=== PATIENT | male | born 1965 | race Caucasian/White ===

== ENCOUNTER 2018-06-09 12:41 | Emergency (ER) | payer MEDICAID ==
[2018-06-09] MEDS ORDERED: CLINDAMYCIN 150 MG CAPSULE PO STA (15:07)
--- NOTE | 2018-06-09 15:21 | ED Physician Documentation ---
History of Present Illness - Stated complaint Stated Complaint: FACE SWELLING - Chief complaint Chief Complaint: Heent - History obtained from History obtained from: Patient - History of Present Illness Timing: How many days ago (4) Pain level max: 7 Pain level now: 5 - Additonal information Additional information: 53-year-old male with right sided facial swelling and pain for the past 4-5 days. Has had rhinorrhea and congestion. No fevers. Nothing makes it better. Worse with palpation and movement Review of Systems Constitutional: denies: Fever Respiratory: denies: Cough GI: denies: Nausea, Vomiting, Diarrhea Skin: denies: Rash Musculoskeletal: denies: Neck pain, Back pain PD PAST MEDICAL HISTORY - Past Medical History Past Medical History: Yes Cardiovascular: Hypertension, High cholesterol Endocrine/Autoimmune: Type 2 diabetes - Past Surgical History Past Surgical History: Yes - Present Medications Home Medications: Ambulatory Orders Medication Instructions Recorded Confirmed Amlodipine Besylate [Norvasc] 5 mg PO DAILY #30 tablet 02/21/15 Buprenorphine HCl/Naloxone HCl 1 film SL ONCE 02/21/15 02/21/15 [Suboxone 8 mg-2 mg Sl Film] metFORMIN [Glucophage] 500 mg PO BIDWM #60 tablet 02/21/15 Clindamycin HCl [Clindamycin 300MG 300 mg PO Q6H #40 capsule 06/09/18 CAP] - Allergies Allergies/Adverse Reactions: Allergies Allergy/AdvReac Type Severity Reaction Status Date / Time Penicillins Allergy Unknown Verified 06/09/18 12:46 - Social History Does the pt smoke?: Yes Smoking Status: Current every day smoker Does the pt drink ETOH?: No Does the pt have substance abuse?: Yes - Immunizations Immunizations are current?: No Immunizations: TDAP >10years/unknown - POLST Patient has POLST: No PD ED PE NORMAL - Vitals Vital signs reviewed: Yes - General General: Alert and oriented X 3, No acute distress - HEENT HEENT: PERRL, EOMI, Ears normal, Moist mucous membranes, Pharynx benign, Other (Edentulous on the maxilla. There is swelling and tenderness to the upper lip extending up the cheek. No drainable abscess.) - Neck Neck: Supple, no meningeal sign - Cardiac Cardiac: RRR - Respiratory Respiratory: No respiratory distress, Clear bilaterally - Derm Derm: Warm and dry - Neuro Neuro: Alert and oriented X 3 Results - Vitals Vitals: Vital Signs - 24 hr 06/09/18 12:47 Temperature 36.6 C Heart Rate 113 H Respiratory 16 Rate Blood Pressure 178/94 H O2 Saturation 97 Oxygen O2 Source Room air PD MEDICAL DECISION MAKING - ED course Complexity details: considered differential, d/w patient ED course: 53-year-old male presents the emergency department with cellulitis of the face, likely dental in origin. He is allergic to penicillin, will place on clindamycin. We will have him follow-up closely with his doctor. He is well- appearing, nontoxic. Afebrile. Patient counseled regarding signs and symptoms for which I believe and urgent re-evaluation would be necessary. Patient with good understanding of and agreement to plan and is comfortable going home at this time This document was made in part using voice recognition software. While efforts are made to proofread this document, sound alike and grammatical errors may occur. No evidence of orbital cellulitis Departure - Departure Disposition: 01 Home, Self Care Clinical Impression: Facial cellulitis Condition: Good Instructions: ED Cellulitis Facial Follow-Up: your,doctor in 2-3 days for skin check [Other] Prescriptions: Clindamycin HCl [Clindamycin 300MG CAP] 300 mg PO Q6H #40 capsule Comments: Take all antibiotics until gone. Return if you worsen. Follow-up with your doctor for further care.
[2018-06-09 15:49] VITALS: BP 168/88
== END 2018-06-09 15:47 | disposition home or self-care (01) ==
LOC: ED 12:41
DX: L03.211 Cellulitis of face (principal); I10 Essential (primary) hypertension; E11.9 Type 2 diabetes mellitus without complications; F17.200 Nicotine dependence, unspecified, uncomplicated; Z79.84 Long term (current) use of oral hypoglycemic drugs
CPT/HCPCS: 99283; A9270

== ENCOUNTER 2019-11-25 13:05 | Outpatient (CLI) | payer MEDICAID | END 2019-11-25 13:06 | disposition critical access hospital (66) | LOC: EMS 13:05 | PROVIDERS: ATTEND Surgery | DX: R06.02 Shortness of breath (principal) | CPT/HCPCS: A0425; A0427; A0999 ==

== ENCOUNTER 2019-11-25 13:28 | Observation (INO) | payer MEDICAID ==
[2019-11-25] MEDS ORDERED: FUROSEMIDE 100 MG/10 ML VIAL IVP STA (13:40)
--- NOTE | 2019-11-25 13:43 | ED Physician Documentation ---
History of Present Illness - Stated complaint Stated Complaint: SOA - Chief complaint Chief Complaint: Resp - History obtained from History obtained from: Patient - Additonal information Additional information: Patient is brought to the emergency department by EMS for chief complaint of shortness of breath. Patient states he has a former diagnosis of congestive heart failure but that he has not had an exacerbation in past few years until now. Patient states his shortness of breath has been gradually increasing over the last couple of months. He states he was seen at [facility] about a mon ago and was started on Lasix. He was discharged and told to follow-up in primary care, the patient states he has not seen his doctor in a few years. Patient states that he does not feel that the furosemide has been terribly helpful. However, he does admit to not taking it for a couple of days here and there when the urination seems to be interrupting his sleep too much. Patient states that his last dose of Lasix was about 2 days ago. Patient denies any shortness chest pain. He denies fevers or cough. He states he has been noticing increasing edema in his lower extremities that is all the way up to his abdominal wall now. The main thing that is been bothering him is that he cannot get around his house very well, due to being extremely short of breath after just a couple of steps. He states that even sitting himself forward causes him to feel short of breath. No other complaints at this time. Patient states that he also has a history of hypertension and diabetes, but stopped taking all his medications about 3 years ago when his was going through cancer treatment. He states that his and he felt depressed and just never got back on his medications. He states that his heart rate generally runs in the low 100's. Review of Systems Ten Systems: 10 systems reviewed and negative Constitutional: reports: Reviewed and negative Eyes: reports: Reviewed and negative Ears: reports: Reviewed and negative Nose: reports: Reviewed and negative Throat: reports: Reviewed and negative Cardiac: reports: Pedal edema Respiratory: reports: Dyspnea GI: reports: Reviewed and negative : reports: Reviewed and negative Skin: reports: Reviewed and negative Musculoskeletal: reports: Reviewed and negative Neurologic: reports: Reviewed and negative Psychiatric: reports: Reviewed and negative Endocrine: reports: Reviewed and negative Immunocompromised: reports: Reviewed and negative PD PAST MEDICAL HISTORY - Past Medical History Cardiovascular: Hypertension, High cholesterol Endocrine/Autoimmune: Type 2 diabetes - Past Surgical History Past Surgical History: Yes - Present Medications Home Medications: Ambulatory Orders Medication Instructions Recorded Confirmed Amlodipine Besylate [Norvasc] 5 mg PO DAILY #30 tablet 02/21/15 Buprenorphine HCl/Naloxone HCl 1 film SL ONCE 02/21/15 02/21/15 [Suboxone 8 mg-2 mg Sl Film] metFORMIN [Glucophage] 500 mg PO BIDWM #60 tablet 02/21/15 Clindamycin HCl [Clindamycin 300MG 300 mg PO Q6H #40 capsule 06/09/18 CAP] - Allergies Allergies/Adverse Reactions: Allergies Allergy/AdvReac Type Severity Reaction Status Date / Time Penicillins Allergy Unknown Verified 11/25/19 13:33 - Social History Does the pt smoke?: Yes Smoking Status: Current every day smoker Does the pt drink ETOH?: No Does the pt have substance abuse?: Yes - Immunizations Immunizations are current?: No Immunizations: TDAP >10years/unknown - POLST Patient has POLST: No PD ED PE NORMAL - Vitals Vital signs reviewed: Yes - General General: Alert and oriented X 3, No acute distress - HEENT HEENT: Atraumatic, PERRL, EOMI, Moist mucous membranes - Neck Neck: Supple, no meningeal sign - Cardiac Cardiac: RRR, No murmur, Strong equal pulses - Respiratory Respiratory: No respiratory distress, Other (Mild rales bilateral lung bases.) - Abdomen Abdomen: Soft, Non tender, Other (Mild distention; patient has trace pitting edema of his abdominal wall.) - Derm Derm: Warm and dry - Extremities Extremities: No deformity, No calf tenderness / cord, Other (Marked edema bilaterally extending from the patient's feet all the way up through his thighs with gradually decreasing severity.) - Neuro Neuro: Alert and oriented X 3 - Psych Psych: Normal mood, Normal affect Results - Vitals Vitals: Vital Signs - 24 hr 11/25/19 11/25/19 11/25/19 13:33 13:55 14:00 Temperature 36.5 C Heart Rate 120 H 115 H 115 H Respiratory 20 16 14 Rate Blood Pressure 145/105 H 156/119 H 147/87 H O2 Saturation 98 83 L 95 11/25/19 11/25/19 11/25/19 14:40 15:30 16:30 Temperature Heart Rate 110 H 111 H 108 H Respiratory 22 20 14 Rate Blood Pressure 128/98 H 138/105 H 99/84 H O2 Saturation 94 94 95 Oxygen O2 Source Nasal cannula Oxygen Flow Rate 2 - EKG (time done) 1406 Rate: Rate (enter#) (109) Rhythm: Sinus tachycardia Phelan: Normal Intervals: Normal [place] QRS: Low voltage (borderline) Ischemia: Normal ST segments, Non specific changes (flattened T-waves, lateral and inferior leads.) Compare to prior EKG: Old EKG unavailable Computer interpretation: Agree with computer - Labs Labs: Laboratory Tests 11/25/19 11/25/19 11/25/19 14:02 14:02 14:02 WBC 8.0 RBC 5.79 Hgb 14.2 Hct 46.9 MCV 81.0 MCH 24.5 L MCHC 30.3 L RDW 14.8 Plt Count 215 MPV 11.7 H Neut # (Auto) 6.7 H Lymph # (Auto) 0.6 L Graham # (Auto) 0.4 Eos # (Auto) 0.1 Baso # (Auto) 0.0 Absolute Nucleated RBC 0.00 Nucleated RBC % 0.0 PT 17.4 H INR 1.6 H Sodium 139 Potassium 4.3 Chloride 100 L Carbon Dioxide 27 Anion Gap 12.0 BUN 16 Creatinine 0.9 Estimated GFR (MDRD) 87 L Glucose 271 H Calcium 8.8 Total Bilirubin 1.0 AST 19 ALT 14 Alkaline Phosphatase 96 Troponin I High Sens B-Natriuretic Peptide Total Protein 7.0 Albumin 3.5 Globulin 3.5 Albumin/Globulin Ratio 1.0 Lipase 24 11/25/19 11/25/19 11/25/19 14:02 14:02 15:49 WBC RBC Hgb Hct MCV MCH MCHC RDW Plt Count MPV Neut # (Auto) Lymph # (Auto) Graham # (Auto) Eos # (Auto) Baso # (Auto) Absolute Nucleated RBC Nucleated RBC % PT INR Sodium Potassium Chloride Carbon Dioxide Anion Gap BUN Creatinine Estimated GFR (MDRD) Glucose Calcium Total Bilirubin AST ALT Alkaline Phosphatase Troponin I High Sens 27.1 H* 32.5 H* B-Natriuretic Peptide 2118 H Total Protein Albumin Globulin Albumin/Globulin Ratio Lipase - Rads (name of study) CXR Radiology: Final report received, EMP read indepedently, See rad report (Final radiologist interpretation: Bilateral interstitial pulmonary opacity consistent with atypical pneumonia versus edema; bibasilar pneumonia with small bilateral parapneumonic effusions, follow-up PA lateral chest x-rays or chest CT is recommended to ensure resolution/exclude underlying neoplasm) PD MEDICAL DECISION MAKING - ED course Complexity details: reviewed old records, reviewed results, re-evaluated patient, considered differential, d/w patient ED course: The patient was worked up with labs, chest x-ray, and EKG. He was placed on the cardiac exercise specialist which showed sinus tachycardia in the 110's. The patient has been noncompliant with his medications for the last few years and had even recently been not completely compliant with his Lasix regimen. He was given 100 mg of Lasix IV here in the emergency department. Departure - Departure Disposition: [facility] DC/Xfer Clinical Impression: Acute exacerbation of CHF (congestive heart failure) Qualifiers: Heart failure type: unspecified Qualified Code(s): I50.9 - Heart failure, unspecified Pneumonia Qualifiers: Pneumonia type: due to unspecified organism Laterality: bilateral Lung location: lower lobe of lung Qualified Code(s): J18.9 - Pneumonia, unspecified organism Condition: Serious
--- NOTE | 2019-11-25 14:01 | XRAY Report ---
PROCEDURE: Chest 1 View X-Ray INDICATIONS: chest pain TECHNIQUE: One view of the chest was acquired. COMPARISON: FINDINGS: Surgical changes and devices: None. Lungs and pleura: No pneumothorax. Small bilateral pleural effusions. Moderate interstitial pulmonar y opacity.Moderate bibasilar atelectasis versus pneumonia. Mediastinum: Mediastinal contours appear normal. Cardiac silhouette is not well seen. Bones and chest wall: No suspicious bony lesions. Overlying soft tissues appear unremarkable. IMPRESSION: 1. Bilateral interstitial pulmonary opacity consistent with atypical pneumonia versus edema. 2. Bibasilar pneumonia with small bilateral parapneumonic effusions. Follow-up PA and lateral chest x -rays or chest CT is recommended to ensure resolution, and to exclude underlying neoplasm. Reviewed by: Bettye Serrano MD on 11/25/2019 1:59 PM PDT Approved by: Bettye Serrano MD on 11/25/2019 1:59 PM PDT Station ID: [id number]
[2019-11-25 14:09] LABS: BASOPHILS % (AUTO) 0.5 %; EOSINOPHILS # (AUTO) 0.1 10^3/uL (0.0-0.7); EOSINOPHILS % (AUTO) 1.8 %; HGB - HEMOGLOBIN 14.2 g/dL (14.0-18.0); LYMPHOCYTES # (AUTO) 0.6 10^3/uL (1.5-3.5); LYMPHOCYTES % (AUTO) 7.8 %; MEAN CORPUSCULAR HEMOGLOBIN 24.5 pg (27.0-31.0); MEAN CORPUSCULAR HGB CONC 30.3 g/dL (32.0-36.0); MEAN PLATELET VOLUME 11.7 fL (7.4-11.4); MONOCYTES # (AUTO) 0.4 10^3/uL (0.0-1.0); MONOCYTES % (AUTO) 5.4 %; NEUTROPHILS # (AUTO) 6.7 10^3/uL (1.5-6.6); NEUTROPHILS % (AUTO) 84.2 %; PLT - PLATELET COUNT 215 10^3/uL (130-450); RED BLOOD COUNT 5.79 10^6/uL (4.70-6.10); RED CELL DISTRIBUTION WIDTH 14.8 % (12.0-15.0)
[2019-11-25 14:16] LABS: INR 1.6 (0.8-1.2); PT - PROTHROMBIN TIME 17.4 secs (9.9-12.6)
[2019-11-25 14:24] LABS: ALBUMIN 3.5 g/dL (3.2-5.5); CALCIUM 8.8 mg/dL (8.5-10.3); CREATININE 0.9 mg/dL (0.6-1.2)
[2019-11-25] MEDS ORDERED: cefTRIAXone 2 GM in SODIUM CHLORIDE 0.9% MINIBAG 100 ML IV STA (14:30)
[2019-11-25] MEDS ORDERED: AZITHROMYCIN INJ 500 MG in SODIUM CHLORIDE 0.9% 250 ML IV STA (14:31)
[2019-11-25] MEDS ORDERED: ASPIRIN CHEW 81 MG TABLET PO STA (16:56)
[2019-11-25] MEDS ORDERED: ONDANSETRON ODT 4 MG TABLET TL PRN (17:04)
[2019-11-25] MEDS ORDERED: oxyCODONE 5 MG TABLET PO PRN (17:04)
[2019-11-25] MEDS ORDERED: MAGNESIUM SULFATE 2 GRAM 2 GM/50 ML BAG IV ONE (17:07)
--- NOTE | 2019-11-25 17:37 | HISTORY & PHYSICAL EXAMINATION ---
Chief Complaint - Chief Complaint Chief Complaint: SOB History of Present Illness - Admitted From Admitted From:: Home via EMS and ED - History Obtained From Records Reviewed: [facility] History obtained from: Patient Exam Limitations: none - History of Present Illness HPI Comment/Other: The patient is a 54 yo male admitted from home via EMS for severe SOB. He has a PMH significant for CHF, DM and HTN. He was recently seen in [place] for similar symptoms of SOB and was treated with diuretics and discharged with Lasix rx. The patient reports feeling worse when taking the medication, stating swelling in his legs and feet worsened. He has recently missed his doses of Lasix yesterday and the day prior. SOB has been worsening over the past week and reports a new non-productive cough over the past two weeks. His SOB has disabled him from sleeping flat at night and has to sleep sitting upright. This morning his difficulty in breathing was so severe he was unable to walk more than a few steps, he also noted he was nauseated, diaphoretic, and felt chest discomfort and palpitations. He reports feeling numbness and tremulousness in his hands this morning prompting him to call EMS. The patient notes having a poor appetite lately and an increase amount of daily water intake, estimating 2-3 liters daily. PE significant for basilar crackles in bilateral lungs, R>L, irregular heart sounds, +3 pitting edema in BLE, +1-2 edema in BUE, hands and feet extremely cold to the touch, ruddiness in hands, and numbness with dryness in feet. History - Past Medical History Cardiovascular: reports: Congestive heart failure, Hypertension Respiratory: reports: None Neuro: reports: None Endocrine/Autoimmune: reports: Type 2 diabetes GI: reports: GERD (Occasional) : reports: None HEENT: reports: None Psych: reports: None Musculoskeletal: reports: Chronic back pain Derm: reports: None MRSA Hx?: No - Past Surgical History Ortho: reports: Other (Unspecified R hand surgery) Cardiovascular: reports: Cardiac catheterization (2013) - Family & Social History Family History: Mother: , Father: Family History Comment/Other: Mother passed in her 60s from unspecified cancer. Father passed in his 50s from unknown cause, hx of ETOH abuse and homelessness. 2 Sisters passed in their 60's from unspecified cancers. Living arrangement: At home Living Situation: Alone Social History Notes: 3 years ago from cancer. Was his childhood sweetheart. Since her passing he has felt depressed. Son was tragically killed by a motor vehicle at the age of 4. Daughter and grandaughter live in town and are active in his life. 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 Has been a pack a day smoker for over 40 years. Denies alcohol use. Previous abuse of opiods in 2008 prompting him to begin a suboxone program. He occasional smokes a few hits of marijuana. - Substance History Use: Uses substance without health or social issues: NONE Dependence: Experiences withdrawal or developed tolerances: Tobacco, Opioid Tobacco Details: Cigarettes - POLST Patient has POLST: No Meds/Allgy - Home Medications Home Medications: Ambulatory Orders Medication Instructions Recorded Confirmed Amlodipine Besylate [Norvasc] 5 mg PO DAILY #30 tablet 02/21/15 Buprenorphine HCl/Naloxone HCl 1 film SL ONCE 02/21/15 02/21/15 [Suboxone 8 mg-2 mg Sl Film] metFORMIN [Glucophage] 500 mg PO BIDWM #60 tablet 02/21/15 Clindamycin HCl [Clindamycin 300MG 300 mg PO Q6H #40 capsule 06/09/18 CAP] - Allergies Allergies/Adverse Reactions: Allergies Allergy/AdvReac Type Severity Reaction Status Date / Time Penicillins Allergy Unknown Verified 11/25/19 13:33 Review of Systems - Constitutional Constitutional: reports: Fatigue, Poor appetite, Diaphoresis, Weight gain (Pt estimates about 5-10 pounds.), Other (reports having a cold sweat this morning.) - Ears, Nose & Throat Ears, Nose & Throat: reports: Nasal discharge (reports recent nosebleeds occurring this past week and frequent nasal discharge.), Nosebleeds - Cardiovascular Cariovascular: reports: Palpitations (Palpitations felt this morning, edema has beenprogressive over the past month, pt reports not being able to walk a few steps without feeling very dyspnic.), Edema, Exertional dyspnea, Orthopnea - Respiratory Respiratory: reports: Cough (New onset cough [id number], non productive, occasional.), Orthopnea, SOB with exertion - Gastrointestinal Gastrointestinal: reports: Diarrhea (reports occasional bouts of diarrhea recently.), Nausea (nauseated this morning.), Poor appetite (Pt has noted a decrease in his appetite but not his water intake.) - Musculoskeletal Musculoskeletal: reports: Back pain (Chronic back pain.), Other (Pain in lower extremities from swelling) - Psychiatric Psychiatric: reports: Depression, Anxiety (worsening symptoms have been making him feel anxious.) - Endocrine Endocrine: reports: Polydypsia - All Other Systems All Other Systems: reports: Reviewed and negative Prior Level of Functionality: Prior to this admission patient is performing all of his own ADLs at home, however admits to letting the maintenance of the house and cleaning go a bit more lately. He uses a cane to ambulate and more recently in the past couple of weeks has been using an office chair with wheels to get around. Daughter visits him occasionally and brings food. Exam - Vital Signs Reviewed Vital Signs: Yes Vital Signs: Vital Signs x48h Temp Pulse Resp BP Pulse Ox 11/25/19 16:30 108 H 14 99/84 H 95 11/25/19 15:30 111 H 20 138/105 H 94 11/25/19 14:40 110 H 22 128/98 H 94 11/25/19 14:00 115 H 14 147/87 H 95 11/25/19 13:55 115 H 16 156/119 H 83 L 11/25/19 13:33 36.5 C 120 H 20 145/105 H 98 - Physical Exam General Appearance: positive: No acute distress, Alert Eyes Bilateral: positive: Normal inspection, PERRL ENT: positive: ENT inspection nml Neck: positive: Other (Noted palpated JVD at full upright sitting position) Respiratory: positive: No respiratory distress, Other (bilateral basal inspiratory crackles, R>L) Peripheral Pulses: positive: Other (radial pulses +1, pedal pulses barely palpable.) Abdomen: positive: Non-tender, Other (Abdomen mildly distended, hyperactive bowel sounds.) Back: positive: Nml inspection Skin: positive: Dry, Pallor, Other (bilateral hands lona, bilateral feet extremely dry, cracked, freezing cold to the touch.) Neurologic/Psychiatric: positive: Oriented x3 Conclusion/Plan - Problem List (1) Acute exacerbation of CHF (congestive heart failure) Conclusion/Plan: Patient was diagnosed with CHF 6 years ago but has not taken his medications in 3 years. Today BNP is 2118 and is having difficulty breathing with BLE edema and basilar crackles in lungs. He has received 100mg of lasix while in the ED and has since voided 1750mL. He will need to continue diuresis in order to relieve excessive fluid status. BNP should be repeated to monitor fluid status. His reported symtpoms from this morning of nausea, diaphoresis, chest palpitations and discomfort could indicate an WI. EKG in ED is non-changed from previous record EKG. High sensitivity Troponin slightly elevated in 30's, repeat of troponin is warranted. Unable to determine type of CHF due to echo services not available, one should be performed as soon as it is. Salty foods should be avoided to prevent fluid retention. Kidney and electrolyte levels should be monitored while receiving diuretics, electrolytes should be replaced on an as needed basis. Plan: -Monitor vitals q4 -Monitor I/Os -Repeat BNP in morning -Repeat BMP in morning -Repeat Troponin -Furosemide 40mg IVP BID -Perform echo when services return on Tuesday -Low Na diet Qualifiers: Heart failure type: unspecified Qualified Code(s): I50.9 - Heart failure, unspecified (2) Diabetes mellitus Conclusion/Plan: Patient was diagnosed with DM 6 years ago and has not been taking his medication for 3 years ago. Today bedside glucose is 271. Will need to check his A1C to determine what his sugar levels have been over the last couple of months; this will help to plan an adequate discharge medication. To manage his BG while in observation he will receive lantus insulin and have sliding scale insulin for meal times. BG should be checked AC/HS. Plan: -Obtain hgA1C -Lantus 10u sq -Sliding scale novolog per protocol AC/HS Qualifiers: Diabetes mellitus type: type 2 Diabetes mellitus terminal system operator insulin use: without shelter use Diabetes mellitus complication status: with hyperglycemia Qualified Code(s): E11.65 - Type 2 diabetes mellitus with hyperglycemia (3) Hypertension Conclusion/Plan: Previously diagnosed with HTN. Poorly controlled upon admission. Received 100mg of lasix in ED which effectively decreased his BP. BP should be monitored q 4hr to ensure not severely elevated. PRN hydralazine will be available for SBP >160. Pt will most likely be discharged on ACEi for chronic maintenance. Plan: -Monitor BP q4hr -PRN Hydralazine 10mg IVP for SBP>160 Qualifiers: Hypertension type: essential hypertension Qualified Code(s): I10 - Essential (primary) hypertension (4) Non compliance w medication regimen Conclusion/Plan: Pt reports to not have been taking his medications since his 's passing 3 years ago. Before her passing he wanted to get better, even tried changing his diet. Once his got sick his focus was on her and hasn't recovered from his depression yet. He fully understands his medications will help with his symptoms. Social work may need to be involved to assess his home status and ability to care for himself being that he has been using an office chair to get around and letting the house maintenance go. (5) Abnormal chest xray Conclusion/Plan: Chest x-ray found opacities possibly indicative of PNA. However, pt's WBC is 8, he is afebrile, and has a BNP of 2118. Most likely opacities are pulmonary edema from his CHF exacerbation. Diuresis will help to clear fluid from lungs. Already received 100mg of lasix in the ED and has voided 1750ml. Will continue to monitor vitals, administer diuretics, monitor electrolytes and provide supplemental O2 as necessary to maintain sats >92% Plan: -Furosemide 40mg IVP BID -Monitor vitals q4hr -Provide supplemental O2 to maintain sats >92% -Repeat chest X-ray in AM -Repeat CBC in AM (6) Chronic pain disorder Conclusion/Plan: Patient reports a previous opioid abuse in 2008 which lasted approximately 1 year. While using he was buying opioids from friends and on the streets. encouraged him to stop which he did with the use and prescription of suboxone. He has been on suboxone since 2009. Arrived to with his own script of suboxone, meds were placed in custody of pharmacy here and will be distributed to the patient following his prescription plan. Plan: -Resume home med of suboxone - Lab Results Lab results reviewed: Yes Fish Bones: 11/25/19 14:02 11/25/19 14:02 - Diagnostic Imaging Results Diagnostic Imaging Results: positive: See rad report - EKG Results EKG Interpreted Independently: No EKG Comparison: Unchanged from prior EKG Core Measures - Anticipated LOS I expect patient to be DC'd or transferred within 96 hours.: Yes - DVT/VTE - Prophylaxis VTE/DVT Device ordered at admit?: No VTE/DVT Prophylaxis med ordered at admit?: Yes - Stroke - Rehab Assessment Rehab services assessment to be ordered?: No - AMI - Statin at Admit Aspirin Prescribed on Admit: No
[2019-11-25] MEDS: SODIUM CHLORIDE FLUSH 0.9% 10 ML SYRINGE IVP PRN ×2 (18:28→20:56)
[2019-11-25] MEDS: INSULIN ASPART 300 UNIT/3 ML PEN SUBQ SCH (20:56)
[2019-11-25] MEDS: FUROSEMIDE 40 MG/4 ML VIAL IVP SCH (20:56)
[2019-11-25] MEDS: INSULIN GLARGINE 300 UNIT/3 ML PEN SUBQ SCH (20:58)
[2019-11-26] MEDS: SODIUM CHLORIDE FLUSH 0.9% 10 ML SYRINGE IVP SCH ×4 (01:32→23:56)
[2019-11-26] MEDS: ACETAMINOPHEN 325 MG TABLET PO PRN ×5 (01:32→20:40)
[2019-11-26 05:37] LABS: BASOPHILS # (AUTO) 0.1 10^3/uL (0.0-0.1); BASOPHILS % (AUTO) 0.7 %; EOSINOPHILS # (AUTO) 0.2 10^3/uL (0.0-0.7); EOSINOPHILS % (AUTO) 2.2 %; HGB - HEMOGLOBIN 12.7 g/dL (14.0-18.0); LYMPHOCYTES # (AUTO) 1.7 10^3/uL (1.5-3.5); LYMPHOCYTES % (AUTO) 19.7 %; MEAN CORPUSCULAR HEMOGLOBIN 24.7 pg (27.0-31.0); MEAN CORPUSCULAR HGB CONC 31.2 g/dL (32.0-36.0); MEAN CORPUSCULAR VOLUME 79.2 fL (80.0-94.0); MEAN PLATELET VOLUME 11.3 fL (7.4-11.4); MONOCYTES # (AUTO) 0.9 10^3/uL (0.0-1.0); MONOCYTES % (AUTO) 10.7 %; NEUTROPHILS # (AUTO) 5.8 10^3/uL (1.5-6.6); NEUTROPHILS % (AUTO) 66.2 %; PLT - PLATELET COUNT 208 10^3/uL (130-450); RED BLOOD COUNT 5.14 10^6/uL (4.70-6.10); RED CELL DISTRIBUTION WIDTH 14.8 % (12.0-15.0); WHITE BLOOD COUNT 8.7 x10^3/uL (4.8-10.8)
[2019-11-26 05:47] LABS: CALCIUM 8.4 mg/dL (8.5-10.3); CREATININE 1.1 mg/dL (0.6-1.2); MAGNESIUM 1.9 mg/dL (1.7-2.8)
[2019-11-26] MEDS: INSULIN ASPART 300 UNIT/3 ML PEN SUBQ SCH ×4 (08:47→21:18)
[2019-11-26] MEDS: POTASSIUM CHLORIDE 20 MEQ TABLET PO SCH (08:48)
[2019-11-26] MEDS: FUROSEMIDE 40 MG/4 ML VIAL IVP SCH ×2 (08:48→20:41)
[2019-11-26] MEDS: ENOXAPARIN 40 MG/0.4 ML SYRINGE SUBQ SCH (08:48)
[2019-11-26] MEDS: SUBOXONE 8 MG/2 MG FILM SL SCH (08:49)
--- NOTE | 2019-11-26 10:34 | PHARMACY PROGRESS NOTE ---
- Best Possible Medication History Admit Date and Time: 11/25/19 2294 Processed by: Pharmacy Medication History completed: Yes Patient Interview: Completed Secondary Source(s): Pharmacy records, Insurance records As the person ultimately responsible for medication therapy, providers are able to order a medication from an existing home medication list in [facility] via the "Reconcile Routine" prior to Confirmation of that medication by pc support specialist. Such practice is discouraged except when the physician, in their clinical judgment, deems that a medical need exists for a medication without regard to previous use.
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
--- NOTE | 2019-11-26 11:33 | XRAY Report ---
PROCEDURE: Thoracic Spine 2 View INDICATIONS: severe pain w deform TECHNIQUE: 3 views of the thoracic spine were acquired. COMPARISON: None. FINDINGS: Bones: Bones are osteopenic. Several upper and mid thoracic spine vertebral bodies are poorly visual ized due to severe osteopenia. Multilevel degenerative disc disease. No definite fractures or disloca tions. No suspicious bony lesions. 12 pairs of ribs are noted, and appear intact where visualized. Soft tissues: No paravertebral stripe thickening. IMPRESSION: No definite vertebral body compression fracture. Please note several thoracic spine vertebral bodies are poorly visualized due to osteopenia and compression fracture cannot be completely excluded. Recom mend CT scan of the thoracic spine for further evaluation if clinically indicated. Reviewed by: Lillian Hernandez MD, PhD on 11/26/2019 11:32 AM PDT Approved by: Lillian Hernandez MD, PhD on 11/26/2019 11:32 AM PDT Station ID: [id number]
--- NOTE | 2019-11-26 11:35 | XRAY Report ---
PROCEDURE: Lumbar Spine w/Flex/Ext INDICATIONS: severe pain, deformed TECHNIQUE: views of the lumbar spine acquired. COMPARISON: None. FINDINGS: Bones: 5 cmd-ejo-jevlssm vertebrae are present. There is normal bony alignment. Convex right thora columbar spine scoliosis with Vega angle of approximately 21 degrees. No vertebral body compression f ractures. No suspicious bony lesions. Multilevel moderate degenerative disc disease and facet arthr opathy. Soft tissues: Overlying bowel gas pattern is normal. No suspicious soft tissue calcifications. Flexion/extension: There is normal range of motion, with preserved normal alignment. IMPRESSION: 1. Multilevel degenerative disc disease. 2. Multilevel facet arthropathy. 3. No fracture. No acute osseous lesion. If there is continued clinical concern for pathology, then M RI should be considered for further evaluation. Reviewed by: Lillian Hernandez MD, PhD on 11/26/2019 11:34 AM PDT Approved by: Lillian Hernandez MD, PhD on 11/26/2019 11:34 AM PDT Station ID: [id number]
--- NOTE | 2019-11-26 12:02 | PROVIDER PROGRESS NOTE ---
Subjective - Prog Note Date Prog Note Date: 11/26/19 Prog Note Time: 10:00 - Subjective Pt reports feeling: Improved (Pt reports to be feeling much better today, denies feeling SOB or having any episodes of SOB over night.) Current Medications - Current Medications Current Medications: Active Medications Generic Name Dose Route Start Last Admin Trade Name Freq PRN Reason Stop Dose Admin Acetaminophen 650 mg 11/25/19 17:04 11/26/19 11:53 Tylenol PO 650 mg Q4HR PRN Administration Pain 1 to 4 Enoxaparin Sodium 40 mg 11/26/19 09:00 11/26/19 08:48 Lovenox SUBQ 40 mg DAILY HOWARD Administration Furosemide 40 mg 11/25/19 21:00 11/26/19 08:48 Lasix Inj 40 Mg Vial IVP 40 mg BID HOWARD Administration Insulin Aspart 1 - 9 unit 11/25/19 21:00 11/26/19 11:54 Novolog SUBQ 1 unit 0800,1200,1700,2100 HOWARD Administration Protocol Insulin Glargine 10 unit 11/25/19 21:00 11/25/19 20:58 Lantus Solostar SUBQ 10 unit QPM HOWARD Administration Ondansetron HCl 4 mg 11/25/19 17:04 Zofran Odt TL Q6HR PRN Nausea / Vomiting Oxycodone HCl 5 mg 11/25/19 17:04 Roxicodone PO Q4HR PRN Pain 5 to 7 Suboxone 8 Mg/2 Mg 1 each 11/26/19 09:00 11/26/19 08:49 Film SL 1 each DAILY HOWARD Administration Potassium Chloride 20 meq 11/26/19 08:00 11/26/19 08:48 K-Dur PO 20 meq DAILYWM HOWARD Administration Sodium Chloride 10 ml 11/25/19 17:04 11/25/19 20:56 Normal Saline Flush 0.9% IVP 10 ml PRN PRN Administration NEEDED PER PROVIDER ORDERS Sodium Chloride 10 ml 11/26/19 01:00 11/26/19 08:48 Normal Saline Flush 0.9% IVP 10 ml 0100,0900,1700 HOWARD Administration Buprenorphine HCl/Naloxone HCl [Suboxone 8 mg-2 mg Sl Film] 1 film SL DAILY 02/21/15 Furosemide [Lasix] 40 mg PO DAILY 11/26/19 Objective - Vital Signs/Intake & Output Reviewed Vital Signs: Yes Vital Signs: Vital Signs x48h Temp Pulse Pulse Resp BP BP Pulse Ox 11/26/19 09:59 83 96 11/26/19 08:20 36.6 C 86 127/69 90 L 11/26/19 05:05 36.6 C 81 16 101/53 L 92 Intake & Output: Intake & Output 11/23/19 11/24/19 11/25/19 11/26/19 23:59 23:59 23:59 23:59 Intake Total 900 610 Output Total 2750 980 Balance -7290 -370 - Objective General Appearance: positive: No acute distress, Alert Eyes Bilateral: positive: Normal inspection ENT: positive: ENT inspection nml, Pharynx nml Neck: positive: Nml inspection, No JVD Respiratory: positive: No respiratory distress, Breath sounds nml Cardiovascular: positive: Regular rate & rhythm, No murmur, No gallop Abdomen: positive: Non-tender, Nml bowel sounds Back: positive: Other (Noted deformity, appears as though R mid and upper back slightly protrude more than left, creating small progressive hump) Skin: positive: Other (Hands remain lona, but less edematous than yesterday. Skin on BLE from knees down is very dry, tight and pink.) Extremities: positive: Pedal edema, Other (Edema to BLE from knees down is increased from yesterday, possibly due to patient sitting at the side of bed. Temp of extremities is improved and is now very warm, cap refill <3sec, pedal pulses barely palpable.) Neurologic/Psychiatric: positive: Oriented x3, Motor nml - Lab Results Fish Bones: 11/26/19 05:25 11/26/19 05:25 Other Labs: Lab Results x24hrs 11/26/19 11/26/19 11/26/19 Range/Units 05:25 05:25 05:25 WBC (4.8-10.8) x10^3/uL RBC (4.70-6.10) 10^6/uL Hgb (14.0-18.0) g/dL Hct (42.0-52.0) % MCV (80.0-94.0) fL MCH (27.0-31.0) pg MCHC (32.0-36.0) g/dL RDW (12.0-15.0) % Plt Count (130-450) 10^3/uL MPV (7.4-11.4) fL Neut # (Auto) (1.5-6.6) 10^3/uL Lymph # (Auto) (1.5-3.5) 10^3/uL Garfield # (Auto) (0.0-1.0) 10^3/uL Eos # (Auto) (0.0-0.7) 10^3/uL Baso # (Auto) (0.0-0.1) 10^3/uL Absolute Nucleated RBC x10^3/uL Nucleated RBC % /100WBC PT (9.9-12.6) secs INR (0.8-1.2) Sodium 136 (135-145) mmol/L Potassium 3.8 (3.5-5.0) mmol/L Chloride 100 L (101-111) mmol/L Carbon Dioxide 29 (21-32) mmol/L Anion Gap 7.0 (6-13) BUN 20 (6-20) mg/dL Creatinine 1.1 (0.6-1.2) mg/dL Estimated GFR (MDRD) 69 L (>89) Glucose 104 H (70-100) mg/dL Calcium 8.4 L (8.5-10.3) mg/dL Magnesium 1.9 (1.7-2.8) mg/dL Total Bilirubin (0.2-1.0) mg/dL AST (10-42) IU/L ALT (10-60) IU/L Alkaline Phosphatase (42-121) IU/L Troponin I High Sens 35.4 H* (2.3-19.7) ng/L B-Natriuretic Peptide 1578 H (5-100) pg/mL Total Protein (6.7-8.2) g/dL Albumin (3.2-5.5) g/dL Globulin (2.1-4.2) g/dL Albumin/Globulin Ratio (1.0-2.2) Lipase (22-51) U/L 11/26/19 11/25/19 11/25/19 Range/Units 05:25 22:00 15:49 WBC 8.7 (4.8-10.8) x10^3/uL RBC 5.14 (4.70-6.10) 10^6/uL Hgb 12.7 L (14.0-18.0) g/dL Hct 40.7 L (42.0-52.0) % MCV 79.2 L (80.0-94.0) fL MCH 24.7 L (27.0-31.0) pg MCHC 31.2 L (32.0-36.0) g/dL RDW 14.8 (12.0-15.0) % Plt Count 208 (130-450) 10^3/uL MPV 11.3 (7.4-11.4) fL Neut # (Auto) 5.8 (1.5-6.6) 10^3/uL Lymph # (Auto) 1.7 (1.5-3.5) 10^3/uL Garfield # (Auto) 0.9 (0.0-1.0) 10^3/uL Eos # (Auto) 0.2 (0.0-0.7) 10^3/uL Baso # (Auto) 0.1 (0.0-0.1) 10^3/uL Absolute Nucleated RBC 0.00 x10^3/uL Nucleated RBC % 0.0 /100WBC PT (9.9-12.6) secs INR (0.8-1.2) Sodium (135-145) mmol/L Potassium (3.5-5.0) mmol/L Chloride (101-111) mmol/L Carbon Dioxide (21-32) mmol/L Anion Gap (6-13) BUN (6-20) mg/dL Creatinine (0.6-1.2) mg/dL Estimated GFR (MDRD) (>89) Glucose (70-100) mg/dL Calcium (8.5-10.3) mg/dL Magnesium (1.7-2.8) mg/dL Total Bilirubin (0.2-1.0) mg/dL AST (10-42) IU/L ALT (10-60) IU/L Alkaline Phosphatase (42-121) IU/L Troponin I High Sens 36.3 H* 32.5 H* (2.3-19.7) ng/L B-Natriuretic Peptide (5-100) pg/mL Total Protein (6.7-8.2) g/dL Albumin (3.2-5.5) g/dL Globulin (2.1-4.2) g/dL Albumin/Globulin Ratio (1.0-2.2) Lipase (22-51) U/L 11/25/19 11/25/19 11/25/19 Range/Units 14:02 14:02 14:02 WBC (4.8-10.8) x10^3/uL RBC (4.70-6.10) 10^6/uL Hgb (14.0-18.0) g/dL Hct (42.0-52.0) % MCV (80.0-94.0) fL MCH (27.0-31.0) pg MCHC (32.0-36.0) g/dL RDW (12.0-15.0) % Plt Count (130-450) 10^3/uL MPV (7.4-11.4) fL Neut # (Auto) (1.5-6.6) 10^3/uL Lymph # (Auto) (1.5-3.5) 10^3/uL Garfield # (Auto) (0.0-1.0) 10^3/uL Eos # (Auto) (0.0-0.7) 10^3/uL Baso # (Auto) (0.0-0.1) 10^3/uL Absolute Nucleated RBC x10^3/uL Nucleated RBC % /100WBC PT (9.9-12.6) secs INR (0.8-1.2) Sodium 139 (135-145) mmol/L Potassium 4.3 (3.5-5.0) mmol/L Chloride 100 L (101-111) mmol/L Carbon Dioxide 27 (21-32) mmol/L Anion Gap 12.0 (6-13) BUN 16 (6-20) mg/dL Creatinine 0.9 (0.6-1.2) mg/dL Estimated GFR (MDRD) 87 L (>89) Glucose 271 H (70-100) mg/dL Calcium 8.8 (8.5-10.3) mg/dL Magnesium (1.7-2.8) mg/dL Total Bilirubin 1.0 (0.2-1.0) mg/dL AST 19 (10-42) IU/L ALT 14 (10-60) IU/L Alkaline Phosphatase 96 (42-121) IU/L Troponin I High Sens 27.1 H* (2.3-19.7) ng/L B-Natriuretic Peptide 2118 H (5-100) pg/mL Total Protein 7.0 (6.7-8.2) g/dL Albumin 3.5 (3.2-5.5) g/dL Globulin 3.5 (2.1-4.2) g/dL Albumin/Globulin Ratio 1.0 (1.0-2.2) Lipase 24 (22-51) U/L 11/25/19 11/25/19 Range/Units 14:02 14:02 WBC 8.0 (4.8-10.8) x10^3/uL RBC 5.79 (4.70-6.10) 10^6/uL Hgb 14.2 (14.0-18.0) g/dL Hct 46.9 (42.0-52.0) % MCV 81.0 (80.0-94.0) fL MCH 24.5 L (27.0-31.0) pg MCHC 30.3 L (32.0-36.0) g/dL RDW 14.8 (12.0-15.0) % Plt Count 215 (130-450) 10^3/uL MPV 11.7 H (7.4-11.4) fL Neut # (Auto) 6.7 H (1.5-6.6) 10^3/uL Lymph # (Auto) 0.6 L (1.5-3.5) 10^3/uL Garfield # (Auto) 0.4 (0.0-1.0) 10^3/uL Eos # (Auto) 0.1 (0.0-0.7) 10^3/uL Baso # (Auto) 0.0 (0.0-0.1) 10^3/uL Absolute Nucleated RBC 0.00 x10^3/uL Nucleated RBC % 0.0 /100WBC PT 17.4 H (9.9-12.6) secs INR 1.6 H (0.8-1.2) Sodium (135-145) mmol/L Potassium (3.5-5.0) mmol/L Chloride (101-111) mmol/L Carbon Dioxide (21-32) mmol/L Anion Gap (6-13) BUN (6-20) mg/dL Creatinine (0.6-1.2) mg/dL Estimated GFR (MDRD) (>89) Glucose (70-100) mg/dL Calcium (8.5-10.3) mg/dL Magnesium (1.7-2.8) mg/dL Total Bilirubin (0.2-1.0) mg/dL AST (10-42) IU/L ALT (10-60) IU/L Alkaline Phosphatase (42-121) IU/L Troponin I High Sens (2.3-19.7) ng/L B-Natriuretic Peptide (5-100) pg/mL Total Protein (6.7-8.2) g/dL Albumin (3.2-5.5) g/dL Globulin (2.1-4.2) g/dL Albumin/Globulin Ratio (1.0-2.2) Lipase (22-51) U/L - Diagnostic Imaging Diagnostic Imaging Results: positive: See rad report ABX Reporting Has patient been on IV antibiotics over the past 48 hours?: Yes Assessment/Plan - Problem List (1) Acute exacerbation of CHF (congestive heart failure) Impression: Patient was diagnosed with CHF 6 years ago but has not taken his medications in 3 years. Today BNP is 2118 and is having difficulty breathing with BLE edema and basilar crackles in lungs. He has received 100mg of lasix while in the ED and has since voided 1750mL. He will need to continue diuresis in order to relieve excessive fluid status. BNP should be repeated to monitor fluid status. His reported symtpoms from this morning of nausea, diaphoresis, chest palpitations and discomfort could indicate an [place]. EKG in ED is non-changed from previous record EKG. High sensitivity Troponin slightly elevated in 30's, repeat of troponin is warranted. Unable to determine type of CHF due to echo services not available, one should be performed as soon as it is. Salty foods should be avoided to prevent fluid retention. Kidney and electrolyte levels should be monitored while receiving diuretics, electrolytes should be replaced on an as needed basis. Plan: -Monitor vitals q4 -Monitor I/Os -Repeat BNP in morning -Repeat BMP in morning -Repeat Troponin -Furosemide 40mg IVP BID -Perform echo when services return on Tuesday -Low Na diet Qualifiers: Heart failure type: unspecified Qualified Code(s): I50.9 - Heart failure, unspecified Update 11/25 The denies feeling any chest palpitations, chest discomfort, diaphoresis, SOB, or nausea. Troponins leveled out around 35 over night and repeated this morning, found to be 35.4. BNP has decreased to 1578, will continue to need diuresis to improve BNP further. Vitals have remained WNL overnight. Pt is on a low sodium diet. Would benefit from echo once service is available. Electrolytes have remained WNL, no replacements necessary, BUN increased to 20, Cr increased to 1.1, not concerning. Plan: -Monitor vitals q4hr -Perform echo once available -Furosemide 40mg IVP BID -Repeat BMP in morning -Repeat BNP in morning -Monitor I/Os -Continue low sodium diet Qualifiers: Heart failure type: unspecified Qualified Code(s): I50.9 - Heart failure, unspecified (2) Diabetes mellitus Impression: Patient was diagnosed with DM 6 years ago and has not been taking his medication for 3 years ago. Today bedside glucose is 271. Will need to check his A1C to determine what his sugar levels have been over the last couple of months; this will help to plan an adequate discharge medication. To manage his BG while in observation he will receive lantus insulin and have sliding scale insulin for meal times. BG should be checked AC/HS. Plan: -Obtain hgA1C -Lantus 10u sq -Sliding scale novolog per protocol AC/HS Qualifiers: Diabetes mellitus type: type 2 Diabetes mellitus exterminator termite insulin use: without exterminator termite use Diabetes mellitus complication status: with hyp erglycemia Qualified Code(s): E11.65 - Type 2 diabetes mellitus with hype rglycemia Update 11/25: Patient received lantus and was placed on sliding scale insulin. Most recent bedside BG was 142 requiring 1 unit of coverage, prior to that, morning BG was 90. Plan above effective, continue. Qualifiers: Diabetes mellitus type: type 2 Diabetes mellitus exterminator termite insulin use: without exterminator termite use Diabetes mellitus complication status: with hyperglycemia Qualified Code(s): E11.65 - Type 2 diabetes mellitus with hyperglycemia (3) Hypertension Impression: Previously diagnosed with HTN. Poorly controlled upon admission. Received 100mg of lasix in ED which effectively decreased his BP. BP should be monitored q 4hr to ensure not severely elevated. PRN hydralazine will be available for SBP >160. Pt will most likely be discharged on ACEi for chronic maintenance. Plan: -Monitor BP q4hr -PRN Hydralazine 10mg IVP for SBP>160 Qualifiers: Hypertension type: essential hypertension Qualified Code(s): I10 - Essential (primary) hypertension Update 11/25: BP has remained WNL. Continue plan above. Qualifiers: Hypertension type: essential hypertension Qualified Code(s): I10 - Essential (primary) hypertension (4) Non compliance w medication regimen Impression: Pt reports to not have been taking his medications since his 's passing 3 years ago. Before her passing he wanted to get better, even tried changing his diet. Once his got sick his focus was on her and hasn't recovered from his depression yet. He fully understands his medications will help with his symptoms. Social work may need to be involved to assess his home status and ability to care for himself being that he has been using an office chair to get around and letting the house maintenance go. Update 11/25: Spoke with patient about his housing situation, determined there is a very real posibility that he will be homeless within 3 months; daughter is in subsidized housing, he has no income and has stopped paying the rent on his current residence. Will continue to explore options for the patient. (5) Abnormal chest xray Impression: Chest x-ray found opacities possibly indicative of PNA. However, pt's WBC is 8, he is afebrile, and has a BNP of 2118. Most likely opacities are pulmonary edema from his CHF exacerbation. Diuresis will help to clear fluid from lungs. Already received 100mg of lasix in the ED and has voided 1750ml. Will continue to monitor vitals, administer diuretics, monitor electrolytes and provide supplemental O2 as necessary to maintain sats >92% Plan: -Furosemide 40mg IVP BID -Monitor vitals q4hr -Provide supplemental O2 to maintain sats >92% -Repeat chest X-ray in AM -Repeat CBC in AM Update 11/25: Pt has remained afebrile thoughout the night, WBC wnl. He continues to receive diuresis, this morning's BNP [id number]. SOB has improved per patient report. Electrolytes remained WNL. Above plan appropriate, continue. (6) Chronic pain disorder Impression: Patient reports a previous opioid abuse in 2008 which lasted approximately 1 year. While using he was buying opioids from friends and on the streets. encouraged him to stop which he did with the use and prescription of suboxone. He has been on suboxone since 2009. Arrived to with his own script of s uboxone, meds were placed in custody of pharmacy here and will be distributed to the patient following his prescription plan. Plan: -Resume home med of suboxone Update 11/25: No change to plan above
--- NOTE | 2019-11-26 13:52 | XRAY Report ---
PROCEDURE: Eye Foreign Body INDICATIONS: NEEDS MRI AND MAY HAVE METAL IN EYES TECHNIQUE: A single view of the orbits was acquired. COMPARISON: None FINDINGS: Soft tissues: No metallic foreign bodies are visualized around the orbits. Bones: Bony structures appear unremarkable. Visualized sinuses appear clear. IMPRESSION: No metallic density foreign bodies identified in the orbits. Reviewed by: Lillian Hernandez MD, PhD on 11/26/2019 1:51 PM PDT Approved by: Lillian Hernandez MD, PhD on 11/26/2019 1:51 PM PDT Station ID: [id number]
[2019-11-26] MEDS ORDERED: GADOBUTROL 10 MMOL/10 ML VIAL ONE (15:08)
[2019-11-26] MEDS ORDERED: GADOBUTROL 10 MMOL/10 ML VIAL IVP ONE (15:32)
--- NOTE | 2019-11-26 17:25 | MRI Report ---
PROCEDURE: Toe(s) RT W/WO INDICATIONS: right great toe ulcer for 7 months CONTRAST: IV CONTRAST: Gadavist ml: 10 TECHNIQUE: Noncontrast sagittal T1 spin echo and T2 fast spin echo with fat saturation, long-axis T1 spin echo a nd T2 fast spin echo with fat saturation; short-axis T1 spin echo, proton density fast spin echo, and T2 fast spin echo with fat saturation through the forefoot. Post-contrast short axis, long axis, an d sagittal T1 spin echo with fat saturation through the forefoot. COMPARISON: None. FINDINGS: Image quality: Excellent. Bones and joints: Osseous edema is seen surrounding the first interphalangeal joint with a small join t effusion, located adjacent to the known soft tissue ulcer. Findings are suspicious for osteomyeliti s/septic arthritis. Moderate hallux valgus is seen with associated degenerative changes at the first metatarsophalangeal joint and the medial metatarsal head. There is extension of the second metatarsophalangeal joint and flexion of the PIP joint, which may be related to positioning or hammertoe deformity. Soft tissues: There is irregularity at the anteromedial aspect of the great toe compatible with the no soft tissue ulcer. No well-defined subcutaneous fluid collection is seen to suggest abscess format ion. Nonspecific subcutaneous edema is seen in the dorsum of the foot. There is fatty infiltration and jazmin ma within the intrinsic foot musculature, most likely related to chronic denervation changes. No foca l ligament or tendon tear is seen. The plantar plates are intact on sagittal images. No intermetatars al mass is seen. IMPRESSION: 1. Soft tissue ulcer at the medial aspect of the great toe with mild edema and enhancement of the os seous structures surrounding the interphalangeal joint with a small joint effusion, suspicious for os teomyelitis. No discrete soft tissue abscess is seen. Nonspecific soft tissue edema is seen in the do rsum of the forefoot. 2. Moderate hallux valgus with associated degenerative changes. Probable hammertoe deformity in the second toe. 3. Edema and fatty infiltration of the intrinsic foot musculature is most likely related to chronic denervation. Reviewed by: Joby Aragon MD on 11/26/2019 5:23 PM PDT Approved by: Joby Aragon MD on 11/26/2019 5:23 PM PDT Station ID: [id number]
[2019-11-26] MEDS: INSULIN GLARGINE 300 UNIT/3 ML PEN SUBQ SCH (21:18)
[2019-11-27] MEDS: ACETAMINOPHEN 325 MG TABLET PO PRN ×3 (03:13→17:00)
[2019-11-27 05:32] LABS: CALCIUM 8.5 mg/dL (8.5-10.3); CREATININE 1.2 mg/dL (0.6-1.2)
[2019-11-27] MEDS: INSULIN ASPART 300 UNIT/3 ML PEN SUBQ SCH ×3 (08:14→16:56)
[2019-11-27] MEDS: FUROSEMIDE 40 MG/4 ML VIAL IVP SCH (08:15)
[2019-11-27] MEDS: POTASSIUM CHLORIDE 20 MEQ TABLET PO SCH (08:16)
[2019-11-27] MEDS: ENOXAPARIN 40 MG/0.4 ML SYRINGE SUBQ SCH (08:16)
[2019-11-27] MEDS: SODIUM CHLORIDE FLUSH 0.9% 10 ML SYRINGE IVP SCH ×2 (08:16→16:58)
[2019-11-27 09:44] LABS: HEMOGLOBIN A1c% 9.9 % (4.27-6.07)
[2019-11-27] MEDS ORDERED: SPIRONOLACTONE 25 MG TABLET PO SCH (11:00)
[2019-11-27] MEDS ORDERED: lisinopriL 5 MG TABLET PO SCH (11:00)
[2019-11-27] MEDS ORDERED: METOPROLOL SUCCINATE 25 MG TABLET PO SCH (11:00)
--- NOTE | 2019-11-27 11:04 | Discharge Plan ---
Discharge Plan Problem Reviewed?: Yes Disposition: Home, Self Care Condition: Stable Prescriptions: Spironolactone [Aldactone] 25 mg PO DAILY #30 tablet metFORMIN [Glucophage] 500 mg PO BIDWM #60 tablet Metoprolol Succinate [Toprol Xl] 25 mg PO BID #60 tablet lisinopriL [Zestril] 2.5 mg PO DAILY #30 tablet Diet: Cardiac (2 gram sodium diet, diabetic diet) Activity Restrictions: Activity as Tolerated Shower Restrictions: No Driving Restrictions: No Weight Bearing: Full Weight Health Concerns: Heart failure with reduced Ejection Fraction (under 20% on preliminary read) due to heart valve (mitral valve) problems * need to take diuretic (lasix) daily *weigh self daily and document your weight; discharge weight is 102.kg (not yet your dry weight) If you are light headed in the morning before taking your lasix, contact your provider before taking medications, if possible weigh yourself (if you diurese (urinate fluid) so well that you become dehydrated, the right heart may not move enough fluid forward to the left side of your heart, ) *Establish a "dry weight" * contact your provider if your weight is increasing (fluid retention) especially by more than 3 lbs in 2-3 days, *Need to resume heart failure medications (lisinopril, long acting metoprolol (metoprolol succinate), spironolactone, and continue Lasix (you got a dose of IV lasix in the afternoon here so ok to start the pill form again 11/27 am) * Follow up is very important as the lisinopril dose and metoprolol doses will need titrating to get to optimal dose for your heart Laboratory follow up on 11/28 to recheck kidney function and potassium on the resumed medications; come to hospital lab Results will be called to Constantino Martínez NP Follow up in heart failure clinic (a referral was made with discharge) Cardiology follow up (will need PCP referral); Possible valve replacement Your oxygen level when walking is in the mid 90's on room air, (meaning you do not need oxygen therapy) the shortness of breath you feel is because your heart muscle is weak. EACH of the medications you are prescribed for heart failure is VERY important and as noted still needed dose adjusting on follow up Diabetes; you havent been taking your diabetic medication A1C is 9.9 Resume your metformin, PCP follow up to discuss additional medication, there are many new medications Diabetic Foot wounds likley osteomyelitis of the mid portion of the great toe joint. You note that you have had this ulcer a long time, and that your doctor in the past recommended surgery/ possible amputation This is likely a bone infection. You do not have a fever, At this time we are not starting antibiotic, however, it is very important that you get follow up for this. The definitive treatment is surgery. Ideally your heart issues before surgery are stabilized before surgery (although surgical intervention should likely be able to be done with local anesthesia rather than general If you have a fever or chills contact your provider Care Goals: Heart failure is currently "decompensated" Goal; compensated heart failure (on optimal medication doses, improved heart rate, symptoms, stable weight/heart management of fluid) Establish dry weight (discharge weight is 102 kg, that is NOT your dry weight) Diabetes not controlled A1C 9.9 Goal a1C under 7 if tolerated with no low sugars Goal ; have foot wounds addressed Additional Instructions or Follow Up instructions: Follow up with Constantino Martínez NP [facility] [phone] You are scheduled for a hospitalization follow up on December 03 at 1230 with Constantino Martínez, Also you are scheduled for a new patient appointment on January 28 at 1100 with Constantino Martínez. Bring photo identification and copy of insurance card to appointment. Follow-Up Care: [facility] - Cardiac (Valvular Heart Failure, EF < 20 on preliminary read, hasnt been taking medicaions) No Smoking: If you smoke, Please STOP! Call for help. Follow-up with: CONSTANTINO MARTÍNEZ, MSN, EXPLOSIVE [employer]CE HAND[employer]ER [Credentialed Staff Provider] - 1 Week (Admitted with decompensated CHF, EF < 20%, on initial EF, mitral valve andtricuspid regurg. self dc'd all meds, resuming toprol, acei, spironolactone, continuing lasix, needs dry weight established, cardiology f/u (? valve replacement) DM foot wound, osteo,(patient reports was told long ago he needed amputation needs ortho follow up vs chronic antibiotic DM; A1C 9.9; resumed metformin, miguely needs added agent discussion)
[2019-11-27] MEDS ORDERED: DOCUSATE SODIUM 250 MG CAPSULE PO SCH (12:00)
[2019-11-27] MEDS: SUBOXONE 8 MG/2 MG FILM SL SCH (12:07)
--- NOTE | 2019-11-27 13:08 | DISCHARGE SUMMARY ---
Discharge Summary Admit Date: 11/26/19 Discharge Date: 11/27/19 Discharging Provider: VIK López Primary Care Provider: Nayla Alexander NP (new provider) Code Status: Attempt Resuscitation Condition at Discharge: Stable Discharge Disposition: Home, Self Care Discharge Facility [facility]: [facility] - DIAGNOSES Admission Diagnoses: 1)Acute exacerbation of CHF 2) uncontrolled DM2 3) Hypertension 4) Noncompliance with medication regimen 5) abnormal chest X ray 6 Chronic pain Discharge Diagnoses with Status of Each Condition: 1)Acute on chronic Heart failure with reduced EF (HFrEF) stable improved symptomatically needs follow up to optimize CHF regimen 2) uncontrolled DM2 A1C 9.9; was not taking his prescribed metformin will resume metformin and meet with new PCP to discuss possible addition to regimen 3) Hypertension controlled outpatient follow up to optimize 4) likley chronic osteomyelities R great toe afebrile, no leukocytosis, CRP 8.9 outpatient follow up with ortho / consider surgical management vs chronic suppression after culture 5)Noncompliance with medication regimen patient plans to follow up with new PCP and regain health 6) abnormal chest X ray consistent with CHF exacerbation (#1) - HPI History of Present Illness: 54 yo male admitted from home via EMS for severe SOB. He has a PMH significant for CHF and [facility] but self discontinued all medications ~ 3 years ago and says he was given a "clean bill of health" by cardiology, also reports stopping medications due to stress after wifes . He was recently seen in [place] for similar symptoms of SOB and was treated with diuretics and discharged with Lasix rx. The patient reports feeling worse with the diuretic, with progressively worsening edema, progressiing from feet to abdominal wall. He has recently missed his doses of Lasix yesterday and the day prior. SOB has been worsening over the past week along with a new a new non- productive cough over the past two weeks and orthopnea. he has been sleeping in a lounge chair upright. On the day of presentation, dyspnea was so severe he was unable to walk more than a few steps, he also noted he was nauseated, diaphoretic, and felt chest discomfort and palpitations. He reports feeling numbness and tremulousness in his hands this morning prompting him to call EMS. The patient notes having a poor appetite lately and an increase amount of daily water intake, estimating 2-3 liters daily. In the ED presentation VS notable for hypertension 145/105, HR 120, Sa02 98% on oxygen BNP was > 2100, Initial troponin 27 with repeat not significantly eleat ed at 32. EKG without acute ischemic sym;ptoms, Chest x ray with Bilateral intrstial pulmonary opacity suggestive of atypical pneumonia vs edema. and bilatral effusions. All consistent with acute decompensated CHF. Patient responded to initial dose of IV lasix 40 wtih 1 liter . and was admitted for diuresis and medical management PE significant for basilar crackles in bilateral lungs, R>L, irregular heart sounds, +3 pitting edema in BLE, +1-2 edema in BUE, hands and feet extremely cold to the touch, ruddiness in hands, and numbness with dryness in feet. In - CONSULTS | PROCEDURES Consultations: none Procedures: none - HOSPITAL COURSE Hospital Course: 1) Acute decompensated CHF with reduced EF troponins flat Echo 11/26 ; severely reduced EF 20-25% with global hypokinesis, mild to moderate mitral regurg, and severely reduced RV function mild-mod pHTN w/ RVSP 46 Exacerbation likely r/t noncompliance with regimen, uncontrolled BP and mitral regurg Patient clinically improved with diuresis, not yet at dry weight (Dry weight to be determined) He was diuresed of ~ 10 x liters over ~ 1.5 days with subjective and objective symptomatic and clincial improvement/ Ambulatory oxygen sat check 11/26; remained in mid 90's, no oxygen requirement with ambulation (although still subjectively winded with EF of 20-25) started 25 mg BID metoprolol succinate started low dose ACEI started spironolactone beta teresa and ACEI need outpatient titration for medical optimization/goal directed medical therapy as per CHF guidelines He will resume his home dose of lasix (he had been considering increasing dose at home as he notes he does not have impressive diuresis) and received an additional 40 mg IV dose several hours before discharge. Plan; -titrate ACEI, metoprolol for optimal dose/GDMT, - consider repeat BNP when euvolemic to determine euvolemic BNP (BNP 1578 at admit, 1365 on discharge) and establish "dry weight" - consider cardiology consultation - BMP check scheduled for 11/28 to check K, renal function on ACei, avila and lasix ; Results will be called to Nayla Alexander -CHF clinic (ordered here) -instructed on daily weights and low sodium diet/ Discharge weight 102.kg 2) osteomyelitis R great toe, possibly chronic Patient has an ulcer medial aspect of R great toe (also has hallux deformity) for over 7 months with no clear abscess , On MRI toe (see below), there is mild edema nad enhancement of osseous structtures surrounding the Interphalangeal joint with a small joint effusion suspicious for osteomyelitis. No fever or chills, CRP 8.9 He reports he was advised months ago that amputation advised Not started acutely on antibiotics as would ideally have surgical culture if he does pursue surgery Plan; outpatient orthopedic consult. He as aware this should be addressed soon, and fever warrants medical attention 3) uncontrolled DM A1C 9.9 Patient self d/c'd metformin along with his other drugs 3 yrs ago resuming metformin Establishing new PCP (Nayla Alexander) ; likely needs addition of other agent 4) Medication noncompliance; patient verbalizes understanding of need to continue medications and wants to achieve better health Discharge More than 60 minutes spent with patient exam, education, evaluating for oxygen requirement, ensuring understanding of instructions, discussing w/ social work and d/c planning follow up for his medical problems - ALLERGIES Allergies/Adverse Reactions: Allergies Allergy/AdvReac Type Severity Reaction Status Date / Time Penicillins Allergy Unknown Verified 11/25/19 13:33 - MEDICATIONS Home Medications: Ambulatory Orders Medication Instructions Recorded Confirmed Buprenorphine HCl/Naloxone HCl 1 film SL DAILY 02/21/15 11/26/19 [Suboxone 8 mg-2 mg Sl Film] Furosemide [Lasix] 40 mg PO DAILY 11/26/19 11/26/19 Acetaminophen [Tylenol] 650 mg PO Q4HR PRN tablet 11/27/19 Metoprolol Succinate [Toprol Xl] 25 mg PO BID #60 tablet 11/27/19 Spironolactone [Aldactone] 25 mg PO DAILY #30 tablet 11/27/19 lisinopriL [Zestril] 2.5 mg PO DAILY #30 tablet 11/27/19 metFORMIN [Glucophage] 500 mg PO BIDWM #60 tablet 11/27/19 - PHYSICAL EXAM AT DISCHARGE General Appearance: positive: No acute distress, Alert, Other (sitting up at bedside, balding, looks older than actual age) Eyes Bilateral: positive: PERRL, EOMI Neck: negative: No JVD (JVD to ~ 3 cm below jaw), Stiff neck Respiratory: positive: Breath sounds nml (dyspneic with ambulation but Sa02 sat mid 90's). negative: Wheezes, Rales, Rhonchi Cardiovascular: positive: Regular rate & rhythm Peripheral Pulses: positive: 2+ Abdomen: positive: Nml bowel sounds, No distention, Other (+ mild HJR). negative: Tenderness Skin: positive: Warm, Dry, Other (R great toe with dressing, photo in record 1cm.0.5 cm ulcer, w/ scant purulent drailnage, small bilister R inner ankle, 2 mm scab L middle toe, no drainage. photos in EMR) Extremities: positive: Pedal edema (2-3 + pitting edema bilateral legs thighs to feet. no weeping) Neurologic/Psychiatric: positive: Oriented x3, Motor nml, Sensation nml, Mood/affect nml - LABS Result Diagrams: 11/26/19 05:25 11/27/19 05:04 - DIAGNOSTIC IMAGING Diagnostic Imaging Results: Other Diagnostic Imaging Results Comments: Echocardiogram (preliminary 11/26) Mild to mod LVE, overall LV systolic function severely globally impaired; EF 20- 25% Mild RVE, RV systoilc function severely impaired , Aortic Valve, No , No regurg Mitral Valve, mild to moderate mitral regurgitation 46 mmHg RVSP CXR Bilat interstitial pulmonary opacity c/w atypical pneumoina vs edema Bibasilar pneumonia w/ small bilat parapneumonic effusions Thoraic Spine 2 view; NOsteopenic, poorly visualized upper and mid T spine verebral bodise due to osteopenia, no definate fractues nobony lesons L spine; Multilevel DGD, Multilevel facet arthorpaty, No fraute norossious lesion MRI R great toe Soft tissue ulcer medial aspect Great toe R w mild edema and enhancement of ossiouis structures surrounding interphalangeal joint w/ small j oing effusion, suspicious for osteo. No discrete soft tissue abscess - FOLLOW UP Follow Up: Patient has hospital follow up appt with Nayla Alexander Rehabilitation Services Counselor on december 03, and new patient appointment january 28 at 1100 with Nayla Alexander As above,, patient has BMP ordered and has paperwork for BMP on 11/28 - TIME SPENT Time Spent in Discharge (Minutes): 60
[2019-11-27] MEDS ORDERED: FUROSEMIDE 40 MG/4 ML VIAL IVP ONE (14:00)
[2019-11-27] MEDS ORDERED: MULTIVITAMIN W/MINERALS TABLET PO SCH (16:00)
[2019-11-27] MEDS ORDERED: DOXORUBICIN IVP ONE (20:25)
[2019-11-27 20:51] VITALS: BP 127/84
== END 2019-11-27 20:25 | disposition home or self-care (01) ==
LOC: EDUNIT# → ED 13:28 → MS2 17:04
PROVIDERS: ADMIT Specialist; ATTEND Nurse Practitioner
DX: I50.23 Acute on chronic systolic (congestive) heart failure (principal); I11.0 Hypertensive heart disease with heart failure; E11.65 Type 2 diabetes mellitus with hyperglycemia; I34.0 Nonrheumatic mitral (valve) insufficiency; I27.20 Pulmonary hypertension, unspecified; G89.29 Other chronic pain; M47.816 Spondylosis without myelopathy or radiculopathy, lumbar region; F17.210 Nicotine dependence, cigarettes, uncomplicated; L97.519 Non-pressure chronic ulcer of other part of right foot with unspecified severity; M20.5X1 Other deformities of toe(s) (acquired), right foot; M25.474 Effusion, right foot; F17.200 Nicotine dependence, unspecified, uncomplicated; E78.00 Pure hypercholesterolemia, unspecified; T46.1X6A Underdosing of calcium-channel blockers, initial encounter; T38.3X6A Underdosing of insulin and oral hypoglycemic [antidiabetic] drugs, initial encounter; Z91.128 Patient's intentional underdosing of medication regimen for other reason; Z79.84 Long term (current) use of oral hypoglycemic drugs; Z74.09 Other reduced mobility; Z79.891 Long term (current) use of opiate analgesic; M51.36 Other intervertebral disc degeneration, lumbar region
CPT/HCPCS: 36415; 70030; 71045; 72070; 72114; 73720; 80048; 80053; 83036; 83690; 83735; 83880; 84484; 85025; 85610; 86141; 93005; 93306; 94761; 96365; 96367; 96372; 96375; 96376; 99285; A9270; A9585; G0378; J1650; J1815; J1940

== ENCOUNTER 2019-11-29 10:44 | Outpatient (CLI) | payer MEDICAID ==
[2019-11-29 11:03] LABS: CALCIUM 9.1 mg/dL (8.5-10.3); CREATININE 1.1 mg/dL (0.6-1.2)
== END 2019-11-29 10:45 | disposition home or self-care (01) ==
LOC: LAB 10:44
PROVIDERS: ATTEND Nurse Practitioner
DX: I50.41 Acute combined systolic (congestive) and diastolic (congestive) heart failure (principal)
CPT/HCPCS: 36415; 80048

== ENCOUNTER 2019-11-30 09:04 | Outpatient (CLI) | payer MEDICAID | END 2019-11-30 09:05 | disposition critical access hospital (66) | LOC: EMS 09:04 | PROVIDERS: ATTEND Surgery | DX: R06.02 Shortness of breath (principal); R11.2 Nausea with vomiting, unspecified; R05 Cough | CPT/HCPCS: A0425; A0429; A0999 ==

== ENCOUNTER 2019-11-30 09:24 | Emergency (ER) | payer MEDICAID ==
[2019-11-30 10:09] LABS: BASOPHILS # (AUTO) 0.1 10^3/uL (0.0-0.1); BASOPHILS % (AUTO) 0.7 %; EOSINOPHILS % (AUTO) 0.5 %; HGB - HEMOGLOBIN 15.6 g/dL (14.0-18.0); LYMPHOCYTES # (AUTO) 1.1 10^3/uL (1.5-3.5); LYMPHOCYTES % (AUTO) 13.8 %; MEAN CORPUSCULAR HEMOGLOBIN 24.5 pg (27.0-31.0); MEAN CORPUSCULAR HGB CONC 31.1 g/dL (32.0-36.0); MEAN CORPUSCULAR VOLUME 78.9 fL (80.0-94.0); MEAN PLATELET VOLUME 11.7 fL (7.4-11.4); MONOCYTES # (AUTO) 0.8 10^3/uL (0.0-1.0); MONOCYTES % (AUTO) 9.4 %; NEUTROPHILS # (AUTO) 6.2 10^3/uL (1.5-6.6); NEUTROPHILS % (AUTO) 75.2 %; PLT - PLATELET COUNT 255 10^3/uL (130-450); RED BLOOD COUNT 6.36 10^6/uL (4.70-6.10); RED CELL DISTRIBUTION WIDTH 15.9 % (12.0-15.0); WHITE BLOOD COUNT 8.2 x10^3/uL (4.8-10.8)
[2019-11-30 10:22] LABS: ALBUMIN 3.6 g/dL (3.2-5.5); BILIRUBIN,TOTAL 0.8 mg/dL (0.2-1.0); CALCIUM 9.2 mg/dL (8.5-10.3); CREATININE 1.1 mg/dL (0.6-1.2); TOTAL PROTEIN 7.1 g/dL (6.7-8.2)
[2019-11-30 10:31] LABS: INR 1.7 (0.8-1.2); PT - PROTHROMBIN TIME 18.3 secs (9.9-12.6)
--- NOTE | 2019-11-30 10:45 | XRAY Report ---
PROCEDURE: Chest 1 View X-Ray INDICATIONS: chest pain TECHNIQUE: One view of the chest was acquired. COMPARISON: 11/25/2019 FINDINGS: Surgical changes and devices: EKG leads project over the chest. Lungs and pleura: Left-sided pleural effusion seen previously has slightly improved. Right-sided pleu ral effusion with overlying airspace consolidation and atelectasis has not significantly changed. Inc reased interstitial markings on both lungs, similar to prior study. Mediastinum: Mediastinal contours appear normal. Heart size remains enlarged. Bones and chest wall: No suspicious bony lesions. Overlying soft tissues appear unremarkable. IMPRESSION: Slight improvement in left-sided pleural effusion. Otherwise no significant interval change in right pleural effusion and bilateral interstitial opacities. Findings remain consistent with cardiogenic pu lmonary edema in the appropriate clinical setting. Reviewed by: Preston Denise MD on 11/30/2019 10:44 AM PDT Approved by: Preston Denise MD on 11/30/2019 10:44 AM PDT Station ID: [id number]
[2019-11-30] MEDS ORDERED: FUROSEMIDE 40 MG/4 ML VIAL IVP STA (11:24)
--- NOTE | 2019-11-30 12:34 | ED Physician Documentation ---
History of Present Illness - Stated complaint Stated Complaint: SOA - Chief complaint Chief Complaint: General - History obtained from History obtained from: Patient - Additonal information Additional information: Patient returns to the emergency department complaining of "my Lasix is not working". Patient was just admitted to the hospital about 5 days ago for congestive heart failure exacerbation after medication noncompliance. Patient was placed on Lasix, which she states he has been taking until this morning and states that while in the hospital, he diuresed well and felt that his condition was improving. Patient states that he has been feeling short of breath again this morning, although he is feeling better right now. He states that he has noticed over the last several days that does not seem like his furosemide is resulting in much urination. He is not sure if he is just dehydrated or if the medication is no longer effective for him. No chest pain. No fevers or chills. No cough. No other complaints at this time. Patient states his lower extremities do not seem any more swollen than they normally do. Review of Systems Ten Systems: 10 systems reviewed and negative Constitutional: reports: Reviewed and negative Eyes: reports: Reviewed and negative Ears: reports: Reviewed and negative Nose: reports: Reviewed and negative Throat: reports: Reviewed and negative Cardiac: reports: Reviewed and negative Respiratory: reports: Dyspnea GI: reports: Reviewed and negative : reports: Reviewed and negative Skin: reports: Reviewed and negative Musculoskeletal: reports: Extremity swelling Neurologic: reports: Reviewed and negative Psychiatric: reports: Reviewed and negative Endocrine: reports: Reviewed and negative Immunocompromised: reports: Reviewed and negative PD PAST MEDICAL HISTORY - Past Medical History Cardiovascular: Congestive heart failure, Hypertension Respiratory: None Neuro: None Endocrine/Autoimmune: Type 2 diabetes GI: GERD : None HEENT: None Psych: None Musculoskeletal: Chronic back pain Derm: None - Past Surgical History Past Surgical History: Yes Ortho: Other Cardiovascular: Cardiac catheterization - Present Medications Home Medications: Ambulatory Orders Medication Instructions Recorded Confirmed Buprenorphine HCl/Naloxone HCl 1 film SL DAILY 02/21/15 11/26/19 [Suboxone 8 mg-2 mg Sl Film] Furosemide [Lasix] 40 mg PO DAILY 11/26/19 11/26/19 Acetaminophen [Tylenol] 650 mg PO Q4HR PRN tablet 11/27/19 Metoprolol Succinate [Toprol Xl] 25 mg PO BID #60 tablet 11/27/19 Spironolactone [Aldactone] 25 mg PO DAILY #30 tablet 11/27/19 lisinopriL [Zestril] 2.5 mg PO DAILY #30 tablet 11/27/19 metFORMIN [Glucophage] 500 mg PO BIDWM #60 tablet 11/27/19 Furosemide 40 mg PO BID 30 Days #60 tablet 11/30/19 - Allergies Allergies/Adverse Reactions: Allergies Allergy/AdvReac Type Severity Reaction Status Date / Time Penicillins Allergy Unknown Verified 11/25/19 13:33 - Social History Does the pt smoke?: Yes Smoking Status: Current every day smoker Does the pt drink ETOH?: No Does the pt have substance abuse?: Yes - Immunizations Immunizations are current?: No Immunizations: TDAP >10years/unknown - POLST Patient has POLST: No PD ED PE NORMAL - Vitals Vital signs reviewed: Yes - General General: Alert and oriented X 3, No acute distress, Well developed/nourished - HEENT HEENT: Atraumatic, PERRL, EOMI, Moist mucous membranes - Neck Neck: Supple, no meningeal sign - Cardiac Cardiac: RRR, No murmur, Strong equal pulses - Respiratory Respiratory: No respiratory distress, Clear bilaterally - Abdomen Abdomen: Soft, Non tender, Non distended - Derm Derm: Normal color, Warm and dry, No rash - Extremities Extremities: No deformity, Other (2+ pitting edema bilaterally) - Neuro Neuro: Alert and oriented X 3, stock order lister 2-12 intact, No motor deficit, No sensory deficit, Normal speech - Psych Psych: Normal mood, Normal affect Results - Vitals Vitals: Oxygen O2 Source Room air - Labs Labs: Laboratory Tests 11/30/19 11/30/19 11/30/19 09:55 09:55 09:55 WBC 8.2 RBC 6.36 H Hgb 15.6 Hct 50.2 MCV 78.9 L MCH 24.5 L MCHC 31.1 L RDW 15.9 H Plt Count 255 MPV 11.7 H Neut # (Auto) 6.2 Lymph # (Auto) 1.1 L Meagher # (Auto) 0.8 Eos # (Auto) 0.0 Baso # (Auto) 0.1 Absolute Nucleated RBC 0.00 Nucleated RBC % 0.0 PT INR Sodium 136 Potassium 5.5 H Chloride 97 L Carbon Dioxide 28 Anion Gap 11.0 BUN 31 H Creatinine 1.1 Estimated GFR (MDRD) 69 L Glucose 220 H Calcium 9.2 Total Bilirubin 0.8 AST 36 ALT 33 Alkaline Phosphatase 112 B-Natriuretic Peptide 2086 H Total Protein 7.1 Albumin 3.6 Globulin 3.5 Albumin/Globulin Ratio 1.0 Lipase 28 11/30/19 10:21 WBC RBC Hgb Hct MCV MCH MCHC RDW Plt Count MPV Neut # (Auto) Lymph # (Auto) Meagher # (Auto) Eos # (Auto) Baso # (Auto) Absolute Nucleated RBC Nucleated RBC % PT 18.3 H INR 1.7 H Sodium Potassium Chloride Carbon Dioxide Anion Gap BUN Creatinine Estimated GFR (MDRD) Glucose Calcium Total Bilirubin AST ALT Alkaline Phosphatase B-Natriuretic Peptide Total Protein Albumin Globulin Albumin/Globulin Ratio Lipase - Rads (name of study) CXR Radiology: Final report received, EMP read indepedently, See rad report (Mild interval improvement) PD MEDICAL DECISION MAKING - ED course Complexity details: reviewed old records, reviewed results, re-evaluated patient, considered differential, d/w patient ED course: Patient was worked up with labs, EKG, and chest x-ray. Chest x-ray and BNP both showed mild improvement since patient's last visit to the emergency department.The patient did not appear dyspneic here in the emergency department, and when awake, demonstrated an O2 saturation in the high 90's. I d/w pt that perhaps 20mg/day is not enough Lasix, and that we should double the dose. The pt has a follow-up appt with his doctor in 4 days, and this will be a good opportunity to revisit how he is feeling. Pt was agreeable to the plan. He was given a dose of Lasix here in the ED, as well. We have discussed the usual indications for return. Departure - Departure Disposition: 01 Home, Self Care Clinical Impression: Congestive heart failure Condition: Stable Instructions: ED CHF General Prescriptions: Furosemide 40 mg PO BID 30 Days #60 tablet Comments: Your congestive heart failure lab and your x-ray are slightly improved compared with when you were seen in the emergency department on Tuesday. Most likely, he will need to be on a little bit higher dose of your furosemide, and as such, we will double it from 20 mg to 40 mg daily. You may take this over the weekend and discuss your progress with your doctor when you are seen on the first. Discharge Date/Time: 11/30/19 13:30
[2019-11-30] MEDS ORDERED: ONDANSETRON 4 MG/2 ML VIAL IVP STA (12:45)
[2019-11-30 13:13] VITALS: BP 134/94
== END 2019-11-30 13:30 | disposition home or self-care (01) ==
LOC: EDUNIT# → ED 09:24
DX: I11.0 Hypertensive heart disease with heart failure (principal); I50.9 Heart failure, unspecified; E11.9 Type 2 diabetes mellitus without complications; F17.200 Nicotine dependence, unspecified, uncomplicated; Z79.84 Long term (current) use of oral hypoglycemic drugs
CPT/HCPCS: 36415; 71045; 80053; 83690; 83880; 85025; 85610; 96374; 96375; 99285

== ENCOUNTER 2019-12-06 08:00 | Outpatient (CLI) | payer MEDICAID ==
[2019-12-06 18:21] LABS: BASOPHILS # (AUTO) 0.1 10^3/uL (0.0-0.1); EOSINOPHILS # (AUTO) 0.2 10^3/uL (0.0-0.7); EOSINOPHILS % (AUTO) 3.3 %; HGB - HEMOGLOBIN 13.6 g/dL (14.0-18.0); LYMPHOCYTES % (AUTO) 26.9 %; MEAN CORPUSCULAR HGB CONC 29.6 g/dL (32.0-36.0); MEAN CORPUSCULAR VOLUME 81.1 fL (80.0-94.0); MEAN PLATELET VOLUME 11.5 fL (7.4-11.4); MONOCYTES % (AUTO) 13.8 %; NEUTROPHILS % (AUTO) 54.7 %; PLT - PLATELET COUNT 231 10^3/uL (130-450); RED BLOOD COUNT 5.67 10^6/uL (4.70-6.10); RED CELL DISTRIBUTION WIDTH 15.4 % (12.0-15.0); WHITE BLOOD COUNT 7.2 x10^3/uL (4.8-10.8)
[2019-12-06 18:39] LABS: ALBUMIN 3.7 g/dL (3.2-5.5); ALBUMIN/GLOBULIN RATIO 1.1 (1.0-2.2); ALKALINE PHOSPHATASE 97 IU/L (42-121); ALT ALANINE AMINOTRANSFERASE 21 IU/L (10-60); AST ASPARTATE AMINOTRANSFERASE 29 IU/L (10-42); BILIRUBIN,TOTAL 0.7 mg/dL (0.2-1.0); BUN - BLOOD UREA NITROGEN 20 mg/dL (6-20); CALCIUM 8.9 mg/dL (8.5-10.3); CARBON DIOXIDE - CO2 29 mmol/L (21-32); CHLORIDE 96 mmol/L (101-111); CHOL/HDL RATIO 3.3 (<5.0); CHOLESTEROL 119 mg/dL; CREATININE 1.1 mg/dL (0.6-1.2); GLUCOSE 123 mg/dL (70-100); HDL CHOLESTEROL 36 mg/dL; LDL CHOLESTEROL,CALCULATED 68 mg/dL; LDL/HDL RATIO 1.9 (<3.6); SODIUM 137 mmol/L (135-145); TOTAL PROTEIN 7.1 g/dL (6.7-8.2); VLDL CHOLESTEROL 15 mg/dL
[2019-12-06 20:34] LABS: HEMOGLOBIN A1c% 9.9 % (4.27-6.07)
== END 2019-12-06 23:59 | disposition home or self-care (01) ==
LOC: LAB.WCP 08:00
PROVIDERS: ATTEND Nurse Practitioner Family
DX: E11.9 Type 2 diabetes mellitus without complications (principal); I11.0 Hypertensive heart disease with heart failure; I50.9 Heart failure, unspecified
CPT/HCPCS: 36415; 80053; 80061; 83036; 83721; 83880; 84443; 85025

== ENCOUNTER 2020-03-10 08:47 | Outpatient (CLI) | payer MEDICAID ==
[2020-03-10 12:20] LABS: CALCIUM 9.7 mg/dL (8.5-10.3); CREATININE 0.8 mg/dL (0.6-1.2)
[2020-03-10 13:04] LABS: HEMOGLOBIN A1c% 8.6 % (4.27-6.07)
== END 2020-03-10 23:59 | disposition home or self-care (01) ==
LOC: LAB.WCP 08:47
PROVIDERS: ATTEND Nurse Practitioner Family
DX: E11.9 Type 2 diabetes mellitus without complications (principal)
CPT/HCPCS: 36415; 80048; 83036

== ENCOUNTER 2020-10-09 08:00 | Outpatient (CLI) | payer MEDICAID ==
[2020-10-09 13:10] LABS: BASOPHILS # (AUTO) 0.1 10^3/uL (0.0-0.1); BASOPHILS % (AUTO) 1.1 %; EOSINOPHILS # (AUTO) 0.2 10^3/uL (0.0-0.7); EOSINOPHILS % (AUTO) 2.5 %; HCT - HEMATOCRIT 48.5 % (42.0-52.0); LYMPHOCYTES # (AUTO) 2.2 10^3/uL (1.5-3.5); LYMPHOCYTES % (AUTO) 26.4 %; MEAN CORPUSCULAR VOLUME 84.8 fL (80.0-94.0); MEAN PLATELET VOLUME 10.6 fL (7.4-11.4); MONOCYTES % (AUTO) 11.2 %; NEUTROPHILS % (AUTO) 58.6 %; PLT - PLATELET COUNT 268 10^3/uL (130-450); RED BLOOD COUNT 5.72 10^6/uL (4.70-6.10); WHITE BLOOD COUNT 8.5 x10^3/uL (4.8-10.8)
[2020-10-09 13:39] LABS: ESTIMATED AVERAGE GLUCOSE 272 mg/dL (70-100); HEMOGLOBIN A1c% 11.1 % (4.27-6.07)
[2020-10-09 14:08] LABS: ALBUMIN 4.5 g/dL (3.2-5.5); ALBUMIN/GLOBULIN RATIO 1.3 (1.0-2.2); ALKALINE PHOSPHATASE 94 IU/L (42-121); ALT ALANINE AMINOTRANSFERASE 22 IU/L (10-60); AST ASPARTATE AMINOTRANSFERASE 17 IU/L (10-42); BILIRUBIN,TOTAL 0.6 mg/dL (0.2-1.0); BUN - BLOOD UREA NITROGEN 16 mg/dL (6-20); CALCIUM 9.7 mg/dL (8.5-10.3); CARBON DIOXIDE - CO2 31 mmol/L (21-32); CHLORIDE 93 mmol/L (101-111); CHOL/HDL RATIO 7.2 (<5.0); CHOLESTEROL 187 mg/dL; GFR - MDRD 77 (>89); GLUCOSE 357 mg/dL (70-100); HDL CHOLESTEROL 26 mg/dL; POTASSIUM 4.7 mmol/L (3.5-5.0); SODIUM 135 mmol/L (135-145); TOTAL PROTEIN 8.1 g/dL (6.7-8.2); TRIGLYCERIDES 682 mg/dL
[2020-10-09 14:20] LABS: CREATININE,URINE 120.2 mg/dL; MICROALBUMIN,URINE 8.9 mg/dL (0-300.0)
[2020-10-09 15:57] LABS: LDL CHOLESTEROL,DIRECT 58 mg/dL; LDLD/HDL RATIO 2.2 (<3.6)
== END 2020-10-09 23:59 | disposition home or self-care (01) ==
LOC: LAB.WCP 08:00
PROVIDERS: ATTEND Family Medicine
DX: E11.9 Type 2 diabetes mellitus without complications (principal)
CPT/HCPCS: 36415; 80053; 80061; 82043; 82570; 83036; 83721; 85025

== ENCOUNTER 2022-05-22 17:09 | Emergency (ER) | payer MEDICAID ==
[2022-05-22 17:41] VITALS: BP 156/90
[2022-05-22] MEDS ORDERED: cephALEXin 250 MG CAPSULE PO STA (17:42)
[2022-05-22] MEDS ORDERED: SULFAMETH/TRIMETH DS 800/160 MG TABLET PO STA (17:42)
--- NOTE | 2022-05-22 17:44 | ED Physician Documentation ---
History of Present Illness - Stated complaint Stated Complaint: TOOTH PX - Chief complaint Chief Complaint: Heent - History obtained from History obtained from: Patient - Additonal information Additional information: 57-year-old gentleman with about 3 days worth of right-sided facial pain and swelling. No fevers. He wonders if it is a dental abscess. No history of MRSA or staph. PD PAST MEDICAL HISTORY - Past Medical History Cardiovascular: Congestive heart failure, Hypertension Respiratory: None Neuro: None Endocrine/Autoimmune: Type 2 diabetes GI: GERD : None HEENT: None Psych: None Musculoskeletal: Chronic back pain Derm: None - Past Surgical History Past Surgical History: Yes Ortho: Other Cardiovascular: Cardiac catheterization - Present Medications Home Medications: Ambulatory Orders Medication Instructions Recorded Confirmed Buprenorphine HCl/Naloxone HCl 1 film SL DAILY 02/21/15 11/26/19 [Suboxone 8 mg-2 mg Sl Film] Furosemide [Lasix] 40 mg PO DAILY 11/26/19 11/26/19 Acetaminophen [Tylenol] 650 mg PO Q4HR PRN tablet 11/27/19 Metoprolol Succinate [Toprol Xl] 25 mg PO BID #60 tablet 11/27/19 Spironolactone [Aldactone] 25 mg PO DAILY #30 tablet 11/27/19 lisinopriL [Zestril] 2.5 mg PO DAILY #30 tablet 11/27/19 metFORMIN [Glucophage] 500 mg PO BIDWM #60 tablet 11/27/19 Furosemide 40 mg PO BID 30 Days #60 tablet 11/30/19 Sulfamethox/Trimeth 800/160 1 each PO BID #14 tablet 05/22/22 [Bactrim Ds 800/160] cephALEXin [Keflex] 500 mg PO Q6H #28 cap 05/22/22 - Allergies Allergies/Adverse Reactions: Allergies Allergy/AdvReac Type Severity Reaction Status Date / Time Penicillins Allergy Unknown Verified 05/22/22 17:29 - Social History Does the pt smoke?: Yes Smoking Status: Current every day smoker Does the pt drink ETOH?: No Does the pt have substance abuse?: Yes - Immunizations Immunizations are current?: No Immunizations: TDAP >10years/unknown - POLST Patient has POLST: No PD ED PE NORMAL - Vitals Vital signs reviewed: Yes - General General: Alert and oriented X 3, No acute distress - HEENT HEENT: Other (There is a staphylococcal appearing skin infection consistent with impetigo with facial swelling emanating over the TMJ. Bedside ultrasound does not show a fluid collection. He is all but a dentulous and there is no upper tooth infection or any upper teeth at all.) - Neck Neck: Supple, no meningeal sign, No bony TTP - Neuro Neuro: Alert and oriented X 3, Normal speech Results - Vitals Vitals: Vital Signs - 24 hr 05/22/22 17:25 Temperature 36.5 C Heart Rate 120 H Respiratory 20 Rate Blood Pressure 156/90 H O2 Saturation 96 Oxygen O2 Source Room air PD Medical Decision Making - ED course ED course: He wondered if he had a dental infection but is actually a skin source. There is no evidence of abscess at this time but discussed with him that these often will develop an abscess even if 1 is not there on the index visit. He will return for a scheduled recheck on Tuesday. Departure - Departure Disposition: Home, Self Care Clinical Impression: Facial cellulitis Condition: Good Record reviewed to determine appropriate education?: Yes Instructions: Cellulitis Dc Prescriptions: Sulfamethox/Trimeth 800/160 [Bactrim Ds 800/160] 1 each PO BID #14 tablet cephALEXin [Keflex] 500 mg PO Q6H #28 cap Comments: Return on Tuesday for recheck, sooner if worse. As discussed, sometimes you will develop an abscess after the initial visit albeit 1 is not there at this time. Until then soap and water and do not pick at it.
== END 2022-05-22 17:52 | disposition home or self-care (01) ==
LOC: ED 17:09
DX: L03.211 Cellulitis of face (principal); F17.200 Nicotine dependence, unspecified, uncomplicated
CPT/HCPCS: 99282; 99283; A9270

== ENCOUNTER 2022-12-12 23:06 | Inpatient (IN) | payer MEDICAID ==
[2022-12-12] MEDS ORDERED: ONDANSETRON 4 MG/2 ML VIAL IVP STA (23:24)
[2022-12-12] MEDS ORDERED: SODIUM CHLORIDE 0.9% 500 ML IV ONE (23:24)
[2022-12-12 23:38] LABS: BASOPHILS % (AUTO) 0.3 %; HCT - HEMATOCRIT 51.5 % (42.0-52.0); HGB - HEMOGLOBIN 17.2 g/dL (14.0-18.0); LYMPHOCYTES % (AUTO) 4.4 %; MEAN CORPUSCULAR HEMOGLOBIN 27.8 pg (27.0-31.0); MEAN CORPUSCULAR HGB CONC 33.4 g/dL (32.0-36.0); MEAN CORPUSCULAR VOLUME 83.3 fL (80.0-94.0); MEAN PLATELET VOLUME 10.4 fL (7.4-11.4); MONOCYTES % (AUTO) 6.7 %; NEUTROPHILS % (AUTO) 87.7 %; PLT - PLATELET COUNT 239 10^3/uL (130-450); RED BLOOD COUNT 6.18 10^6/uL (4.70-6.10); WHITE BLOOD COUNT 24.9 x10^3/uL (4.8-10.8)
[2022-12-12 23:43] LABS: ABNORMAL LYMPHS % (MANUAL) 0 %
[2022-12-12 23:46] LABS: INR 1.1 (0.8-1.2); PT - PROTHROMBIN TIME 11.9 secs (9.9-12.6)
[2022-12-12 23:51] LABS: ALBUMIN 3.5 g/dL (3.2-5.5); ALBUMIN/GLOBULIN RATIO 0.7 (1.0-2.2); ALKALINE PHOSPHATASE 89 IU/L (42-121); ALT ALANINE AMINOTRANSFERASE 19 IU/L (10-60); AST ASPARTATE AMINOTRANSFERASE 19 IU/L (10-42); BILIRUBIN,TOTAL 1.2 mg/dL (0.2-1.0); BUN - BLOOD UREA NITROGEN 49 mg/dL (6-20); CALCIUM 9.2 mg/dL (8.5-10.3); CARBON DIOXIDE - CO2 21 mmol/L (21-32); CHLORIDE 90 mmol/L (101-111); CREATININE 1.4 mg/dL (0.6-1.2); ETOH - ETHANOL < 10.0 mg/dL; GFR - MDRD 52 (>89); GLUCOSE 351 mg/dL (70-100); LIPASE 21 U/L (22-51); POTASSIUM 4.7 mmol/L (3.5-5.0); SODIUM 131 mmol/L (135-145); TOTAL PROTEIN 8.3 g/dL (6.7-8.2)
--- NOTE | 2022-12-12 23:55 | ED Physician Documentation ---
History of Present Illness - Stated complaint Stated Complaint: LT LEG RED,WEAKNESS,DIZZINESS - Chief complaint Chief Complaint: General - History obtained from History obtained from: Patient - Additonal information Additional information: 57-year-old male with history of diabetes, hypertension, tobacco abuse, heart failure presents by private vehicle from home for approximately 4 days of progressively worsening generalized weakness and malaise. Patient states that he had an episode of nausea with vomiting 4 days ago and since that time he has felt listless and unwell. His p.o. intake has decreased significantly. Patient states that he also noticed today that his left lower extremity is red, however he states that he does not care for his feet and he has no idea how long his foot has been red. He has neuropathy in his lower extremities and cannot feel his feet at baseline. States he is supposed to be taking medications for his chronic medical problems however he hasn't taken them in almost 1 year. Review of Systems Constitutional: reports: Fatigue. denies: Fever, Chills Skin: reports: Rash (red area LLE). denies: Lesions, Abrasion (s), Laceration (s) Musculoskeletal: denies: Neck pain, Back pain, Extremity pain, Joint pain, Extremity swelling Neurologic: reports: Generalized weakness. denies: Focal weakness, Numbness, Difficulty speaking, Near syncope, Syncope PD PAST MEDICAL HISTORY - Past Medical History Cardiovascular: Congestive heart failure, Hypertension Respiratory: None Neuro: None Endocrine/Autoimmune: Type 2 diabetes GI: GERD : None HEENT: None Psych: None Musculoskeletal: Chronic back pain Derm: None - Past Surgical History Past Surgical History: Yes Ortho: Other Cardiovascular: Cardiac catheterization - Present Medications Home Medications: Ambulatory Orders Medication Instructions Recorded Confirmed Buprenorphine HCl/Naloxone HCl 1 film PO DAILY 12/12/22 12/12/22 [Suboxone 8 mg-2 mg Sl Film] - Allergies Allergies/Adverse Reactions: Allergies Allergy/AdvReac Type Severity Reaction Status Date / Time Penicillins Allergy Unknown Verified 12/12/22 23:43 - Social History Does the pt smoke?: Yes Smoking Status: Current every day smoker Does the pt drink ETOH?: No Does the pt have substance abuse?: Yes Substance Use and Type: Marijuana - Immunizations Immunizations are current?: No Immunizations: TDAP >10years/unknown - POLST Patient has POLST: No PD ED PE NORMAL - Vitals Vital signs reviewed: Yes - General General: Alert and oriented X 3, No acute distress, Other (disheveled, hygiene poor, appears much older than stated age) - HEENT HEENT: Atraumatic, PERRL, Other (poor dentition) - Neck Neck: Supple, no meningeal sign, No bony TTP - Cardiac Cardiac: Other (tachycardia, regular rhythm) - Respiratory Respiratory: No respiratory distress, Clear bilaterally - Abdomen Abdomen: Soft, Non tender, Non distended - Derm Derm: Other (erythema without warmth LLE. Distal pulses obtained with doppler. ) - Extremities Extremities: No deformity, Normal ROM s pain, No edema - Neuro Neuro: Alert and oriented X 3, tobacco dipper 2-12 intact, No motor deficit, Normal speech, Other (neuropathy bilateral lower extremities to ankles) - Psych Psych: Normal mood Results - Vitals Vitals: Vital Signs - 24 hr 12/12/22 12/12/22 12/13/22 23:11 23:30 00:00 Temperature 36.5 C Heart Rate 115 H 101 H 99 Respiratory 18 16 11 L Rate Blood Pressure 155/86 H 165/110 H 169/103 H O2 Saturation 98 100 100 12/13/22 12/13/22 12/13/22 00:30 01:00 01:30 Temperature Heart Rate 101 H 102 H 97 Respiratory 15 10 L 13 Rate Blood Pressure 185/102 H 181/105 H 152/95 H O2 Saturation 98 98 96 12/13/22 12/13/22 12/13/22 02:00 03:30 04:00 Temperature Heart Rate 101 H 93 88 Respiratory 10 L 12 11 L Rate Blood Pressure 180/102 H 177/98 H 166/92 H O2 Saturation 98 99 98 12/13/22 12/13/22 04:30 05:00 Temperature Heart Rate 85 89 Respiratory 18 16 Rate Blood Pressure 158/93 H 191/100 H O2 Saturation 97 98 Oxygen O2 Source Room air - Labs Labs: Laboratory Tests 12/12/22 12/12/22 12/12/22 20:30 20:31 23:30 WBC RBC Hgb Hct MCV MCH MCHC RDW Plt Count MPV Neut # (Auto) Lymph # (Auto) Jackson # (Auto) Eos # (Auto) Baso # (Auto) Absolute Nucleated RBC Total Counted Band Neuts % (Manual) Abnorm Lymph % (Manual) Nucleated RBC % Neutrophils # (Manual) Lymphocytes # (Manual) Monocytes # (Manual) Eosinophils # (Manual) Basophils # (Manual) Differential Comment Platelet Estimate Platelet Morphology RBC Morph Micro Appear PT INR VBG pH VBG pCO2 VBG pO2 VBG HCO3 VBG Total CO2 VBG O2 Saturation VBG Base Excess Sodium Potassium Chloride Carbon Dioxide Anion Gap BUN Creatinine Estimated GFR (MDRD) Glucose Lactic Acid Calcium Total Bilirubin AST ALT Alkaline Phosphatase Total Creatine Kinase 67 Troponin I High Sens 22.6 H* Total Protein Albumin Globulin Albumin/Globulin Ratio Lipase Urine Color Urine Clarity Urine pH Ur Specific [place] Urine Protein Urine Glucose (UA) Urine Ketones Urine Occult Blood Urine Nitrite Urine Bilirubin Urine Urobilinogen Ur Leukocyte Esterase Urine RBC Urine WBC Ur Squamous Epith Cells Urine Bacteria Ur Microscopic Review Urine Culture Comments Nasal Adenovirus (PCR) NOT DETECTED Nasal B. parapertussis DNA (PCR) NOT DETECTED Nasal Coronavir 229E PCR NOT DETECTED Nasal Coronavir HKU1 PCR NOT DETECTED Nasal Coronavir NL63 PCR NOT DETECTED Nasal Coronavir OC43 PCR NOT DETECTED Nasal Enterovir/Rhinovir PCR NOT DETECTED Nasal Influenza B PCR NOT DETECTED Nasal Influenza A PCR NOT DETECTED Nasal Parainfluen 1 PCR NOT DETECTED Nasal Parainfluen 2 PCR NOT DETECTED Nasal Parainfluen 3 PCR NOT DETECTED Nasal Parainfluen 4 PCR NOT DETECTED Nasal RSV (PCR) NOT DETECTED Nasal B.pertussis DNA PCR NOT DETECTED Nasal C.pneumoniae (PCR) NOT DETECTED Donn Human Metapneumo PCR NOT DETECTED Nasal M.pneumoniae (PCR) NOT DETECTED Nasal SARS-CoV-2 (PCR) NOT DETECTED Urine Opiates Screen Ur Oxycodone Screen Urine Methadone Screen Ur Propoxyphene Screen Ur Barbiturates Screen Ur Tricyclics Screen Ur Phencyclidine Scrn Ur Amphetamine Screen U Methamphetamines Scrn U Benzodiazepines Scrn Urine Cocaine Screen U Cannabinoids Screen Ethyl Alcohol 12/12/22 12/12/22 12/12/22 23:31 23:31 23:31 WBC 24.9 H RBC 6.18 H Hgb 17.2 Hct 51.5 MCV 83.3 MCH 27.8 MCHC 33.4 RDW 13.0 Plt Count 239 MPV 10.4 Neut # (Auto) Not Reportable Lymph # (Auto) Not Reportable Jackson # (Auto) Not Reportable Eos # (Auto) Not Reportable Baso # (Auto) Not Reportable Absolute Nucleated RBC Not Reportable Total Counted 100 Band Neuts % (Manual) 7 Abnorm Lymph % (Manual) 0 Nucleated RBC % Not Reportable Neutrophils # (Manual) 22.9 H Lymphocytes # (Manual) 1.2 L Monocytes # (Manual) 0.7 Eosinophils # (Manual) 0.0 Basophils # (Manual) 0.0 Differential Comment MANUAL DIFFERENTIAL Platelet Estimate NORMAL (130-450,000) Platelet Morphology NORMAL APPEARANCE RBC Morph Micro Appear NORMAL APPEARANCE PT 11.9 INR 1.1 VBG pH VBG pCO2 VBG pO2 VBG HCO3 VBG Total CO2 VBG O2 Saturation VBG Base Excess Sodium 131 L Potassium 4.7 Chloride 90 L Carbon Dioxide 21 Anion Gap 20.0 H BUN 49 H Creatinine 1.4 H Estimated GFR (MDRD) 52 L Glucose 351 H Lactic Acid Calcium 9.2 Total Bilirubin 1.2 H AST 19 ALT 19 Alkaline Phosphatase 89 Total Creatine Kinase Troponin I High Sens Total Protein 8.3 H Albumin 3.5 Globulin 4.8 H Albumin/Globulin Ratio 0.7 L Lipase 21 L Urine Color Urine Clarity Urine pH Ur Specific [place] Urine Protein Urine Glucose (UA) Urine Ketones Urine Occult Blood Urine Nitrite Urine Bilirubin Urine Urobilinogen Ur Leukocyte Esterase Urine RBC Urine WBC Ur Squamous Epith Cells Urine Bacteria Ur Microscopic Review Urine Culture Comments Nasal Adenovirus (PCR) Nasal B. parapertussis DNA (PCR) Nasal Coronavir 229E PCR Nasal Coronavir HKU1 PCR Nasal Coronavir NL63 PCR Nasal Coronavir OC43 PCR Nasal Enterovir/Rhinovir PCR Nasal Influenza B PCR Nasal Influenza A PCR Nasal Parainfluen 1 PCR Nasal Parainfluen 2 PCR Nasal Parainfluen 3 PCR Nasal Parainfluen 4 PCR Nasal RSV (PCR) Nasal B.pertussis DNA PCR Nasal C.pneumoniae (PCR) Donn Human Metapneumo PCR Nasal M.pneumoniae (PCR) Nasal SARS-CoV-2 (PCR) Urine Opiates Screen Ur Oxycodone Screen Urine Methadone Screen Ur Propoxyphene Screen Ur Barbiturates Screen Ur Tricyclics Screen Ur Phencyclidine Scrn Ur Amphetamine Screen U Methamphetamines Scrn U Benzodiazepines Scrn Urine Cocaine Screen U Cannabinoids Screen Ethyl Alcohol < 10.0 12/13/22 12/13/22 12/13/22 00:06 00:06 04:59 WBC 20.9 H RBC 5.71 Hgb 15.8 Hct 49.1 MCV 86.0 MCH 27.7 MCHC 32.2 RDW 13.0 Plt Count 187 MPV 10.7 Neut # (Auto) 18.1 H Lymph # (Auto) 1.2 L Jackson # (Auto) 1.5 H Eos # (Auto) 0.0 Baso # (Auto) 0.1 Absolute Nucleated RBC 0.00 Total Counted Band Neuts % (Manual) Abnorm Lymph % (Manual) Nucleated RBC % 0.0 Neutrophils # (Manual) Lymphocytes # (Manual) Monocytes # (Manual) Eosinophils # (Manual) Basophils # (Manual) Differential Comment Platelet Estimate Platelet Morphology RBC Morph Micro Appear PT INR VBG pH 7.339 VBG pCO2 42.4 VBG pO2 27.0 VBG HCO3 22.3 L VBG Total CO2 23.6 L VBG O2 Saturation 53.0 L VBG Base Excess -3.4 L Sodium Potassium Chloride Carbon Dioxide Anion Gap BUN Creatinine Estimated GFR (MDRD) Glucose Lactic Acid 2.3 H Calcium Total Bilirubin AST ALT Alkaline Phosphatase Total Creatine Kinase Troponin I High Sens Total Protein Albumin Globulin Albumin/Globulin Ratio Lipase Urine Color Urine Clarity Urine pH Ur Specific [place] Urine Protein Urine Glucose (UA) Urine Ketones Urine Occult Blood Urine Nitrite Urine Bilirubin Urine Urobilinogen Ur Leukocyte Esterase Urine RBC Urine WBC Ur Squamous Epith Cells Urine Bacteria Ur Microscopic Review Urine Culture Comments Nasal Adenovirus (PCR) Nasal B. parapertussis DNA (PCR) Nasal Coronavir 229E PCR Nasal Coronavir HKU1 PCR Nasal Coronavir NL63 PCR Nasal Coronavir OC43 PCR Nasal Enterovir/Rhinovir PCR Nasal Influenza B PCR Nasal Influenza A PCR Nasal Parainfluen 1 PCR Nasal Parainfluen 2 PCR Nasal Parainfluen 3 PCR Nasal Parainfluen 4 PCR Nasal RSV (PCR) Nasal B.pertussis DNA PCR Nasal C.pneumoniae (PCR) Donn Human Metapneumo PCR Nasal M.pneumoniae (PCR) Nasal SARS-CoV-2 (PCR) Urine Opiates Screen Ur Oxycodone Screen Urine Methadone Screen Ur Propoxyphene Screen Ur Barbiturates Screen Ur Tricyclics Screen Ur Phencyclidine Scrn Ur Amphetamine Screen U Methamphetamines Scrn U Benzodiazepines Scrn Urine Cocaine Screen U Cannabinoids Screen Ethyl Alcohol 12/13/22 12/13/22 12/13/22 04:59 05:05 05:05 WBC RBC Hgb Hct MCV MCH MCHC RDW Plt Count MPV Neut # (Auto) Lymph # (Auto) Jackson # (Auto) Eos # (Auto) Baso # (Auto) Absolute Nucleated RBC Total Counted Band Neuts % (Manual) Abnorm Lymph % (Manual) Nucleated RBC % Neutrophils # (Manual) Lymphocytes # (Manual) Monocytes # (Manual) Eosinophils # (Manual) Basophils # (Manual) Differential Comment Platelet Estimate Platelet Morphology RBC Morph Micro Appear PT INR VBG pH VBG pCO2 VBG pO2 VBG HCO3 VBG Total CO2 VBG O2 Saturation VBG Base Excess Sodium 133 L Potassium 4.2 Chloride 100 L Carbon Dioxide 20 L Anion Gap 13.0 BUN 40 H Creatinine 0.9 Estimated GFR (MDRD) 86 L Glucose 266 H Lactic Acid Calcium 8.9 Total Bilirubin 0.6 AST 12 ALT 8 L Alkaline Phosphatase 80 Total Creatine Kinase Troponin I High Sens Total Protein 6.9 Albumin 3.6 Globulin 3.3 Albumin/Globulin Ratio 1.1 Lipase Urine Color YELLOW Urine Clarity CLEAR Urine pH 5.5 Ur Specific [place] 1.025 Urine Protein 100 H Urine Glucose (UA) >=1000 H Urine Ketones 40 H Urine Occult Blood SMALL H Urine Nitrite NEGATIVE Urine Bilirubin NEGATIVE Urine Urobilinogen 0.2 (NORMAL) Ur Leukocyte Esterase NEGATIVE Urine RBC 0-5 Urine WBC 0-3 Ur Squamous Epith Cells RARE Squamous Urine Bacteria None Seen Ur Microscopic Review INDICATED Urine Culture Comments NOT INDICATED Nasal Adenovirus (PCR) Nasal B. parapertussis DNA (PCR) Nasal Coronavir 229E PCR Nasal Coronavir HKU1 PCR Nasal Coronavir NL63 PCR Nasal Coronavir OC43 PCR Nasal Enterovir/Rhinovir PCR Nasal Influenza B PCR Nasal Influenza A PCR Nasal Parainfluen 1 PCR Nasal Parainfluen 2 PCR Nasal Parainfluen 3 PCR Nasal Parainfluen 4 PCR Nasal RSV (PCR) Nasal B.pertussis DNA PCR Nasal C.pneumoniae (PCR) Donn Human Metapneumo PCR Nasal M.pneumoniae (PCR) Nasal SARS-CoV-2 (PCR) Urine Opiates Screen NEGATIVE Ur Oxycodone Screen NEGATIVE Urine Methadone Screen NEGATIVE Ur Propoxyphene Screen NEGATIVE Ur Barbiturates Screen NEGATIVE Ur Tricyclics Screen NEGATIVE Ur Phencyclidine Scrn NEGATIVE Ur Amphetamine Screen NEGATIVE U Methamphetamines Scrn NEGATIVE U Benzodiazepines Scrn NEGATIVE Urine Cocaine Screen NEGATIVE U Cannabinoids Screen POSITIVE H Ethyl Alcohol PD Medical Decision Making - ED course Complexity details: reviewed old records, reviewed results, re-evaluated patient, considered differential, d/w patient ED course: This is a chronically unwell appearing patient with 4 days of generalized weakness and decreased p.o. intake. He also endorses redness to his left lower extremity, however states that he has no idea how long the lower extremity has actually been red he only notes that earlier today. Laboratory work significant for leukocytosis, elevated anion gap, elevated creatinine, elevated glucose. CO2 is normal, patient does not appear to be in DKA. Suspect this is sequela of dehydration from multiple days of decreased p.o. intake and overall poor care of self. X-rays reviewed, no acute findings identified. We will continue to hydrate patient and will recheck labs, taking care to not volume overload patient. Recheck laboratory work shows improved creatinine, anion gap, however leukocytosis is still marked >20. Patient's vital signs stable, however based on patient's numerous comorbidities and potential for bloodstream infection with marked leukocytosis and extensive cellulitis plan to admit patient for IV a ntibiotics. Vancomycin and Rocephin given in ED. Departure - Departure Disposition: 66 [facility] DC/Xfer Clinical Impression: Dehydration, Noncompliance with medication regimen, Peripheral arterial disease Cellulitis Qualifiers: Site of cellulitis: extremity Site of cellulitis of extremity: lower extremity Laterality: left Qualified Code(s): L03.116 - Cellulitis of left lower limb Condition: Stable Forms: PCP List
[2022-12-13 00:13] LABS: VBG BASE EXCESS -3.4 mmol/L (-2 - +2); VBG HCO3 22.3 mmol/L (23-28); VBG PCO2 42.4 mmHg (41-51); VBG PH 7.339 (7.31-7.41); VBG TOTAL CO2 23.6 mmol/L (24-29)
[2022-12-13 00:21] LABS: BAND NEUTROPHILS % (MANUAL) 7 %; LYMPHOCYTES # (MANUAL) 1.2 10^3/uL (1.5-3.5); LYMPHOCYTES % (MANUAL) 5 %; MONOCYTES # (MANUAL) 0.7 10^3/uL (0.0-1.0); NEUTROPHILS # (MANUAL) 22.9 10^3/uL (1.5-6.6); PLATELET MORPHOLOGY NORMAL APPEARANCE (NORMAL); RBC MORPHOLOGY (MULTIPLE) NORMAL APPEARANCE (NORMAL)
[2022-12-13 00:22] LABS: DIFFERENTIAL COMMENT MANUAL DIFFERENTIAL; PLATELET ESTIMATE, MANUAL NORMAL (130-450,000) (NORMAL)
--- NOTE | 2022-12-13 00:22 | XRAY Report ---
PROCEDURE: Chest 1 View X-Ray INDICATIONS: GEN WEAKNESS TECHNIQUE: One view of the chest was acquired. COMPARISON: 11/30/2019. FINDINGS: Surgical changes and devices: None. Lungs and pleura: No pleural effusions or pneumothorax. Lungs are clear. Mediastinum: Mediastinal contours appear normal. Heart size is normal. Bones and chest wall: No suspicious bony lesions. Overlying soft tissues appear unremarkable. IMPRESSION: No acute cardiopulmonary disease. Reviewed by: Adrian Díaz MD on 12/13/2022 12:21 AM PDT Approved by: Adrian Díaz MD on 12/13/2022 12:21 AM PDT Station ID: [id number]
[2022-12-13 00:37] LABS: B. PARAPERTUSSIS- RESP PCR PAN NOT DETECTED; B. PERTUSSIS- RESP PCR PANEL NOT DETECTED; C. PNEUMONIAE- RESP PCR PANEL NOT DETECTED; CORONAVIRUS 229E-RESP PCR NOT DETECTED; CORONAVIRUS HKU1-RESP PCR NOT DETECTED; CORONAVIRUS NL63-RESP PCR NOT DETECTED; CORONAVIRUS OC43-RESP PCR NOT DETECTED; HUMAN METAPNEUMOVIRUS NOT DETECTED; INFLUENZA A- RESP PCR PANEL NOT DETECTED; INFLUENZA B - RESP PCR PANEL NOT DETECTED; M. PNEUMONIAE- RESP PCR PANEL NOT DETECTED; PARAINFLUENZA VIRUS 1 NOT DETECTED; PARAINFLUENZA VIRUS 2 NOT DETECTED; PARAINFLUENZA VIRUS 3 NOT DETECTED; PARAINFLUENZA VIRUS 4 NOT DETECTED; RHINOVIRUS/ENTEROVIRUS NOT DETECTED; RSV- RESP PCR PANEL NOT DETECTED; SARS-CoV-2 -RESP PCR PANEL NOT DETECTED
[2022-12-13] MEDS ORDERED: SODIUM CHLORIDE 0.9% 1,000 ML IV STA ×2 (01:09→02:25)
--- NOTE | 2022-12-13 02:06 | XRAY Report ---
PROCEDURE: Foot 3 View LT INDICATIONS: toe wounds/cellulitis TECHNIQUE: 3 views of the foot were acquired. COMPARISON: None. FINDINGS: Bones: No fractures or dislocations. No discrete bony erosions or periosteal reaction. There is mil d degeneration of the first metatarsophalangeal joint. No suspicious bony lesions. Soft tissues: No suspicious soft tissue calcifications or masses. IMPRESSION: 1. No definite radiographic evidence of osteomyelitis. If clinical concern persists, further evaluation may obtained with MRI. Reviewed by: Adrian Díaz MD on 12/13/2022 2:05 AM PDT Approved by: Adrian Díaz MD on 12/13/2022 2:05 AM PDT Station ID: [id number]
[2022-12-13 05:10] LABS: BASOPHILS # (AUTO) 0.1 10^3/uL (0.0-0.1); BASOPHILS % (AUTO) 0.3 %; HCT - HEMATOCRIT 49.1 % (42.0-52.0); HGB - HEMOGLOBIN 15.8 g/dL (14.0-18.0); LYMPHOCYTES # (AUTO) 1.2 10^3/uL (1.5-3.5); LYMPHOCYTES % (AUTO) 5.7 %; MEAN CORPUSCULAR HEMOGLOBIN 27.7 pg (27.0-31.0); MEAN CORPUSCULAR HGB CONC 32.2 g/dL (32.0-36.0); MEAN PLATELET VOLUME 10.7 fL (7.4-11.4); MONOCYTES # (AUTO) 1.5 10^3/uL (0.0-1.0); MONOCYTES % (AUTO) 6.9 %; NEUTROPHILS # (AUTO) 18.1 10^3/uL (1.5-6.6); NEUTROPHILS % (AUTO) 86.4 %; PLT - PLATELET COUNT 187 10^3/uL (130-450); RED BLOOD COUNT 5.71 10^6/uL (4.70-6.10); WHITE BLOOD COUNT 20.9 x10^3/uL (4.8-10.8)
[2022-12-13 05:15] LABS: MUDS CUTOFF CONCENTRATIONS CUTOFF CONC BELOW:
[2022-12-13 05:16] LABS: GLUCOSE, URINE (UA) >=1000 mg/dL (NEGATIVE); KETONES,URINE (UA) 40 mg/dL (NEGATIVE); LEUKOCYTE ESTERASE, URINE NEGATIVE (NEGATIVE); NITRITE,URINE NEGATIVE (NEGATIVE); OCCULT BLOOD,URINE SMALL (NEGATIVE); PH,URINE 5.5 PH (5.0-7.5); PROTEIN,URINE 100 mg/dL (NEGATIVE); UROBILINOGEN,URINE 0.2 (NORMAL) E.U./dL (NORMAL)
[2022-12-13 05:18] LABS: BILIRUBIN,URINE NEGATIVE (NEGATIVE); CLARITY,URINE CLEAR (CLEAR); ICTOTEST,URINE NEGATIVE
[2022-12-13 05:24] LABS: BACTERIA,URINE None Seen /HPF (None Seen); RBC,URINE 0-5 /HPF (0-5); SQUAMOUS EPITHELIAL CELL,UR RARE Squamous (<= Few); WBC,URINE 0-3 /HPF (0-3)
[2022-12-13 05:26] LABS: AMPHETAMINE SCREEN,URINE NEGATIVE (NEGATIVE); BARBITURATE SCREEN,UR NEGATIVE (NEGATIVE); BENZODIAZEPINES SCREEN, URINE NEGATIVE (NEGATIVE); COCAINE SCREEN URINE NEGATIVE (NEGATIVE); METHADONE SCREEN, URINE NEGATIVE (NEGATIVE); METHAMPHETAMINES SCREEN, URINE NEGATIVE (NEGATIVE); OPIATE SCREEN, URINE NEGATIVE (NEGATIVE); OXYCODONE SCREEN, URINE NEGATIVE (NEGATIVE); PROPOXYPHENE SCREEN, URINE NEGATIVE (NEGATIVE); THC CANNABINOID SCREEN, URINE POSITIVE (NEGATIVE); TRICYCLIC ANTIDEPRESSANT,URINE NEGATIVE (NEGATIVE)
[2022-12-13 05:28] LABS: ALBUMIN 3.6 g/dL (3.2-5.5); ALBUMIN/GLOBULIN RATIO 1.1 (1.0-2.2); BILIRUBIN,TOTAL 0.6 mg/dL (0.2-1.0); CALCIUM 8.9 mg/dL (8.5-10.3); CREATININE 0.9 mg/dL (0.6-1.3); POTASSIUM 4.2 mmol/L (3.5-4.5); TOTAL PROTEIN 6.9 g/dL (6.4-8.9)
[2022-12-13] MEDS ORDERED: VANCOMYCIN INJ 1 GM in SODIUM CHLORIDE 0.9% 500 ML IV STA (05:42)
[2022-12-13] MEDS ORDERED: cefTRIAXone 1 GM in SODIUM CHLORIDE 0.9% MINIBAG 100 ML IV STA (05:42)
[2022-12-13] MEDS ORDERED: cefTRIAXone 1 GM VIAL ONE (06:06)
[2022-12-13] MEDS ORDERED: VANCOMYCIN INJ 1.75 GM in SODIUM CHLORIDE 0.9% 500 ML IV ONE (07:00)
[2022-12-13] MEDS ORDERED: ONDANSETRON 4 MG/2 ML VIAL IVP PRN (09:30)
[2022-12-13] MEDS ORDERED: ACETAMINOPHEN 325 MG TABLET PO PRN (09:30)
[2022-12-13] MEDS ORDERED: SODIUM CHLORIDE FLUSH 0.9% 10 ML SYRINGE IVP PRN (09:30)
--- NOTE | 2022-12-13 09:30 | ED Physician Documentation ---
ED Addendum - Addendum Addendum: 12/13/22 09:28 The patient was comfortable this morning. He is being admitted with orders yet to be written. I did talk with Dr. Perry to check his on for the day and she has not gotten signout from the overnight hospitalist. She will write orders. The patient seems well this morning and is afebrile alert and conversant. There is redness in the left anterior leg. No calf tenderness or swelling. Poorly kept skin with dry skin and thickening and long toenails. No abscess appearance. The patient is stable at this time and awaiting transfer to the floor.
[2022-12-13 10:22] LABS: ESTIMATED AVERAGE GLUCOSE 280 mg/dL (70-100); HEMOGLOBIN A1c% 11.4 % (4.27-6.07)
[2022-12-13] MEDS: ENOXAPARIN 40 MG/0.4 ML SYRINGE SUBQ SCH (11:05)
[2022-12-13] MEDS: NICOTINE 14 MG PATCH TOP PRN (11:08)
--- NOTE | 2022-12-13 11:17 | HISTORY & PHYSICAL EXAMINATION ---
Chief Complaint - Chief Complaint Chief Complaint: Leg redness History of Present Illness - Admitted From Admitted From:: ED - History Obtained From History obtained from: ED provider and the patient - History of Present Illness HPI Comment/Other: This is a 57-year-old male with a history of diabetes, CHF and depression. He used to abuse narcotics which she took for low back pain, as no transfer addition to using buprenorphine. He lost his 5 years ago and since that time reports being in a severe depression, stopped taking any diabetic medicines or taking fingersticks. He also no longer takes medicines for heart failure because because he says those ran out and he feels fine. He has no PCP. He gets his buprenorphine from a clinic in [place]. Patient says that 3 days ago he suddenly got nausea and vomiting and this continued for 3 days, and he could keep nothing down except drinking water. He also did not take his buprenorphine. This morning he awoke and noticed that his left leg was red. He is not sure when that started because he is been mostly in bed resting because of his nausea and vomiting. He denies a fever. He denies any trauma to that leg. He says he cannot feel his feet and knows that he has very bad foot hygiene. He says he cannot reach down to take care of his feet and toes, due to the back pain. He lives with a renter in his trailer. 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 He presented to the ER this morning because of the new L leg redness that he noticed but his nausea has been subsiding. In the ER he was found to have elevated white blood count of 24 with 7% bands, lactic acid elevated at 2.3 and glucose elevated at 350. The ED provider spoke to me about this patient. He will be admitted to the Hospitalist service to treat cellulitis and uncontrolled hyperglycemia in a diabetic who is noncompliant with his treatment. I spoke to him about his CODE BLUE wishes and he wants to be a full code. History - Past Medical History Cardiovascular: reports: Congestive heart failure, Hypertension, High cholesterol Respiratory: reports: None, Pneumonia Neuro: reports: None Endocrine/Autoimmune: reports: Type 2 diabetes GI: reports: GERD, Ulcers : reports: None HEENT: reports: None Psych: reports: Depression, Post traumatic stress disorder Musculoskeletal: reports: Chronic back pain Derm: reports: None MRSA Hx?: No - Past Surgical History Ortho: reports: Other Cardiovascular: reports: Cardiac catheterization - Family & Social History Family History: Mother: , Father: Family History Comment/Other: Mother passed in her 60s from unspecified cancer. Father passed in his 50s from unknown cause, hx of ETOH abuse and homelessness. 2 Sisters passed in their 60's from unspecified cancers. Living arrangement: At home Living Situation: With friend(s) Social History Notes: 5 years ago from cancer. Was his childhood sweetheart. Since her passing he has felt depressed. Son was tragically killed by a motor vehicle at the age of 4. Daughter and grandaughter live in town and are active in his life. 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 Has been a PPD smoker for over 40 years, now smokes 2 PPD. Denies alcohol use. Previous abuse of opiods in 2008 prompting him to begin a suboxone program. He occasional smokes a few hits of marijuana. - Substance History Use: Uses substance without health or social issues: Tobacco, Cannabis Tobacco Details: Cigarettes - POLST Patient has POLST: No POLST Status: Full Code Meds/Allgy - Home Medications Home Medications: Ambulatory Orders Medication Instructions Recorded Confirmed Buprenorphine HCl/Naloxone HCl 1 film PO DAILY 12/12/22 12/12/22 [Suboxone 8 mg-2 mg Sl Film] - Allergies Allergies/Adverse Reactions: Allergies Allergy/AdvReac Type Severity Reaction Status Date / Time Penicillins Allergy Unknown Verified 12/12/22 23:43 Review of Systems - Constitutional Constitutional: reports: Weakness (3 days while having N/V) - Gastrointestinal Gastrointestinal: reports: Nausea, Vomiting - Musculoskeletal Musculoskeletal: reports: Other (chronic LBP x years) - All Other Systems All Other Systems: reports: Reviewed and negative Exam - Vital Signs Vital Signs: Vital Signs x48h Temp Pulse Pulse Resp BP BP Pulse Ox 12/13/22 11:13 36.2 C L 98 18 156/96 H 95 12/13/22 10:07 72 12 124/79 98 12/13/22 08:38 36.3 C L 84 18 157/88 H 98 12/13/22 07:00 90 16 155/85 H 96 12/13/22 05:00 89 16 191/100 H 98 12/13/22 04:30 85 18 158/93 H 97 12/13/22 04:00 88 11 L 166/92 H 98 12/13/22 03:30 93 12 177/98 H 99 - Physical Exam General Appearance: positive: No acute distress, Alert, Other (Disheveled, long hair, unshaven, thin male appears older than his age.) Eyes Bilateral: positive: Normal inspection, EOMI ENT: positive: ENT inspection nml, No signs of dehydration Neck: positive: Nml inspection, No JVD Respiratory: positive: No respiratory distress, Breath sounds nml Cardiovascular: positive: Regular rate & rhythm, No murmur Abdomen: positive: Non-tender, Nml bowel sounds, No distention Skin: positive: Other (Dry scaly) Extremities: positive: Other (Redness, without swelling or warmth, minimal tenderness of L lower leg anterior and laterally. Feet dirty, scaly. Toes all long and curled and thick.) Neurologic/Psychiatric: positive: Oriented x3, Motor nml Sepsis Event Note (H) - Evaluation Current Stage of Sepsis: Sepsis - Sepsis Criteria Sepsis Criteria: Recorded Heart Rate greater than 90 bpm, WBC count greater than 12,000 or less than 4000, Metabolic: lactate > 2 mmol/L Conclusion/Plan - Problem List (1) Sepsis Conclusion/Plan: He is tachycardic, has a very high WBC of 24 and elevated lactic acid level. The source appears to be cellulitis of his left lower leg Plan: Blood cultures were already taken in ED and he was started on antibiotics empirically which we will continue, IV ceftriaxone and IV Vanco Give iv fluids Follow WBC daily Await bld cx results (2) Cellulitis Conclusion/Plan: He noticed the redness with minimal pain today however he has not been looking at his legs since he is mostly been in bed recovering from nausea and vomiting of 3 days Blood cultures were already taken in ED and he was started on antibiotics empirically using IV ceftriaxone and IV Vanco Plan: As in #1 Cnt empiric IV ceftriaxone and IV Vanco Outline the area to watch if it recedes or increases Qualifiers: Site of cellulitis: extremity Site of cellulitis of extremity: lower extremity Laterality: left Qualified Code(s): L03.116 - Cellulitis of left lower limb (3) Diabetes mellitus Conclusion/Plan: Patient claims he has not been on medicine for 5 years since the of his because he is so depressed and does not care about his sugar. He denies checking his fingersticks and denies following a diabetic diet Plan: We will order diabetic diet Fingerstick checks, sliding scale insulin coverage, hypoglycemia protocol, check his A1c He will need diabetic teaching or the batch plant supervisor to discuss the importance of managing his glucose Qualifiers: Diabetes mellitus type: type 2 Diabetes mellitus intermediate insulin use: without intermediate use Diabetes mellitus complication status: with hyperglycemia Qualified Code(s): E11.65 - Type 2 diabetes mellitus with hyperglycemia (4) Non compliance w medication regimen Conclusion/Plan: As above. Plan: Diabetic teaching needed (5) Hx of congestive heart failure Conclusion/Plan: He denies any RSOS, PND, leg edema. He says he has not been on his cardiac meds for over a year. He also has no PCP. Plan: Obtain Echocardiogram to reevaluate his LVEF Currently he is not volume overloaded and VS are stable, no specific meds needed (6) Poor hygiene Conclusion/Plan: The patient admits he cannot take care of his lower extremities since he cannot bend his back Plan: Supportive care, shower while here, OT evaluation I discussed with him that he will need an appointment to an outpatient podi atrist - Lab Results Fish Bones: 12/14/22 04:43 12/14/22 04:43 - Other Other Results/Comments: Attestation: The patient is expected to be hospitalized for greater than 2 midnights, and is expected to be discharged or transferred to another facility within 96 hours: Yes.
--- NOTE | 2022-12-13 11:45 | PHARMACY PROGRESS NOTE ---
- Best Possible Medication History Admit Date and Time: 12/13/22928 Processed by: Pharmacy Medication History completed: Yes Patient Interview: Completed Secondary Source(s): Insurance records As the person ultimately responsible for medication therapy, providers are able to order a medication from an existing home medication list in [facility] via the "Reconcile Routine" prior to Confirmation of that medication by production support manager. Such practice is discouraged except when the physician, in their clinical judgment, deems that a medical need exists for a medication without regard to previous use.
[2022-12-13] MEDS: INSULIN LISPRO 300 UNIT/3 ML PEN SUBQ SCH ×3 (12:03→21:15)
--- NOTE | 2022-12-13 13:27 | PHARMACY PROGRESS NOTE ---
- Therapy Status Vancomycin regimen day #: 1 Therapy status: Awaiting steady state Basis for treatment: Empirical Treatment indication: CELLULITES Trough goal: 10-15 Concurrent antibiotics: CEFTRIAXONE 1 GRAM DAILY - TREVOR Risk Risk level for Acute Kidney Injury: Low Acute Kidney Injury risk factors: Diabetes - Monitoring and Recommendation Clinical response to treatment: I&O Previous 24 hours 12/11/22 12/12/22 12/13/22 23:59 23:59 23:59 Intake Total 3100 Output Total 800 Balance 2300 Lab Results 12/13/22 12/12/22 04:59 23:31 BUN 40 H 49 H Creatinine 0.9 1.4 H Estimated GFR (MDRD) 86 L 52 L Monitoring plan: Daily serum creatinine Next trough due prior to maintenance dose #: 4 Next trough due (date/time): 12/14/22 18:30
[2022-12-13] MEDS ORDERED: VANCOMYCIN INJ 1 GM, VANCOMYCIN INJ 500 MG in SODIUM CHLORIDE 0.9% 500 ML IV ONE (14:00)
[2022-12-13] MEDS: BUPRENORPHINE/NALOXONE 8-2 MG TAB SL SCH (14:56)
[2022-12-13] MEDS: CALCIUM CARBONATE CHEW 500 MG TABLET PO PRN (17:08)
[2022-12-13] MEDS ORDERED: VANCOMYCIN INJ 1.25 GM in SODIUM CHLORIDE 0.9% 250 ML IV SCH (19:00)
[2022-12-13] MEDS: VANCOMYCIN INJ 1 GM, VANCOMYCIN INJ 250 MG in SODIUM CHLORIDE 0.9% 250 ML IV SCH (19:11)
[2022-12-13] MEDS: SODIUM CHLORIDE FLUSH 0.9% 10 ML SYRINGE IVP SCH (19:11)
[2022-12-14] MEDS: SODIUM CHLORIDE FLUSH 0.9% 10 ML SYRINGE IVP SCH ×3 (00:01→16:58)
[2022-12-14 05:17] LABS: BASOPHILS # (AUTO) 0.1 10^3/uL (0.0-0.1); BASOPHILS % (AUTO) 0.3 %; EOSINOPHILS % (AUTO) 0.3 %; HCT - HEMATOCRIT 39.6 % (42.0-52.0); HGB - HEMOGLOBIN 13.3 g/dL (14.0-18.0); LYMPHOCYTES # (AUTO) 1.2 10^3/uL (1.5-3.5); LYMPHOCYTES % (AUTO) 8.2 %; MEAN CORPUSCULAR HEMOGLOBIN 27.8 pg (27.0-31.0); MEAN CORPUSCULAR HGB CONC 33.6 g/dL (32.0-36.0); MEAN CORPUSCULAR VOLUME 82.7 fL (80.0-94.0); MEAN PLATELET VOLUME 10.7 fL (7.4-11.4); MONOCYTES # (AUTO) 1.5 10^3/uL (0.0-1.0); PLT - PLATELET COUNT 186 10^3/uL (130-450); RED BLOOD COUNT 4.79 10^6/uL (4.70-6.10); RED CELL DISTRIBUTION WIDTH 12.7 % (12.0-15.0)
[2022-12-14 05:38] LABS: CALCIUM 8.4 mg/dL (8.5-10.3); CREATININE 0.7 mg/dL (0.6-1.3); POTASSIUM 3.8 mmol/L (3.5-4.5)
[2022-12-14] MEDS: VANCOMYCIN INJ 1 GM, VANCOMYCIN INJ 250 MG in SODIUM CHLORIDE 0.9% 250 ML IV SCH ×2 (06:35→18:59)
[2022-12-14] MEDS: INSULIN LISPRO 300 UNIT/3 ML PEN SUBQ SCH ×3 (08:46→21:04)
[2022-12-14] MEDS: ENOXAPARIN 40 MG/0.4 ML SYRINGE SUBQ SCH (08:46)
[2022-12-14] MEDS: cefTRIAXone 1 GM in SODIUM CHLORIDE 0.9% MINIBAG 100 ML IV SCH (08:47)
[2022-12-14] MEDS: BUPRENORPHINE/NALOXONE 8-2 MG TAB SL SCH (08:47)
[2022-12-14] MEDS ORDERED: INSULIN LISPRO 300 UNIT/3 ML PEN SUBQ SCH (12:00)
[2022-12-14] MEDS: CHOLECALCIFEROL 25 MCG TABLET PO SCH (12:02)
[2022-12-14] MEDS: NICOTINE 14 MG PATCH TOP PRN (12:02)
[2022-12-14] MEDS: MULTIVITAMIN W/MINERALS TABLET PO SCH (12:05)
--- NOTE | 2022-12-14 13:51 | PROVIDER PROGRESS NOTE ---
Assessment/Plan - Problem List (1) Cellulitis Qualifiers: Site of cellulitis: extremity Site of cellulitis of extremity: lower extremity Laterality: left Qualified Code(s): L03.116 - Cellulitis of left lower limb Assessment/Plan: He noticed the redness with minimal pain when he got out of bed recovering from nausea and vomiting of 3 days at home. At presntation he was fatigued, and had sepsis by labs and VS. Blood cultures were already taken in ED and he was started on antibiotics empirically using IV ceftriaxone and IV Vanco WBC has improved from 24 at admission >> 20 yesterday >> 15 today (all labs were reviewed. Plan: Cont empiric IV ceftriaxone and IV Vanco Outline the area and watch if it recedes or increases Await bld cx results to tailor antibx Qualifiers: Site of cellulitis: extremity Site of cellulitis of extremity: lower extremity Laterality: left Qualified Code(s): L03.116 - Cellulitis of left lower limb (2) Diabetes mellitus w/ hyperglycemia Conclusion/Plan: Patient claimed he has not been on medicine for 5 years since the of his because he is so depressed and does not care about his sugar. He denies checking his fingersticks and denies following a diabetic diet. His A1c came back at 11 Dietitian Nurys saw him today, spoke to him about the importance, he agreed to restart metformin twice daily Plan: Cont diabetic diet,fingerstick checks, sliding scale insulin coverage, hypoglycemia protocol Start metformin 500 twice daily Qualifiers: Diabetes mellitus type: type 2 Diabetes mellitus parts counterman insulin use: without nursing home use Diabetes mellitus complication status: with hyperglycemia Qualified Code(s): E11.65 - Type 2 diabetes mellitus with hyperglycemia (3) Non compliance w medication regimen Conclusion/Plan: As above. Plan: As in #2 (4) Hx of congestive heart failure Conclusion/Plan: He denies any ROSS, PND, leg edema. He says he has not been on his cardiac meds for over a year. He also has no PCP. Plan: Obtain Echocardiogram to reevaluate his LVEF Currently he is not volume overloaded and VS are stable, no specific meds needed (5) Poor hygiene Conclusion/Plan: The patient admits he cannot take care of his lower extremities since he cannot bend his back Plan: Supportive care, shower while here, PT and OT evaluations I discussed with him that he will need an appointment to an outpatient receptionist secretary (6) Sepsis Conclusion/Plan: RESOLVED He is no longer tachycardic, the white blood count is improving as we are treating his cellulitis - Current Meds Current Meds: Current Medications Generic Name Dose Route Start Last Admin Trade Name Caitlin PRN Reason Stop Dose Admin Acetaminophen 650 mg 12/13/22 09:30 12/13/22 11:05 Acetaminophen 325 Mg Tablet PO 650 mg Q4HR PRN Administration Pain 1 to 4, or Fever Buprenorphine HCl 1 tab 12/13/22 15:00 12/14/22 08:47 Buprenorphine/Naloxone 8-2 Mg Tab SL 1 tab DAILY HOWARD Administration Calcium Carbonate/Glycine 500 mg 12/13/22 16:02 12/13/22 17:08 Calcium Carbonate Chew 500 Mg Tablet PO 500 mg QID PRN Administration Heartburn Cholecalciferol 50 mcg 12/14/22 12:00 12/14/22 12:02 Cholecalciferol 25 Mcg Tablet PO 50 mcg DAILY HOWARD Administration Enoxaparin Sodium 40 mg 12/13/22 10:00 12/14/22 08:46 Enoxaparin 40 Mg/0.4 Ml Syringe SUBQ 40 mg DAILY HOWARD Administration Ceftriaxone Sodium 1 gm/ 100 mls @ 200 mls/hr 12/14/22 09:00 12/14/22 09:20 Sodium Chloride IV Infused DAILY HOWARD Infusion Vancomycin HCl 1 gm/ 250 mls @ 125 mls/hr 12/13/22 19:00 12/14/22 08:10 Vancomycin HCl 250 mg/ Sodium IV 0 mls/hr Chloride Q12H HOWARD Infusion Multivitamins/Minerals 1 tab 12/14/22 12:00 12/14/22 12:05 Multivitamin W/Minerals Tablet PO 1 tab DAILYWM HOWARD Administration Nicotine 1 patch 12/13/22 10:29 12/14/22 12:02 Nicotine 14 Mg Patch TOP 1 patch DAILY PRN Administration Nicotine Craving Sodium Chloride 10 ml 12/13/22 17:00 12/14/22 08:48 Sodium Chloride Flush 0.9% 10 Ml Syringe IVP 10 ml 0100,0900,1700 HOWARD Administration - Lab Result Fish Bone Diagrams: 12/14/22 04:43 12/14/22 04:43 - Additional Planning My Orders: My Active Orders 12/13/22 15:00 Buprenorphine HCl/Naloxone HCl [Suboxone 8-2 mg Tab] 1 tab SL DAILY 12/13/22 16:02 Calcium Carbonate [Tums] 500 mg PO QID PRN 12/13/22 17:00 Sodium Chloride Flush 0.9% [Normal Saline Flush 0.9%] 10 ml IVP 0100,0900,1700 12/13/22 19:00 Vancomycin Inj [Vancomycin] 1 gm Vancomycin Inj [Vancomycin Hcl] 250 mg Sodium Chloride 0.9% [Normal Saline 0.9%] 250 ml IV Q12H 12/14/22 05:00 VITAMIN D 25-HYDROXY [REFLAB] Routine 12/14/22 09:00 cefTRIAXone [Rocephin] 1 gm Sodium Chloride 0.9% Minibag [Normal Saline 0.9% Minibag] 100 ml IV DAILY 12/14/22 10:19 Dietary [Nutrition Consult] [CONS] Routine 12/14/22 10:21 Echo Transthoracic Complete [ECHO] Routine 12/14/22 12:00 Cholecalciferol [Vitamin D3] 50 mcg PO DAILY Multivitamin W/Minerals [Theragran M] 1 tab PO DAILYWM 12/14/22 17:00 Insulin Lispro [Humalog Kwikpen U-100] 2 - 10 unit SUBQ 0800,1200,1700,2100 12/14/22 18:30 VANCOMYCIN TROUGH [CHEM] Timed 12/15/22 05:00 BMP - BASIC METABOLIC PANEL [CHEM] DAILYLAB CBC - COMP BLD CT W/AUTO DIFF [HEME] DAILYLAB 12/16/22 05:00 BMP - BASIC METABOLIC PANEL [CHEM] DAILYLAB CBC - COMP BLD CT W/AUTO DIFF [HEME] DAILYLAB 12/17/22 05:00 BMP - BASIC METABOLIC PANEL [CHEM] DAILYLAB CBC - COMP BLD CT W/AUTO DIFF [HEME] DAILYLAB Subjective - Subjective Patient Reports: Feeling Better (Has more energy, is hungry, denies pain where his left lower leg is red) Objective Vital Signs: Vital Signs - 24 hr 12/13/22 12/13/22 12/14/22 16:00 23:53 07:28 Temperature 36.4 C L 36.8 C 36.5 C Heart Rate [ 93 90 83 Brachial] Respiratory 16 18 18 Rate Blood Pressure 144/89 H 147/65 H 163/77 H [Right Brachial artery] O2 Saturation 97 97 95 Oxygen O2 Source Room air I&O (Last 24 Hrs): Intake and Output Totals x24h 12/12/22 12/13/22 12/14/22 23:59 23:59 23:59 Intake Total 4796 1674.917 Output Total 800 Balance 3996 1674.917 General: Alert, Oriented x3, Other (Disheveled) HEENT: Mucous membr. moist/pink, Other (Many missing and other teeth are half broken or have sharp points) Neck: Supple, No JVD Neuro: Alert, Non Focal Cardiovascular: Regular rate Respiratory: No respiratory distress Abdomen: Soft Extremities: No edema, Other (Redness between left ankle and left knee anteriorly and laterally, no edema, no warmth, minimally tender. Feet and toes are very dirty and unkempt.) - Results Results: Laboratory Results WBC 15.0 x10^3/uL (4.8-10.8) H 12/14/22 04:43 RBC 4.79 10^6/uL (4.70-6.10) 12/14/22 04:43 Hgb 13.3 g/dL (14.0-18.0) L 12/14/22 04:43 Hct 39.6 % (42.0-52.0) L 12/14/22 04:43 MCV 82.7 fL (80.0-94.0) 12/14/22 04:43 MCH 27.8 pg (27.0-31.0) 12/14/22 04:43 MCHC 33.6 g/dL (32.0-36.0) 12/14/22 04:43 RDW 12.7 % (12.0-15.0) 12/14/22 04:43 Plt Count 186 10^3/uL (130-450) 12/14/22 04:43 MPV 10.7 fL (7.4-11.4) 12/14/22 04:43 Neut # (Auto) 12.0 10^3/uL (1.5-6.6) H 12/14/22 04:43 Lymph # (Auto) 1.2 10^3/uL (1.5-3.5) L 12/14/22 04:43 [place] # (Auto) 1.5 10^3/uL (0.0-1.0) H 12/14/22 04:43 Eos # (Auto) 0.0 10^3/uL (0.0-0.7) 12/14/22 04:43 Baso # (Auto) 0.1 10^3/uL (0.0-0.1) 12/14/22 04:43 Absolute Nucleated RBC 0.00 x10^3/uL 12/14/22 04:43 Total Counted 100 12/12/22 23: Band Neuts % (Manual) 7 % (0-10) 12/12/22 23: Abnorm Lymph % (Manual) 0 % 12/12/22 23: Nucleated RBC % 0.0 /100WBC 12/14/22 04:43 Neutrophils # (Manual) 22.9 10^3/uL (1.5-6.6) H 12/12/22 23:31 Lymphocytes # (Manual) 1.2 10^3/uL (1.5-3.5) L 12/12/22 23: Monocytes # (Manual) 0.7 10^3/uL (0.0-1.0) 12/12/22 23:31 Eosinophils # (Manual) 0.0 10^3/uL (0-0.7) 12/12/22 23:31 Basophils # (Manual) 0.0 10^3/uL (0-0.1) 12/12/22 23: Differential Comment MANUAL DIFFERENTIAL 12/12/22 23: Platelet Estimate NORMAL (130-450,000) (NORMAL) 12/12/22 23: Platelet Morphology NORMAL APPEARANCE (NORMAL) 12/12/22 23: RBC Morph Micro Appear NORMAL APPEARANCE (NORMAL) 12/12/22 23: PT 11.9 secs (9.9-12.6) 12/12/22 23: INR 1.1 (0.8-1.2) 12/12/22 23: VBG pH 7.339 (7.31-7.41) 12/13/22 00:06 VBG pCO2 42.4 mmHg (41-51) 12/13/22 00:06 VBG pO2 27.0 mmHg (25-47) 12/13/22 00:06 VBG HCO3 22.3 mmol/L (23-28) L 12/13/22 00:06 VBG Total CO2 23.6 mmol/L (24-29) L 12/13/22 00:06 VBG O2 Saturation 53.0 % (60-80) L 12/13/22 00:06 VBG Base Excess -3.4 mmol/L (-2 - +2) L 12/13/22 00:06 Sodium 133 mmol/L (135-145) L 12/14/22 04:43 Potassium 3.8 mmol/L (3.5-4.5) 12/14/22 04:43 Chloride 101 mmol/L (101-111) 12/14/22 04:43 Carbon Dioxide 28 mmol/L (21-32) 12/14/22 04:43 Anion Gap 4.0 (6-13) L 12/14/22 04:43 BUN 22 mg/dL (6-20) H 12/14/22 04:43 Creatinine 0.7 mg/dL (0.6-1.3) 12/14/22 04:43 Estimated GFR (MDRD) 115 (>89) 12/14/22 04:43 Glucose 209 mg/dL (74-104) H 12/14/22 04:43 POC Whole Bld Glucose 210 mg/dL (70 - 100) H 12/14/22 11:10 Estimat Average Glucose 280 mg/dL (70-100) H 12/13/22 04:59 Hemoglobin A1c % 11.4 % (4.27-6.07) H 12/13/22 04:59 Lactic Acid 2.3 mmol/L (0.5-2.2) H 12/13/22 00:06 Calcium 8.4 mg/dL (8.5-10.3) L 12/14/22 04:43 Total Bilirubin 0.6 mg/dL (0.2-1.0) 12/13/22 04:59 AST 12 IU/L (10-42) 12/13/22 04:59 ALT 8 IU/L (10-60) L 12/13/22 04:59 Alkaline Phosphatase 80 IU/L (42-121) 12/13/22 04:59 Total Creatine Kinase 67 IU/L (22-269) 12/12/22 20:30 Troponin I High Sens 22.6 ng/L (2.3-19.7) H* 12/12/22 20:31 Total Protein 6.9 g/dL (6.4-8.9) 12/13/22 04:59 Albumin 3.6 g/dL (3.2-5.5) 12/13/22 04:59 Globulin 3.3 g/dL (2.1-4.2) 12/13/22 04:59 Albumin/Globulin Ratio 1.1 (1.0-2.2) 12/13/22 04:59 Lipase 21 U/L (22-51) L 12/12/22 23:31 Urine Color YELLOW 12/13/22 05:05 Urine Clarity CLEAR (CLEAR) 12/13/22 05:05 Urine pH 5.5 PH (5.0-7.5) 12/13/22 05:05 Ur Specific [place] 1.025 (1.002-1.030) 12/13/22 05:05 Urine Protein 100 mg/dL (NEGATIVE) H 12/13/22 05:05 Urine Glucose (UA) >=1000 mg/dL (NEGATIVE) H 12/13/22 05:05 Urine Ketones 40 mg/dL (NEGATIVE) H 12/13/22 05:05 Urine Occult Blood SMALL (NEGATIVE) H 12/13/22 05:05 Urine Nitrite NEGATIVE (NEGATIVE) 12/13/22 05:05 Urine Bilirubin NEGATIVE (NEGATIVE) 12/13/22 05:05 Urine Urobilinogen 0.2 (NORMAL) E.U./dL (NORMAL) 12/13/22 05:05 Ur Leukocyte Esterase NEGATIVE (NEGATIVE) 12/13/22 05:05 Urine RBC 0-5 /HPF (0-5) 12/13/22 05:05 Urine WBC 0-3 /HPF (0-3) 12/13/22 05:05 Ur Squamous Epith Cells RARE Squamous (<= Few) 12/13/22 05:05 Urine Bacteria None Seen /HPF (None Seen) 12/13/22 05:05 Ur Microscopic Review INDICATED 12/13/22 05:05 Urine Culture Comments NOT INDICATED 12/13/22 05:05 Nasal Adenovirus (PCR) NOT DETECTED 12/12/22 23:30 Nasal B. parapertussis DNA (PCR) NOT DETECTED 12/12/22 23:30 Nasal Coronavir 229E PCR NOT DETECTED 12/12/22 23:30 Nasal Coronavir HKU1 PCR NOT DETECTED 12/12/22 23:30 Nasal Coronavir NL63 PCR NOT DETECTED 12/12/22 23:30 Nasal Coronavir OC43 PCR NOT DETECTED 12/12/22 23:30 Nasal Enterovir/Rhinovir PCR NOT DETECTED 12/12/22 23:30 Nasal Influenza B PCR NOT DETECTED 12/12/22 23:30 Nasal Influenza A PCR NOT DETECTED 12/12/22 23:30 Nasal Parainfluen 1 PCR NOT DETECTED 12/12/22 23:30 Nasal Parainfluen 2 PCR NOT DETECTED 12/12/22 23:30 Nasal Parainfluen 3 PCR NOT DETECTED 12/12/22 23:30 Nasal Parainfluen 4 PCR NOT DETECTED 12/12/22 23:30 Nasal RSV (PCR) NOT DETECTED 12/12/22 23:30 Nasal B.pertussis DNA PCR NOT DETECTED 12/12/22 23:30 Nasal C.pneumoniae (PCR) NOT DETECTED 12/12/22 23:30 Donn Human Metapneumo PCR NOT DETECTED 12/12/22 23:30 Nasal M.pneumoniae (PCR) NOT DETECTED 12/12/22 23:30 Nasal SARS-CoV-2 (PCR) NOT DETECTED 12/12/22 23:30 Urine Opiates Screen NEGATIVE (NEGATIVE) 12/13/22 05:05 Ur Oxycodone Screen NEGATIVE (NEGATIVE) 12/13/22 05:05 Urine Methadone Screen NEGATIVE (NEGATIVE) 12/13/22 05:05 Ur Propoxyphene Screen NEGATIVE (NEGATIVE) 12/13/22 05:05 Ur Barbiturates Screen NEGATIVE (NEGATIVE) 12/13/22 05:05 Ur Tricyclics Screen NEGATIVE (NEGATIVE) 12/13/22 05:05 Ur Phencyclidine Scrn NEGATIVE (NEGATIVE) 12/13/22 05:05 Ur Amphetamine Screen NEGATIVE (NEGATIVE) 12/13/22 05:05 U Methamphetamines Scrn NEGATIVE (NEGATIVE) 12/13/22 05:05 U Benzodiazepines Scrn NEGATIVE (NEGATIVE) 12/13/22 05:05 Urine Cocaine Screen NEGATIVE (NEGATIVE) 12/13/22 05:05 U Cannabinoids Screen POSITIVE (NEGATIVE) H 12/13/22 05:05 Ethyl Alcohol < 10.0 mg/dL 12/12/22 23:31 Sepsis Event Note (H) - Evaluation Current Stage of Sepsis: Sepsis - Sepsis Criteria Sepsis Criteria: Recorded Heart Rate greater than 90 bpm, WBC count greater than 12,000 or less than 4000, Metabolic: lactate > 2 mmol/L
[2022-12-14] MEDS: metFORMIN 500 MG TABLET PO SCH (16:11)
[2022-12-14 18:43] LABS: VANCOMYCIN,TROUGH 9.5 ug/mL
[2022-12-14] MEDS: CALCIUM CARBONATE CHEW 500 MG TABLET PO PRN (21:04)
[2022-12-15 05:14] LABS: BASOPHILS % (AUTO) 0.3 %; EOSINOPHILS # (AUTO) 0.1 10^3/uL (0.0-0.7); EOSINOPHILS % (AUTO) 0.9 %; HCT - HEMATOCRIT 39.1 % (42.0-52.0); LYMPHOCYTES # (AUTO) 1.7 10^3/uL (1.5-3.5); LYMPHOCYTES % (AUTO) 13.5 %; MEAN CORPUSCULAR HGB CONC 33.2 g/dL (32.0-36.0); MEAN CORPUSCULAR VOLUME 84.1 fL (80.0-94.0); MEAN PLATELET VOLUME 10.5 fL (7.4-11.4); MONOCYTES # (AUTO) 1.3 10^3/uL (0.0-1.0); MONOCYTES % (AUTO) 10.2 %; NEUTROPHILS # (AUTO) 9.1 10^3/uL (1.5-6.6); NEUTROPHILS % (AUTO) 74.2 %; PLT - PLATELET COUNT 190 10^3/uL (130-450); RED BLOOD COUNT 4.65 10^6/uL (4.70-6.10); RED CELL DISTRIBUTION WIDTH 12.6 % (12.0-15.0); WHITE BLOOD COUNT 12.3 x10^3/uL (4.8-10.8)
[2022-12-15 05:29] LABS: CALCIUM 8.4 mg/dL (8.5-10.3); CREATININE 0.6 mg/dL (0.6-1.3); POTASSIUM 3.8 mmol/L (3.5-4.5)
[2022-12-15] MEDS: SODIUM CHLORIDE FLUSH 0.9% 10 ML SYRINGE IVP SCH ×3 (06:34→17:02)
[2022-12-15] MEDS: VANCOMYCIN INJ 1 GM, VANCOMYCIN INJ 250 MG in SODIUM CHLORIDE 0.9% 250 ML IV SCH (06:34)
[2022-12-15] MEDS: INSULIN LISPRO 300 UNIT/3 ML PEN SUBQ SCH ×4 (08:14→21:10)
[2022-12-15] MEDS: NICOTINE 14 MG PATCH TOP PRN (08:17)
[2022-12-15] MEDS: metFORMIN 500 MG TABLET PO SCH ×2 (08:18→17:02)
[2022-12-15] MEDS: MULTIVITAMIN W/MINERALS TABLET PO SCH (08:19)
[2022-12-15] MEDS: BUPRENORPHINE/NALOXONE 8-2 MG TAB SL SCH (08:19)
[2022-12-15] MEDS: CHOLECALCIFEROL 25 MCG TABLET PO SCH (08:20)
[2022-12-15] MEDS: ENOXAPARIN 40 MG/0.4 ML SYRINGE SUBQ SCH (08:21)
[2022-12-15] MEDS: cefTRIAXone 1 GM in SODIUM CHLORIDE 0.9% MINIBAG 100 ML IV SCH (08:22)
--- NOTE | 2022-12-15 10:12 | PHARMACY PROGRESS NOTE ---
- Therapy Status Vancomycin regimen day #: 3 Therapy status: Trough subtherapeutic Basis for treatment: Empirical Trough goal: 10-15 (12/14 18:00 - 9.5) Concurrent antibiotics: CEFTRIAXONE - TREVOR Risk Risk level for Acute Kidney Injury: Low Acute Kidney Injury risk factors: Diabetes - Monitoring and Recommendation Clinical response to treatment: I&O Previous 24 hours 12/13/22 12/14/22 12/15/22 23:59 23:59 23:59 Intake Total 4796 2627 474 Output Total 800 Balance 3996 2627 474 Lab Results 12/15/22 12/14/22 12/13/22 05:01 04:43 04:59 BUN 14 22 H 40 H Creatinine 0.6 0.7 0.9 Estimated GFR (MDRD) 138 115 86 L 12/12/22 23:31 BUN 49 H Creatinine 1.4 H Estimated GFR (MDRD) 52 L Vancomycin Monitoring 12/14/22 18:24 Vancomycin Trough 9.5 Cultures 12/13/22 00:06 Blood - Left Iv Start Blood Culture - Preliminary NO GROWTH AFTER 2 DAYS 12/13/22 00:06 Blood - Right Arm Blood Culture - Preliminary NO GROWTH AFTER 2 DAYS Monitoring plan: Daily serum creatinine Areas for additional monitoring: IV to PO when appropriate Pharmacy recommendation: Increase dose (DOSE INCREASED FROM 1250MG Q12H TO 1500MG Q12H TO ACHIEVE THERAPUTIC LEVELS)
--- NOTE | 2022-12-15 14:09 | PROVIDER PROGRESS NOTE ---
Assessment/Plan - Problem List (1) Cellulitis Qualifiers: Site of cellulitis: extremity Site of cellulitis of extremity: lower extremity Laterality: left Qualified Code(s): L03.116 - Cellulitis of left lower limb Assessment/Plan: He noticed the redness with minimal pain when he got out of bed recovering from nausea and vomiting of 3 days at home. At presentation he was fatigued, and had sepsis by labs and VS. Blood cultures were sent from ED and he was started on antibiotics empirically using IV ceftriaxone and IV Vanco WBC has improved from 24 at admission >> 12.3 today (all labs were reviewed. Plan: Will finish empiric IV ceftriaxone and IV Vanco. Will switch him to oral Cipro and Clindamycin, if bld cx are neg, since we have no wound cx results to base the antibx choice on Await bld cx results to tailor antibx Anticipate discharge soon Qualifiers: Site of cellulitis: extremity Site of cellulitis of extremity: lower extrem ity Laterality: left Qualified Code(s): L03.116 - Cellulitis of left lower limb (2) Diabetes mellitus w/ hyperglycemia Conclusion/Plan: Patient claimed he has not been on medicine for 5 years since the of his because he is so depressed and does not care about his sugar. He denies checking his fingersticks and denies following a diabetic diet. His A1c came back at 11 Dietitian Nurys saw him today, spoke to him about the importance, he agreed to restart metformin twice daily Plan: Cont diabetic diet,fingerstick checks, sliding scale insulin coverage, hypoglycemia protocol Cont new metformin 500 twice daily Qualifiers: Diabetes mellitus type: type 2 Diabetes mellitus chcf insulin use: without terminal gauger supervisor use Diabetes mellitus complication status: with hyperglycemia Qualified Code(s): E11.65 - Type 2 diabetes mellitus with hyperglycemia (3) Non compliance w medication regimen Conclusion/Plan: As above. Plan: As in #2 (4) Hx of congestive heart failure Conclusion/Plan: He denies any ROSS, PND, leg edema. He says he has not been on his cardiac meds for over a year. He also has no PCP. Plan: We are awaiting Echocardiogram to reevaluate his LVEF Currently he is not volume overloaded and VS are stable, no specific meds needed (5) Poor hygiene Conclusion/Plan: The patient admits he cannot take care of his lower extremities since he cannot bend his back Plan: Supportive care, shower while here, PT and OT evaluations I discussed with him that he will need an appointment to an outpatient Explosive Operator Fuse (6) Sepsis Conclusion/Plan: RESOLVED He is no longer tachycardic, the white blood count is improving as we are treating his cellulitis - Current Meds Current Meds: Current Medications Generic Name Dose Route Start Last Admin Trade Name Freq PRN Reason Stop Dose Admin Acetaminophen 650 mg 12/13/22 09:30 12/13/22 11:05 Acetaminophen 325 Mg Tablet PO 650 mg Q4HR PRN Administration Pain 1 to 4, or Fever Buprenorphine HCl 1 tab 12/13/22 15:00 12/15/22 08:19 Buprenorphine/Naloxone 8-2 Mg Tab SL 1 tab DAILY HOWARD Administration Calcium Carbonate/Glycine 500 mg 12/13/22 16:02 12/14/22 21:04 Calcium Carbonate Chew 500 Mg Tablet PO 500 mg QID PRN Administration Heartburn Cholecalciferol 50 mcg 12/14/22 12:00 12/15/22 08:20 Cholecalciferol 25 Mcg Tablet PO 50 mcg DAILY HOWARD Administration Enoxaparin Sodium 40 mg 12/13/22 10:00 12/15/22 08:21 Enoxaparin 40 Mg/0.4 Ml Syringe SUBQ 40 mg DAILY HOWARD Administration Ceftriaxone Sodium 1 gm/ 100 mls @ 200 mls/hr 12/14/22 09:00 12/15/22 08:55 Sodium Chloride IV Infused DAILY HOWARD Infusion Insulin Human Lispro 2 - 10 unit 12/14/22 17:00 12/15/22 11:50 Insulin Lispro 300 Unit/3 Ml Pen SUBQ 6 unit 0800,1200,1700,2100 HOWARD Administration Protocol Metformin HCl 500 mg 12/14/22 17:00 12/15/22 08:18 Metformin 500 Mg Tablet PO 500 mg BIDWM HOWARD Administration Multivitamins/Minerals 1 tab 12/14/22 12:00 12/15/22 08:19 Multivitamin W/Minerals Tablet PO 1 tab DAILYWM HOWARD Administration Nicotine 1 patch 12/13/22 10:29 12/15/22 08:17 Nicotine 14 Mg Patch TOP 1 patch DAILY PRN Administration Nicotine Craving Sodium Chloride 10 ml 12/13/22 17:00 12/15/22 10:30 Sodium Chloride Flush 0.9% 10 Ml Syringe IVP 10 ml 0100,0900,1700 HOWARD Administration - Lab Result Fish Bone Diagrams: 12/16/22 04:30 12/16/22 04:30 - Additional Planning My Orders: My Active Orders 12/14/22 17:00 Insulin Lispro [Humalog Kwikpen U-100] 2 - 10 unit SUBQ 0800,1200,1700,2100 metFORMIN [Glucophage] 500 mg PO BIDWM 12/14/22 18:24 VITAMIN D 25-HYDROXY [REFLAB] Routine 12/15/22 10:14 Shower [RC] ONCE 12/15/22 10:15 Miscellaenous Nursing Order [RC] QSHIFT 12/15/22 18:00 Vancomycin Inj [Vancomycin] 1 gm Vancomycin Inj [Vancomycin Hcl] 500 mg Sodium Chloride 0.9% [Normal Saline 0.9%] 250 ml IV Q12H 12/16/22 05:00 BMP - BASIC METABOLIC PANEL [CHEM] DAILYLAB CBC - COMP BLD CT W/AUTO DIFF [HEME] DAILYLAB 12/17/22 05:00 BMP - BASIC METABOLIC PANEL [CHEM] DAILYLAB CBC - COMP BLD CT W/AUTO DIFF [HEME] DAILYLAB Subjective - Subjective Patient Reports: Feeling Better (Able to walk with no pain, but feels nothing on feet, bottoms. Took a shower independantly today.) Objective Vital Signs: Vital Signs - 24 hr 12/14/22 12/14/22 12/15/22 16:00 23:41 07:36 Temperature 36.7 C 36.8 C 36.6 C Heart Rate [ 82 78 77 Brachial] Respiratory 16 18 18 Rate Blood Pressure 153/73 H 147/78 H 169/82 H [Right Brachial artery] O2 Saturation 95 97 97 Oxygen O2 Source Room air I&O (Last 24 Hrs): Intake and Output Totals x24h 12/13/22 12/14/22 12/15/22 23:59 23:59 23:59 Intake Total 4796 2627 1434 Output Total 800 Balance 3996 2627 1434 General: Alert, Oriented x3 HEENT: Mucous membr. moist/pink Neck: Supple Neuro: Alert, Other (decr sens plantar aspect of feet) Cardiovascular: Regular rate Respiratory: No respiratory distress Abdomen: Soft, No tenderness Extremities: No edema, Other (L leg redness receded at top end, feet are drty, scaly, long curled nails) - Results Results: Laboratory Results WBC 12.3 x10^3/uL (4.8-10.8) H 12/15/22 05:01 RBC 4.65 10^6/uL (4.70-6.10) L 12/15/22 05:01 Hgb 13.0 g/dL (14.0-18.0) L 12/15/22 05:01 Hct 39.1 % (42.0-52.0) L 12/15/22 05:01 MCV 84.1 fL (80.0-94.0) 12/15/22 05:01 MCH 28.0 pg (27.0-31.0) 12/15/22 05:01 MCHC 33.2 g/dL (32.0-36.0) 12/15/22 05:01 RDW 12.6 % (12.0-15.0) 12/15/22 05:01 Plt Count 190 10^3/uL (130-450) 12/15/22 05:01 MPV 10.5 fL (7.4-11.4) 12/15/22 05:01 Neut # (Auto) 9.1 10^3/uL (1.5-6.6) H 12/15/22 05:01 Lymph # (Auto) 1.7 10^3/uL (1.5-3.5) 12/15/22 05:01 Garrard # (Auto) 1.3 10^3/uL (0.0-1.0) H 12/15/22 05:01 Eos # (Auto) 0.1 10^3/uL (0.0-0.7) 12/15/22 05:01 Baso # (Auto) 0.0 10^3/uL (0.0-0.1) 12/15/22 05:01 Absolute Nucleated RBC 0.00 x10^3/uL 12/15/22 05:01 Total Counted 100 12/12/22 23:31 Band Neuts % (Manual) 7 % (0-10) 12/12/22 23:31 Abnorm Lymph % (Manual) 0 % 12/12/22 23:31 Nucleated RBC % 0.0 /100WBC 12/15/22 05:01 Neutrophils # (Manual) 22.9 10^3/uL (1.5-6.6) H 12/12/22 23:31 Lymphocytes # (Manual) 1.2 10^3/uL (1.5-3.5) L 12/12/22 23:31 Monocytes # (Manual) 0.7 10^3/uL (0.0-1.0) 12/12/22 23: Eosinophils # (Manual) 0.0 10^3/uL (0-0.7) 12/12/22 23: Basophils # (Manual) 0.0 10^3/uL (0-0.1) 12/12/22 23: Differential Comment MANUAL DIFFERENTIAL 12/12/22: Platelet Estimate NORMAL (130-450,000) (NORMAL) 12/12/22 23: Platelet Morphology NORMAL APPEARANCE (NORMAL) 12/12/22 23: RBC Morph Micro Appear NORMAL APPEARANCE (NORMAL) 12/12/22 23: PT 11.9 secs (9.9-12.6) 12/12/22 23: INR 1.1 (0.8-1.2) 12/12/22 23: VBG pH 7.339 (7.31-7.41) 12/13/22 00:06 VBG pCO2 42.4 mmHg (41-51) 12/13/22 00:06 VBG pO2 27.0 mmHg (25-47) 12/13/22 00:06 VBG HCO3 22.3 mmol/L (23-28) L 12/13/22 00:06 VBG Total CO2 23.6 mmol/L (24-29) L 12/13/22 00:06 VBG O2 Saturation 53.0 % (60-80) L 12/13/22 00:06 VBG Base Excess -3.4 mmol/L (-2 - +2) L 12/13/22 00:06 Sodium 132 mmol/L (135-145) L 12/15/22 05:01 Potassium 3.8 mmol/L (3.5-4.5) 12/15/22 05:01 Chloride 101 mmol/L (101-111) 12/15/22 05:01 Carbon Dioxide 27 mmol/L (21-32) 12/15/22 05:01 Anion Gap 4.0 (6-13) L 12/15/22 05:01 BUN 14 mg/dL (6-20) 12/15/22 05:01 Creatinine 0.6 mg/dL (0.6-1.3) 12/15/22 05:01 Estimated GFR (MDRD) 138 (>89) 12/15/22 05:01 Glucose 193 mg/dL (74-104) H 12/15/22 05:01 POC Whole Bld Glucose 239 mg/dL (70 - 100) H 12/15/22 11:27 Estimat Average Glucose 280 mg/dL (70-100) H 12/13/22 04:59 Hemoglobin A1c % 11.4 % (4.27-6.07) H 12/13/22 04:59 Lactic Acid 2.3 mmol/L (0.5-2.2) H 12/13/22 00:06 Calcium 8.4 mg/dL (8.5-10.3) L 12/15/22 05:01 Total Bilirubin 0.6 mg/dL (0.2-1.0) 12/13/22 04:59 AST 12 IU/L (10-42) 12/13/22 04:59 ALT 8 IU/L (10-60) L 12/13/22 04:59 Alkaline Phosphatase 80 IU/L (42-121) 12/13/22 04:59 Total Creatine Kinase 67 IU/L (22-269) 12/12/22 20:30 Troponin I High Sens 22.6 ng/L (2.3-19.7) H* 12/12/22 20:31 Total Protein 6.9 g/dL (6.4-8.9) 12/13/22 04:59 Albumin 3.6 g/dL (3.2-5.5) 12/13/22 04:59 Globulin 3.3 g/dL (2.1-4.2) 12/13/22 04:59 Albumin/Globulin Ratio 1.1 (1.0-2.2) 12/13/22 04:59 Lipase 21 U/L (22-51) L 12/12/22 23:31 Urine Color YELLOW 12/13/22 05:05 Urine Clarity CLEAR (CLEAR) 12/13/22 05:05 Urine pH 5.5 PH (5.0-7.5) 12/13/22 05:05 Ur Specific Castor 1.025 (1.002-1.030) 12/13/22 05:05 Urine Protein 100 mg/dL (NEGATIVE) H 12/13/22 05:05 Urine Glucose (UA) >=1000 mg/dL (NEGATIVE) H 12/13/22 05:05 Urine Ketones 40 mg/dL (NEGATIVE) H 12/13/22 05:05 Urine Occult Blood SMALL (NEGATIVE) H 12/13/22 05:05 Urine Nitrite NEGATIVE (NEGATIVE) 12/13/22 05:05 Urine Bilirubin NEGATIVE (NEGATIVE) 12/13/22 05:05 Urine Urobilinogen 0.2 (NORMAL) E.U./dL (NORMAL) 12/13/22 05:05 Ur Leukocyte Esterase NEGATIVE (NEGATIVE) 12/13/22 05:05 Urine RBC 0-5 /HPF (0-5) 12/13/22 05:05 Urine WBC 0-3 /HPF (0-3) 12/13/22 05:05 Ur Squamous Epith Cells RARE Squamous (<= Few) 12/13/22 05:05 Urine Bacteria None Seen /HPF (None Seen) 12/13/22 05:05 Ur Microscopic Review INDICATED 12/13/22 05:05 Urine Culture Comments NOT INDICATED 12/13/22 05:05 Nasal Adenovirus (PCR) NOT DETECTED 12/12/22 23:30 Nasal B. parapertussis DNA (PCR) NOT DETECTED 12/12/22 23:30 Nasal Coronavir 229E PCR NOT DETECTED 12/12/22 23:30 Nasal Coronavir HKU1 PCR NOT DETECTED 12/12/22 23:30 Nasal Coronavir NL63 PCR NOT DETECTED 12/12/22 23:30 Nasal Coronavir OC43 PCR NOT DETECTED 12/12/22 23:30 Nasal Enterovir/Rhinovir PCR NOT DETECTED 12/12/22 23:30 Nasal Influenza B PCR NOT DETECTED 12/12/22 23:30 Nasal Influenza A PCR NOT DETECTED 12/12/22 23:30 Nasal Parainfluen 1 PCR NOT DETECTED 12/12/22 23:30 Nasal Parainfluen 2 PCR NOT DETECTED 12/12/22 23:30 Nasal Parainfluen 3 PCR NOT DETECTED 12/12/22 23:30 Nasal Parainfluen 4 PCR NOT DETECTED 12/12/22 23:30 Nasal RSV (PCR) NOT DETECTED 12/12/22 23:30 Nasal B.pertussis DNA PCR NOT DETECTED 12/12/22 23:30 Nasal C.pneumoniae (PCR) NOT DETECTED 12/12/22 23:30 Donn Human Metapneumo PCR NOT DETECTED 12/12/22 23:30 Nasal M.pneumoniae (PCR) NOT DETECTED 12/12/22 23:30 Nasal SARS-CoV-2 (PCR) NOT DETECTED 12/12/22 23:30 Last Dose Date 12/14/2022 12/14/22 18:24 Last Dose Time 80912/14/22 18:24 Vancomycin Trough 9.5 ug/mL 12/14/22 18:24 Urine Opiates Screen NEGATIVE (NEGATIVE) 12/13/22 05:05 Ur Oxycodone Screen NEGATIVE (NEGATIVE) 12/13/22 05:05 Urine Methadone Screen NEGATIVE (NEGATIVE) 12/13/22 05:05 Ur Propoxyphene Screen NEGATIVE (NEGATIVE) 12/13/22 05:05 Ur Barbiturates Screen NEGATIVE (NEGATIVE) 12/13/22 05:05 Ur Tricyclics Screen NEGATIVE (NEGATIVE) 12/13/22 05:05 Ur Phencyclidine Scrn NEGATIVE (NEGATIVE) 12/13/22 05:05 Ur Amphetamine Screen NEGATIVE (NEGATIVE) 12/13/22 05:05 U Methamphetamines Scrn NEGATIVE (NEGATIVE) 12/13/22 05:05 U Benzodiazepines Scrn NEGATIVE (NEGATIVE) 12/13/22 05:05 Urine Cocaine Screen NEGATIVE (NEGATIVE) 12/13/22 05:05 U Cannabinoids Screen POSITIVE (NEGATIVE) H 12/13/22 05:05 Ethyl Alcohol < 10.0 mg/dL 12/12/22 23:31 Sepsis Event Note (H) - Evaluation Current Stage of Sepsis: Sepsis - Sepsis Criteria Sepsis Criteria: Recorded Heart Rate greater than 90 bpm, WBC count greater than 12,000 or less than 4000, Metabolic: lactate > 2 mmol/L
[2022-12-15] MEDS ORDERED: VANCOMYCIN INJ 1 GM, VANCOMYCIN INJ 500 MG in SODIUM CHLORIDE 0.9% 500 ML IV SCH (18:00)
[2022-12-15] MEDS: CLINDAMYCIN 150 MG CAPSULE PO SCH (21:10)
[2022-12-16] MEDS: SODIUM CHLORIDE FLUSH 0.9% 10 ML SYRINGE IVP SCH ×4 (01:03→23:41)
[2022-12-16 05:08] LABS: BASOPHILS % (AUTO) 0.4 %; EOSINOPHILS # (AUTO) 0.2 10^3/uL (0.0-0.7); EOSINOPHILS % (AUTO) 1.4 %; HCT - HEMATOCRIT 37.7 % (42.0-52.0); HGB - HEMOGLOBIN 12.4 g/dL (14.0-18.0); LYMPHOCYTES # (AUTO) 1.7 10^3/uL (1.5-3.5); LYMPHOCYTES % (AUTO) 15.8 %; MEAN CORPUSCULAR HEMOGLOBIN 27.7 pg (27.0-31.0); MEAN CORPUSCULAR HGB CONC 32.9 g/dL (32.0-36.0); MEAN CORPUSCULAR VOLUME 84.2 fL (80.0-94.0); MEAN PLATELET VOLUME 10.5 fL (7.4-11.4); MONOCYTES # (AUTO) 1.2 10^3/uL (0.0-1.0); MONOCYTES % (AUTO) 11.6 %; NEUTROPHILS # (AUTO) 7.4 10^3/uL (1.5-6.6); NEUTROPHILS % (AUTO) 69.2 %; PLT - PLATELET COUNT 231 10^3/uL (130-450); RED BLOOD COUNT 4.48 10^6/uL (4.70-6.10); RED CELL DISTRIBUTION WIDTH 12.6 % (12.0-15.0); WHITE BLOOD COUNT 10.7 x10^3/uL (4.8-10.8)
[2022-12-16 05:26] LABS: CALCIUM 8.4 mg/dL (8.5-10.3); CREATININE 0.6 mg/dL (0.6-1.3)
[2022-12-16] MEDS: CLINDAMYCIN 150 MG CAPSULE PO SCH ×3 (05:51→21:04)
[2022-12-16] MEDS ORDERED: cefTRIAXone 1 GM in SODIUM CHLORIDE 0.9% MINIBAG 100 ML IV SCH (07:46)
[2022-12-16] MEDS ORDERED: VANCOMYCIN INJ 1 GM, VANCOMYCIN INJ 500 MG in SODIUM CHLORIDE 0.9% 500 ML IV SCH (08:00)
[2022-12-16] MEDS: MULTIVITAMIN W/MINERALS TABLET PO SCH (08:15)
[2022-12-16] MEDS: BUPRENORPHINE/NALOXONE 8-2 MG TAB SL SCH (08:15)
[2022-12-16] MEDS: metFORMIN 500 MG TABLET PO SCH ×2 (08:15→16:59)
[2022-12-16] MEDS: CHOLECALCIFEROL 25 MCG TABLET PO SCH ×2 (08:15→08:21)
[2022-12-16] MEDS: INSULIN LISPRO 300 UNIT/3 ML PEN SUBQ SCH ×4 (08:23→21:04)
[2022-12-16] MEDS: cefTRIAXone 1 GM in SODIUM CHLORIDE 0.9% MINIBAG 100 ML IV SCH (08:25)
[2022-12-16] MEDS: ENOXAPARIN 40 MG/0.4 ML SYRINGE SUBQ SCH (08:26)
[2022-12-16] MEDS: NICOTINE 14 MG PATCH TOP PRN (08:32)
[2022-12-16] MEDS: CIPROFLOXACIN 250 MG TABLET PO SCH ×2 (11:04→21:04)
--- NOTE | 2022-12-16 19:11 | PROVIDER PROGRESS NOTE ---
Assessment/Plan - Problem List (1) Cellulitis Qualifiers: Site of cellulitis: extremity Site of cellulitis of extremity: lower extremity Laterality: left Qualified Code(s): L03.116 - Cellulitis of left lower limb Assessment/Plan: He noticed left lower leg redness with minimal pain when he got out of bed recovering from nausea and vomiting of 3 days at home. At presentation he was lethargic, and had sepsis by labs and VS. Blood cultures were sent from ED and he was started on antibiotics empirically using IV ceftriaxone and IV Vanco. Blood cx are neg to date. WBC has improved from 24 at admission >> 20 yesterday >> 15 >> 10.7 today (all labs were reviewed). I stopped his empiric IV ceftriaxone and IV Vanco yesterday and switched to oral antibx Plan: Cont empiric oral Cipro and Clinda, since bld cx are neg, and since we have no wound cx results to base the antibx choice on Anticipate discharge tomorrow (pending surgery consult, see #2) Qualifiers: Site of cellulitis: extremity Site of cellulitis of extremity: lower extremity Laterality: left Qualified Code(s): L03.116 - Cellulitis of left lower limb (2) Diabetic foot wound Conclusion/Plan: Today RN noticed he has 2 wounds on L foot. They were not seen at admission, not until after he took a shower yesterday afternoon. One is a deep crevice on plantar side at base of L great toe, encircling toe about 180 degrees. The other is a round skin tear at the L medial ankle. I examined these area. Both have deep openings, red at base, yellow (?pussy) borders, and both are draining. Plan: Aerobic and anaerobic cultures of both areas was ordered and taken by his RN Shania and sent to lab. I contacted Wound Clinic and learned that Dr Dalton left today for a 4 week vacation and no other wound clinic staff is present during those 4 weeks. I contacted today's Gen Surgeon and requested a consult of Dr Adolfo Salinas, asking if debridement is indicated. He will see the patient after his clinic hours today. No discharge until we have surgical opinion re: debridement and wound care recommendation also. (3) Diabetes mellitus w/ hyperglycemia Conclusion/Plan: Patient claimed he has not been on medicine for 5 years since the of his because he is so depressed and does not care about his sugar. He denies checking his fingersticks and denies following a diabetic diet. His A1c came back at 11 Dietitian Nurys saw him in consult, spoke to him about the importance, he agreed to restart metformin twice daily Plan: Cont diabetic diet,fingerstick checks, sliding scale insulin coverage, hypoglycemia protocol Cont new metformin 500 twice daily Qualifiers: Diabetes mellitus type: type 2 Diabetes mellitus correction insulin use: without correction use Diabetes mellitus complication status: with hyperglycemia Qualified Code(s): E11.65 - Type 2 diabetes mellitus with hyperglycemia (4) Non compliance w medication regimen Conclusion/Plan: As above. Plan: As in #3 (5) Hx of congestive heart failure Conclusion/Plan: He denies any ROSS, PND, leg edema. He says he has not been on his cardiac meds for over a year. He also has no PCP. Echocardiogram was done to reevaluate his LVEF. Plan: Currently he is not volume overloaded and VS are stable, no specific meds needed (6) Poor hygiene Conclusion/Plan: The patient admits he cannot take care of his lower extremities since he cannot bend his back Plan: Supportive care, shower while here again if needed, PT and OT evaluations I discussed with him that he will need an appointment to an outpatient Thermostat Machine Tender (7) Sepsis Conclusion/Plan: RESOLVED He is no longer tachycardic, the white blood count is improving as we are treating his cellulitis - Current Meds Current Meds: Current Medications Generic Name Dose Route Start Last Admin Trade Name Caitlin PRN Reason Stop Dose Admin Acetaminophen 650 mg 12/13/22 09:30 12/13/22 11:05 Acetaminophen 325 Mg Tablet PO 650 mg Q4HR PRN Administration Pain 1 to 4, or Fever Buprenorphine HCl 1 tab 12/13/22 15:00 12/16/22 08:15 Buprenorphine/Naloxone 8-2 Mg Tab SL 1 tab DAILY HOWARD Administration Calcium Carbonate/Glycine 500 mg 12/13/22 16:02 12/14/22 21:04 Calcium Carbonate Chew 500 Mg Tablet PO 500 mg QID PRN Administration Heartburn Cholecalciferol 50 mcg 12/14/22 12:00 12/16/22 08:21 Cholecalciferol 25 Mcg Tablet PO 50 mcg DAILY HOWARD Administration Ciprofloxacin 500 mg 12/16/22 09:09 12/16/22 11:04 Ciprofloxacin 250 Mg Tablet PO 500 mg BID HOWARD Administration Clindamycin HCl 300 mg 12/15/22 22:00 12/16/22 14:26 Clindamycin 150 Mg Capsule PO 300 mg TID HOWARD Administration Enoxaparin Sodium 40 mg 12/13/22 10:00 12/16/22 08:26 Enoxaparin 40 Mg/0.4 Ml Syringe SUBQ 40 mg DAILY HOWARD Administration Ceftriaxone Sodium 1 gm/ 100 mls @ 200 mls/hr 12/16/22 07:55 12/16/22 08:55 Sodium Chloride IV Infused DAILY HOWARD Infusion Insulin Human Lispro 2 - 10 unit 12/14/22 17:00 12/16/22 16:53 Insulin Lispro 300 Unit/3 Ml Pen SUBQ 4 unit 0800,1200,1700,2100 [facility] Administration Protocol Metformin HCl 500 mg 12/14/22 17:00 12/16/22 16:59 Metformin 500 Mg Tablet PO 500 mg BIDWM HOWARD Administration Multivitamins/Minerals 1 tab 12/14/22 12:00 12/16/22 08:15 Multivitamin W/Minerals Tablet PO 1 tab DAILYWM HOWARD Administration Nicotine 1 patch 12/13/22 10:29 12/16/22 08:32 Nicotine 14 Mg Patch TOP 1 patch DAILY PRN Administration Nicotine Craving Sodium Chloride 10 ml 12/13/22 17:00 12/16/22 15:51 Sodium Chloride Flush 0.9% 10 Ml Syringe IVP 10 ml 0100,0900,1700 HOWARD Administration - Lab Result Fish Bone Diagrams: 12/16/22 04:30 12/16/22 04:30 - Additional Planning My Orders: My Active Orders 12/15/22 22:00 Clindamycin [Cleocin] 300 mg PO TID 12/16/22 Consult [General Surgery Consult] [CONS] Routine 12/16/22 07:55 cefTRIAXone [Rocephin] 1 gm Sodium Chloride 0.9% Minibag [Normal Saline 0.9% Minibag] 100 ml IV DAILY 12/16/22 09:09 Ciprofloxacin [Cipro] 500 mg PO BID 12/16/22 12:25 ANAEROBIC AND AEROBIC CULTURE [REFLAB] Stat ANAEROBIC AND AEROBIC CULTURE [REFLAB] Stat 12/17/22 05:00 BMP - BASIC METABOLIC PANEL [CHEM] DAILYLAB CBC - COMP BLD CT W/AUTO DIFF [HEME] DAILYLAB Subjective - Subjective Patient Reports: Feeling Better (Has energy, is motivated to use Metformin) Objective Vital Signs: Vital Signs - 24 hr 12/16/22 12/16/22 12/16/22 00:54 08:00 08:59 Temperature 37.0 C 36.6 C 37.1 C Heart Rate [ 97 80 Brachial] Heart Rate [ 66 Monitoring electrodes] Respiratory 20 20 15 Rate Blood Pressure 146/93 H 178/94 H 113/79 [Right Brachial artery] O2 Saturation 96 99 99 12/16/22 15:43 Temperature 37.0 C Heart Rate [ 78 Brachial] Heart Rate [ Monitoring electrodes] Respiratory 20 Rate Blood Pressure 136/84 H [Right Brachial artery] O2 Saturation 97 Oxygen O2 Source Room air I&O (Last 24 Hrs): Intake and Output Totals x24h 12/14/22 12/15/22 12/16/22 23:59 23:59 23:59 Intake Total 262 3654 670 Balance 2621 3651 670 General: Alert, Oriented x3 HEENT: Atraumatic, Other (Poor dentition) Neck: Supple, No JVD Neuro: Alert, Other (Decreased sensation on plantar side of feet) Cardiovascular: Regular rate Respiratory: No respiratory distress Abdomen: Soft Extremities: Other (L sauceda redness has decreased at upper section. L great toe has a deep crevice wound, at its base, extends 180 degrees around toe, crevice is red, borders are yellow, and has drainage. L medial ankle has a small round red shallow skin tear, also draining.) - Results Results: Laboratory Results WBC 10.7 x10^3/uL (4.8-10.8) 12/16/22 04:30 RBC 4.48 10^6/uL (4.70-6.10) L 12/16/22 04:30 Hgb 12.4 g/dL (14.0-18.0) L 12/16/22 04:30 Hct 37.7 % (42.0-52.0) L 12/16/22 04:30 MCV 84.2 fL (80.0-94.0) 12/16/22 04:30 MCH 27.7 pg (27.0-31.0) 12/16/22 04:30 MCHC 32.9 g/dL (32.0-36.0) 12/16/22 04:30 RDW 12.6 % (12.0-15.0) 12/16/22 04:30 Plt Count 231 10^3/uL (130-450) 12/16/22 04:30 MPV 10.5 fL (7.4-11.4) 12/16/22 04:30 Neut # (Auto) 7.4 10^3/uL (1.5-6.6) H 12/16/22 04:30 Lymph # (Auto) 1.7 10^3/uL (1.5-3.5) 12/16/22 04:30 Marin # (Auto) 1.2 10^3/uL (0.0-1.0) H 12/16/22 04:30 Eos # (Auto) 0.2 10^3/uL (0.0-0.7) 12/16/22 04:30 Baso # (Auto) 0.0 10^3/uL (0.0-0.1) 12/16/22 04:30 Absolute Nucleated RBC 0.00 x10^3/uL 12/16/22 04:30 Total Counted 100 12/12/22 23:31 Band Neuts % (Manual) 7 % (0-10) 12/12/22 23:31 Abnorm Lymph % (Manual) 0 % 12/12/22 23:31 Nucleated RBC % 0.0 /100WBC 12/16/22 04:30 Neutrophils # (Manual) 22.9 10^3/uL (1.5-6.6) H 12/12/22 23:31 Lymphocytes # (Manual) 1.2 10^3/uL (1.5-3.5) L 12/12/22 23:31 Monocytes # (Manual) 0.7 10^3/uL (0.0-1.0) 12/12/22 23:31 Eosinophils # (Manual) 0.0 10^3/uL (0-0.7) 12/12/22 23:31 Basophils # (Manual) 0.0 10^3/uL (0-0.1) 12/12/22 23:31 Differential Comment MANUAL DIFFERENTIAL 12/12/22 23:31 Platelet Estimate NORMAL (130-450,000) (NORMAL) 12/12/22 23:31 Platelet Morphology NORMAL APPEARANCE (NORMAL) 12/12/22 23:31 RBC Morph Micro Appear NORMAL APPEARANCE (NORMAL) 12/12/22 23:31 PT 11.9 secs (9.9-12.6) 12/12/22 23:31 INR 1.1 (0.8-1.2) 12/12/22 23:31 VBG pH 7.339 (7.31-7.41) 12/13/22 00:06 VBG pCO2 42.4 mmHg (41-51) 12/13/22 00:06 VBG pO2 27.0 mmHg (25-47) 12/13/22 00:06 VBG HCO3 22.3 mmol/L (23-28) L 12/13/22 00:06 VBG Total CO2 23.6 mmol/L (24-29) L 12/13/22 00:06 VBG O2 Saturation 53.0 % (60-80) L 12/13/22 00:06 VBG Base Excess -3.4 mmol/L (-2 - +2) L 12/13/22 00:06 Sodium 132 mmol/L (135-145) L 12/16/22 04:30 Potassium 4.0 mmol/L (3.5-4.5) 12/16/22 04:30 Chloride 100 mmol/L (101-111) L 12/16/22 04:30 Carbon Dioxide 28 mmol/L (21-32) 12/16/22 04:30 Anion Gap 4.0 (6-13) L 12/16/22 04:30 BUN 12 mg/dL (6-20) 12/16/22 04:30 Creatinine 0.6 mg/dL (0.6-1.3) 12/16/22 04:30 Estimated GFR (MDRD) 138 (>89) 12/16/22 04:30 Glucose 231 mg/dL (74-104) H 12/16/22 04:30 POC Whole Bld Glucose 189 mg/dL (70 - 100) H 12/16/22 16:28 Estimat Average Glucose 280 mg/dL (70-100) H 12/13/22 04:59 Hemoglobin A1c % 11.4 % (4.27-6.07) H 12/13/22 04:59 Lactic Acid 2.3 mmol/L (0.5-2.2) H 12/13/22 00:06 Calcium 8.4 mg/dL (8.5-10.3) L 12/16/22 04:30 Total Bilirubin 0.6 mg/dL (0.2-1.0) 12/13/22 04:59 AST 12 IU/L (10-42) 12/13/22 04:59 ALT 8 IU/L (10-60) L 12/13/22 04:59 Alkaline Phosphatase 80 IU/L (42-121) 12/13/22 04:59 Total Creatine Kinase 67 IU/L (22-269) 12/12/22 20:30 Troponin I High Sens 22.6 ng/L (2.3-19.7) H* 12/12/22 20:31 Total Protein 6.9 g/dL (6.4-8.9) 12/13/22 04:59 Albumin 3.6 g/dL (3.2-5.5) 12/13/22 04:59 Globulin 3.3 g/dL (2.1-4.2) 12/13/22 04:59 Albumin/Globulin Ratio 1.1 (1.0-2.2) 12/13/22 04:59 Lipase 21 U/L (22-51) L 12/12/22 23:31 Vitamin D 25-Hydroxy <4.0 ng/mL (30.0-100.0) L 12/14/22 18:24 Urine Color YELLOW 12/13/22 05:05 Urine Clarity CLEAR (CLEAR) 12/13/22 05:05 Urine pH 5.5 PH (5.0-7.5) 12/13/22 05:05 Ur Specific [place] 1.025 (1.002-1.030) 12/13/22 05:05 Urine Protein 100 mg/dL (NEGATIVE) H 12/13/22 05:05 Urine Glucose (UA) >=1000 mg/dL (NEGATIVE) H 12/13/22 05:05 Urine Ketones 40 mg/dL (NEGATIVE) H 12/13/22 05:05 Urine Occult Blood SMALL (NEGATIVE) H 12/13/22 05:05 Urine Nitrite NEGATIVE (NEGATIVE) 12/13/22 05:05 Urine Bilirubin NEGATIVE (NEGATIVE) 12/13/22 05:05 Urine Urobilinogen 0.2 (NORMAL) E.U./dL (NORMAL) 12/13/22 05:05 Ur Leukocyte Esterase NEGATIVE (NEGATIVE) 12/13/22 05:05 Urine RBC 0-5 /HPF (0-5) 12/13/22 05:05 Urine WBC 0-3 /HPF (0-3) 12/13/22 05:05 Ur Squamous Epith Cells RARE Squamous (<= Few) 12/13/22 05:05 Urine Bacteria None Seen /HPF (None Seen) 12/13/22 05:05 Ur Microscopic Review INDICATED 12/13/22 05:05 Urine Culture Comments NOT INDICATED 12/13/22 05:05 Nasal Adenovirus (PCR) NOT DETECTED 12/12/22 23:30 Nasal B. parapertussis DNA (PCR) NOT DETECTED 12/12/22 23:30 Nasal Coronavir 229E PCR NOT DETECTED 12/12/22 23:30 Nasal Coronavir HKU1 PCR NOT DETECTED 12/12/22 23:30 Nasal Coronavir NL63 PCR NOT DETECTED 12/12/22 23:30 Nasal Coronavir OC43 PCR NOT DETECTED 12/12/22 23:30 Nasal Enterovir/Rhinovir PCR NOT DETECTED 12/12/22 23:30 Nasal Influenza B PCR NOT DETECTED 12/12/22 23:30 Nasal Influenza A PCR NOT DETECTED 12/12/22 23:30 Nasal Parainfluen 1 PCR NOT DETECTED 12/12/22 23:30 Nasal Parainfluen 2 PCR NOT DETECTED 12/12/22 23:30 Nasal Parainfluen 3 PCR NOT DETECTED 12/12/22 23:30 Nasal Parainfluen 4 PCR NOT DETECTED 12/12/22 23:30 Nasal RSV (PCR) NOT DETECTED 12/12/22 23:30 Nasal B.pertussis DNA PCR NOT DETECTED 12/12/22 23:30 Nasal C.pneumoniae (PCR) NOT DETECTED 12/12/22 23:30 Donn Human Metapneumo PCR NOT DETECTED 12/12/22 23:30 Nasal M.pneumoniae (PCR) NOT DETECTED 12/12/22 23:30 Nasal SARS-CoV-2 (PCR) NOT DETECTED 12/12/22 23:30 Last Dose Date 12/14/2022 12/14/22 18:24 Last Dose Time 0810 12/14/22 18:24 Vancomycin Trough 9.5 ug/mL 12/14/22 18:24 Urine Opiates Screen NEGATIVE (NEGATIVE) 12/13/22 05:05 Ur Oxycodone Screen NEGATIVE (NEGATIVE) 12/13/22 05:05 Urine Methadone Screen NEGATIVE (NEGATIVE) 12/13/22 05:05 Ur Propoxyphene Screen NEGATIVE (NEGATIVE) 12/13/22 05:05 Ur Barbiturates Screen NEGATIVE (NEGATIVE) 12/13/22 05:05 Ur Tricyclics Screen NEGATIVE (NEGATIVE) 12/13/22 05:05 Ur Phencyclidine Scrn NEGATIVE (NEGATIVE) 12/13/22 05:05 Ur Amphetamine Screen NEGATIVE (NEGATIVE) 12/13/22 05:05 U Methamphetamines Scrn NEGATIVE (NEGATIVE) 12/13/22 05:05 U Benzodiazepines Scrn NEGATIVE (NEGATIVE) 12/13/22 05:05 Urine Cocaine Screen NEGATIVE (NEGATIVE) 12/13/22 05:05 U Cannabinoids Screen POSITIVE (NEGATIVE) H 12/13/22 05:05 Ethyl Alcohol < 10.0 mg/dL 12/12/22 23:31 Sepsis Event Note (H) - Evaluation Current Stage of Sepsis: Sepsis - Sepsis Criteria Sepsis Criteria: Recorded Heart Rate greater than 90 bpm, WBC count greater than 12,000 or less than 4000, Metabolic: lactate > 2 mmol/L
[2022-12-17 05:14] LABS: BASOPHILS # (AUTO) 0.1 10^3/uL (0.0-0.1); BASOPHILS % (AUTO) 0.7 %; EOSINOPHILS # (AUTO) 0.2 10^3/uL (0.0-0.7); EOSINOPHILS % (AUTO) 2.5 %; HCT - HEMATOCRIT 39.5 % (42.0-52.0); HGB - HEMOGLOBIN 13.1 g/dL (14.0-18.0); LYMPHOCYTES # (AUTO) 1.7 10^3/uL (1.5-3.5); LYMPHOCYTES % (AUTO) 18.2 %; MEAN CORPUSCULAR HEMOGLOBIN 27.9 pg (27.0-31.0); MEAN CORPUSCULAR HGB CONC 33.2 g/dL (32.0-36.0); MEAN PLATELET VOLUME 10.1 fL (7.4-11.4); MONOCYTES # (AUTO) 1.1 10^3/uL (0.0-1.0); MONOCYTES % (AUTO) 12.4 %; NEUTROPHILS # (AUTO) 5.9 10^3/uL (1.5-6.6); NEUTROPHILS % (AUTO) 63.9 %; PLT - PLATELET COUNT 300 10^3/uL (130-450); RED CELL DISTRIBUTION WIDTH 12.7 % (12.0-15.0); WHITE BLOOD COUNT 9.2 x10^3/uL (4.8-10.8)
[2022-12-17 05:24] LABS: CALCIUM 8.9 mg/dL (8.5-10.3); CREATININE 0.7 mg/dL (0.6-1.3); POTASSIUM 4.2 mmol/L (3.5-4.5)
[2022-12-17] MEDS: CLINDAMYCIN 150 MG CAPSULE PO SCH ×2 (06:35→14:16)
[2022-12-17] MEDS ORDERED: ERGOCALCIFEROL 50,000 UNIT CAPSULE PO ONE (07:58)
[2022-12-17] MEDS: MULTIVITAMIN W/MINERALS TABLET PO SCH (08:08)
[2022-12-17] MEDS: BUPRENORPHINE/NALOXONE 8-2 MG TAB SL SCH (08:08)
[2022-12-17] MEDS: metFORMIN 500 MG TABLET PO SCH (08:09)
[2022-12-17] MEDS: CHOLECALCIFEROL 25 MCG TABLET PO SCH (08:09)
[2022-12-17] MEDS: cefTRIAXone 1 GM in SODIUM CHLORIDE 0.9% MINIBAG 100 ML IV SCH (08:09)
[2022-12-17] MEDS: CIPROFLOXACIN 250 MG TABLET PO SCH (08:09)
[2022-12-17] MEDS: SODIUM CHLORIDE FLUSH 0.9% 10 ML SYRINGE IVP SCH (08:10)
[2022-12-17] MEDS: INSULIN LISPRO 300 UNIT/3 ML PEN SUBQ SCH ×2 (08:10→11:57)
[2022-12-17] MEDS: ENOXAPARIN 40 MG/0.4 ML SYRINGE SUBQ SCH (08:10)
[2022-12-17 08:17] VITALS: BP 124/84; O2SAT 95
[2022-12-17] MEDS: CALCIUM CARBONATE CHEW 500 MG TABLET PO PRN (12:03)
--- NOTE | 2022-12-17 13:26 | Discharge Plan ---
Discharge Plan Problem Reviewed?: Yes Disposition: Home, Self Care Condition: Stable Prescriptions: Ciprofloxacin [Cipro] 500 mg PO BID 12 Days #48 tab Clindamycin [Cleocin] 300 mg PO TID 12 Days #72 cap Blood-Glucose Meter [Glucometer] 1 each ACHS #1 each metFORMIN [Glucophage] 500 mg PO BID #60 tab Lancets/Blood Glucose Strips [Pogo Automatic Test Cartridge] 1 each ACHS #90 ea Lactobacillus Combination No.4 [Probiotic] 1 each PO DAILY 12 Days #12 cap Gauze Bandage [Sterile Pads] 1 each TP BID #60 each Multivitamin W/Minerals [Theragran M] 1 tab PO DAILYWM #30 tab Cholecalciferol [Vitamin D3] 5,000 unit PO DAILY #30 cap Diet: Diabetic (Low salt) Activity Restrictions: Activity as Tolerated Shower Restrictions: No Driving Restrictions: No Weight Bearing: Full Weight Instruction Topics: Wound Care Health Concerns: You were hospitalized to treat a red left leg (cellulitis), and then we found you have 2 open wounds, on the L ankle and below your L great toe. Your foot and nail hygiene is very bad and has added to these problems. You received iv antibiotics, and are being sent home on oral antibiotics, plus a probiotic. The General Surgeon did not recommend debridement of the 2 open foot wounds, but recommended that you cover them with dry gauze or dry bandages, and change those coverings TWICE A DAY. You must also see a Construction Coordinator; you can make your own appointment to anyone local. In addition, once you see a Primary Care doctor, that medical provider needs to refer you to a Wound Clinic (either here at [facility], but no openings until 1 month or longer, or to be seen sooner at [facility]). You are being discharged with prescriptions for Metformin and new orders for a Glucometer, lancets and glucose monitoring strips. You qualify to be managed at the [facility], also after e referral from your doctor. Please eat a Diabetic diet and take the supplements prescribed. All your new prescriptions were electronically sent to [facility] in [place]. Plan of Treatment: As above. Care Goals: Improvement in symptoms and stabilization of the goals. Assessment: The patient understands and is agreeable with the plan. Additional Instructions or Follow Up instructions: If you have new or worsening symptoms, call your primary care provider for advice, or go to a walk-in/urgent care clinic, or come to the ER. Follow-Up Care: [facility] - Wound/Ostomy, [facility] - Diabetes Ed No Smoking: If you smoke, Please STOP! Call for help. Follow-up with: Altagracia Mayes PA [Provider Admit Priv/Credential] -
--- NOTE | 2022-12-17 13:39 | DISCHARGE SUMMARY ---
Discharge Summary Admit Date: 12/13/22 Discharge Date: 12/17/22 Discharging Provider: Dr Carly Herbert Primary Care Provider: SIERRA Mayes Condition at Discharge: Stable Discharge Disposition: 01 Home, Self Care - HPI History of Present Illness: This is a 57-year-old male with a history of diabetes, CHF and depression. He used to abuse narcotics which she took for low back pain, as no transfer addition to using buprenorphine. He lost his 5 years ago and since that time reports being in a severe depression, stopped taking any diabetic medicines or taking fingersticks. He also no longer takes medicines for heart failure because because he says those ran out and he feels fine. He has no PCP. He gets his buprenorphine from a clinic in [place]. Patient says that 3 days ago he suddenly got nausea and vomiting and this continued for 3 days, and he could keep nothing down except drinking water. He also did not take his buprenorphine. This morning he awoke and noticed that his left leg was red. He is not sure when that started because he is been mostly in bed resting because of his nausea and vomiting. He denies a fever. He denies any trauma to that leg. He says he cannot feel his feet and knows that he has very bad foot hygiene. He says he cannot reach down to take care of his feet and toes, due to the back pain. He lives with a renter in his trailer. 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 He presented to the ER t his morning because of the new L leg redness that he noticed but his nausea has been subsiding. In the ER he was found to have elevated white blood count of 24 with 7% bands, lactic acid elevated at 2.3 and glucose elevated at 350. The ED provider spoke to me about this patient. He will be admitted to the Hospitalist service to treat cellulitis and uncontrolled hyperglycemia in a diabetic who is noncompliant with his treatment. I spoke to him about his CODE BLUE wishes and he wants to be a full code. - HOSPITAL COURSE Hospital Course: (1) Sepsis He was tachycardic, had elevated white blood count and his cellulitis was the s ource. He improved with treatment. (2) Cellulitis - Qualified Code(s): L03.116 - Cellulitis of left lower limb He noticed left lower leg redness with minimal pain when he got out of bed, after recovering from nausea and vomiting of 3 days at home. At presentation he was lethargic, and had sepsis by labs and VS. Blood cultures were sent from ED and he was started on antibiotics empirically using IV ceftriaxone and IV Vanco. Blood cx were neg to date. WBC and his red area slowly improved. His empiric IV ceftriaxone and IV Vanco were stopped and he was switched to empiric oral Cipro and Clinda, since we had no wound cx results to base the antibx choice on. (3) Diabetic foot ulcer On the day before discharge, his RN noticed he has 2 wounds on L foot. They were not seen at admission, not until after he took a shower. One is a deep crevice on plantar side at base of L great toe, encircling toe about 180 degrees. The other is a round skin tear at the L medial ankle. Aerobic and anaerobic cultures of both areas were sent to lab. I contacted Wound Clinic and learned that Dr Dalton just left for a 4 week vacation and no other wound clinic staff is present during those 4 weeks. I contacted Gen Surgeon and requested a consult of Dr Adolfo Salinas, asking if debridement was indicated. His recommendation was for dry dressings, to be changed BID. The wound culture results were not available the next day, which was when he was discharged. Several days later, the toe culture preliminary result was growing Beta-hemolytic Strep Group C, and sens were still pending and the final results needs to be checked to assure proper antibx treatment. (4) Diabetes mellitus w/ hyperglycemia Patient claimed he has not been on medicine for 5 years since the of his because he was so depressed and did not care about his health. He did not check his fingersticksnor follow a diabetic diet. His A1c came back at 11. Dietitian Nurys saw him in consult, spoke to him about the importance, he agreed to restart Metformin BID and was discharged on that and with new scripts for a Glucometer, strips and lancets. (5) Non compliance w medication regimen As above. (6) Hx of congestive heart failure He denied any ROSS, PND, leg edema. He said he has not been on his cardiac meds for over a year. He also has no PCP. He was not volume overloaded and VS were stable. An Echocardiogram was done to reevaluate his LVEF and it was slightly depressed. He needs PCP and/or Cardiology follow-up. (7) Poor hygiene The pain is in his lower back and prevents him from bending over and performing foot hygiene, he said. He was assisted with showering here. He needs an ap pointment to an outpatient Plate Glass Grinder (8) Chronic pain The pain is in his lower back and prevents him from bending over and performing foot hygiene, he said. He was kept on his Buprenorphine while here. - ALLERGIES Allergies/Adverse Reactions: Allergies Allergy/AdvReac Type Severity Reaction Status Date / Time Penicillins Allergy Unknown Verified 12/12/22 23:43 - MEDICATIONS Home Medications: Ambulatory Orders Medication Instructions Recorded Confirmed Buprenorphine HCl/Naloxone HCl 1 film PO DAILY 12/12/22 12/12/22 [Suboxone 8 mg-2 mg Sl Film] Blood-Glucose Meter [Glucometer] 1 each [facility] #1 each 12/17/22 Cholecalciferol [Vitamin D3] 5,000 unit PO DAILY #30 cap 12/17/22 Ciprofloxacin [Cipro] 500 mg PO BID 12 Days #48 tab 12/17/22 Clindamycin [Cleocin] 300 mg PO TID 12 Days #72 cap 12/17/22 Gauze Bandage [Sterile Pads] 1 each TP BID #60 each 12/17/22 Lactobacillus Combination No.4 1 each PO DAILY 12 Days #12 cap 12/17/22 [Probiotic] Lancets/Blood Glucose Strips [Pogo 1 each [facility] #90 ea 12/17/22 Automatic Test Cartridge] Multivitamin W/Minerals [Theragran 1 tab PO DAILYWM #30 tab 12/17/22 M] metFORMIN [Glucophage] 500 mg PO BID #60 tab 12/17/22 - PHYSICAL EXAM AT DISCHARGE General Appearance: positive: No acute distress, Alert, Other (Thin. tall male, appears older than his age.) Eyes Bilateral: positive: Normal inspection, EOMI ENT: positive: ENT inspection nml, No signs of dehydration Neck: positive: Nml inspection, No JVD Respiratory: positive: No respiratory distress, Breath sounds nml Cardiovascular: positive: Regular rate & rhythm, No murmur Abdomen: positive: Non-tender, Nml bowel sounds, No distention Skin: positive: Warm, Dry Extremities: positive: Other (L great toe has wound at base of 1st toe, plantar side. Redness without warmth or pain of L lower ant sauceda. All toes are long, thick and curled.) Neurologic/Psychiatric: positive: Oriented x3, Motor nml, Other (No sens of feet) - LABS Result Diagrams: 12/17/22 05:00 12/17/22 05:00 - DIAGNOSTIC IMAGING Diagnostic Imaging Results: Final report reviewed - SEPSIS Current Stage of Sepsis: Sepsis Sepsis Criteria: Recorded Heart Rate greater than 90 bpm, WBC count greater than 12,000 or less than 4000, Metabolic: lactate > 2 mmol/L - FOLLOW UP Follow Up: See PCP in 1-2 weeks for a hospital f/u visit. - TIME SPENT Time Spent in Discharge (Minutes): 45
[2022-12-18] MEDS ORDERED: CHOLECALCIFEROL 5,000 UNIT CAPSULE PO SCH (09:00)
--- NOTE | 2022-12-18 16:25 | CONSULTATION NOTE ---
History of Present Illness - Admitted From Admitted From:: ED with lower extremity cellulitis and to ulcer History - Past Medical History Cardiovascular: reports: Congestive heart failure, Hypertension, High cholesterol Respiratory: reports: None, Pneumonia Neuro: reports: None Endocrine/Autoimmune: reports: Type 2 diabetes GI: reports: GERD, Ulcers : reports: None HEENT: reports: None Psych: reports: Depression, Post traumatic stress disorder Musculoskeletal: reports: Chronic back pain Derm: reports: None MRSA Hx?: No - Past Surgical History Ortho: reports: Other Cardiovascular: reports: Cardiac catheterization - Family & Social History Family History: Mother: , Father: Family History Comment/Other: Mother passed in her 60s from unspecified cancer. Father passed in his 50s from unknown cause, hx of ETOH abuse and homelessness. 2 Sisters passed in their 60's from unspecified cancers. Living arrangement: At home Living Situation: With friend(s) Social History Notes: 5 years ago from cancer. Was his childhood sweetheart. Since her passing he has felt depressed. Son was tragically killed by a motor vehicle at the age of 4. Daughter and grandaughter live in town and are active in his life. 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 Has been a PPD smoker for over 40 years, now smokes 2 PPD. Denies alcohol use. Previous abuse of opiods in 2008 prompting him to begin a suboxone program. He occasional smokes a few hits of marijuana. - Substance History Use: Uses substance without health or social issues: Tobacco, Cannabis Tobacco Details: Cigarettes - POLST Patient has POLST: No POLST Status: Full Code Meds/Allgy - Home Medications Home Medications: Ambulatory Orders Medication Instructions Recorded Confirmed Buprenorphine HCl/Naloxone HCl 1 film PO DAILY 12/12/22 12/12/22 [Suboxone 8 mg-2 mg Sl Film] Blood-Glucose Meter [Glucometer] 1 each ACHS #1 each 12/17/22 Cholecalciferol [Vitamin D3] 5,000 unit PO DAILY #30 cap 12/17/22 Ciprofloxacin [Cipro] 500 mg PO BID 12 Days #48 tab 12/17/22 Clindamycin [Cleocin] 300 mg PO TID 12 Days #72 cap 12/17/22 Gauze Bandage [Sterile Pads] 1 each TP BID #60 each 12/17/22 Lactobacillus Combination No.4 1 each PO DAILY 12 Days #12 cap 12/17/22 [Probiotic] Lancets/Blood Glucose Strips [Pogo 1 each ACHS #90 ea 12/17/22 Automatic Test Cartridge] Multivitamin W/Minerals [Theragran 1 tab PO DAILYWM #30 tab 12/17/22 M] metFORMIN [Glucophage] 500 mg PO BID #60 tab 12/17/22 - Allergies Allergies/Adverse Reactions: Allergies Allergy/AdvReac Type Severity Reaction Status Date / Time Penicillins Allergy Unknown Verified 12/12/22 23:43 Exam - Physical Exam General Appearance: positive: No acute distress Peripheral Pulses: positive: 1+ Extremities: positive: Other (LLE cellulitis that is receding. Left great toe shallow ulcer.) Neurologic/Psychiatric: positive: Other Conclusion and Plan - Lab Results Microbiology Results 12/13/22 00:06 Blood - Left Iv Start Blood Culture - Final NO GROWTH AFTER 5 DAYS 12/13/22 00:06 Blood - Right Arm Blood Culture - Final NO GROWTH AFTER 5 DAYS Laboratory Results 12/17/22 11:29: POC Whole Bld Glucose 225 H 12/17/22 07:42: POC Whole Bld Glucose 204 H 12/17/22 05:00: Vitamin B12 497 12/17/22 05:00: Sodium 134 L, Potassium 4.2, Chloride 101, Carbon Dioxide 29, Anion Gap 4.0 L, BUN 11, Creatinine 0.7, Estimated GFR (MDRD) 115, Glucose 209 H, Calcium 8.9 12/17/22 05:00: WBC 9.2, RBC 4.70, Hgb 13.1 L, Hct 39.5 L, MCV 84.0, MCH 27.9, MCHC 33.2, RDW 12.7, Plt Count 300, MPV 10.1, Neut # (Auto) 5.9, Lymph # (Auto) 1.7, [place] # (Auto) 1.1 H, Eos # (Auto) 0.2, Baso # (Auto) 0.1, Absolute Nucleated RBC 0.00, Nucleated RBC % 0.0 12/16/22 20:45: POC Whole Bld Glucose 238 H 12/16/22 16:28: POC Whole Bld Glucose 189 H 12/14/22 18:24: Vitamin D 25-Hydroxy <4.0 L - Diagnosis Diagnosis: LLE cellulitis that is improving with antibiotics. Left toe shallow ulcer. - Plan Plan: No debridement indicated as the edges are clean and it is shallow. Dry dressing changes BID. Recommend follow up with podiatry as an outpatient.
== END 2022-12-17 15:00 | disposition home or self-care (01) | DRG 872 ==
LOC: ED 23:06 → MS2 12-13 09:29
PROVIDERS: ADMIT Surgery; ATTEND Internal Medicine
DX: A41.9 Sepsis, unspecified organism (principal); L03.116 Cellulitis of left lower limb; I50.9 Heart failure, unspecified; F32.A Depression, unspecified; D72.829 Elevated white blood cell count, unspecified; E11.65 Type 2 diabetes mellitus with hyperglycemia; E11.621 Type 2 diabetes mellitus with foot ulcer; L97.529 Non-pressure chronic ulcer of other part of left foot with unspecified severity; G89.29 Other chronic pain; M54.50 Low back pain, unspecified; I11.0 Hypertensive heart disease with heart failure; E78.00 Pure hypercholesterolemia, unspecified; F43.10 Post-traumatic stress disorder, unspecified; F17.210 Nicotine dependence, cigarettes, uncomplicated; E11.51 Type 2 diabetes mellitus with diabetic peripheral angiopathy without gangrene; E86.0 Dehydration; L85.3 Xerosis cutis; L60.2 Onychogryphosis; Z20.822 Contact with and (suspected) exposure to COVID-19; Z63.4 Disappearance and death of family member; Z79.84 Long term (current) use of oral hypoglycemic drugs; Z79.899 Other long term (current) drug therapy; Z88.0 Allergy status to penicillin; Z91.148 Patient's other noncompliance with medication regimen for other reason
CPT/HCPCS: 36415; 71045; 73630; 80048; 80053; 80202; 80306; 80320; 81001; 82306; 82550; 82607; 82803; 83036; 83605; 83690; 84484; 85025; 85610; 87040; 87633; 93005; 93306; 96361; 96365; 96375; 99284; 99285; A9270; J1650; J3370; 81003; 87086

== ENCOUNTER 2023-03-23 14:44 | Outpatient (CLI) | payer MEDICAID | END 2023-03-23 14:45 | disposition critical access hospital (66) | LOC: EMS 14:44 | DX: R53.1 Weakness (principal); R41.0 Disorientation, unspecified; R46.4 Slowness and poor responsiveness; R50.9 Fever, unspecified; L97.329 Non-pressure chronic ulcer of left ankle with unspecified severity; L97.319 Non-pressure chronic ulcer of right ankle with unspecified severity | CPT/HCPCS: A0425; A0427; A0999 ==

== ENCOUNTER 2023-03-23 15:07 | Emergency (ER) | payer MEDICAID ==
--- NOTE | 2023-03-23 15:22 | ED Physician Documentation ---
History of Present Illness - Stated complaint Stated Complaint: AMS - History obtained from History obtained from: Patient, EMS - History of Present Illness Pain level max: 0 Pain level now: 0 - Additonal information Additional information: Patient is a 57-year-old male who was brought into the emergency department for fever, altered mental status. History of heart failure, diabetes, pneumonia. He has been treated for chronic wounds on his foot. He is supposed to be on ciprofloxacin but has not been taking this. EMS states that there is odor coming from his foot. No falls. No trauma. Review of Systems Constitutional: denies: Fever, Chills GI: denies: Vomiting, Diarrhea Musculoskeletal: denies: Neck pain, Back pain Neurologic: denies: Headache PD PAST MEDICAL HISTORY - Past Medical History Cardiovascular: Congestive heart failure, Hypertension, High cholesterol Respiratory: None, Pneumonia Neuro: None Endocrine/Autoimmune: Type 2 diabetes GI: GERD, Ulcers : None HEENT: None Psych: Depression, Post traumatic stress disorder Musculoskeletal: Chronic back pain Derm: None - Past Surgical History Past Surgical History: Yes Ortho: Other Cardiovascular: Cardiac catheterization - Present Medications Home Medications: Ambulatory Orders Medication Instructions Recorded Confirmed Buprenorphine HCl/Naloxone HCl 1 film PO DAILY 12/12/22 12/12/22 [Suboxone 8 mg-2 mg Sl Film] Blood-Glucose Meter [Glucometer] 1 each [facility] #1 each 12/17/22 Cholecalciferol [Vitamin D3] 5,000 unit PO DAILY #30 cap 12/17/22 Clindamycin [Cleocin] 300 mg PO TID 12 Days #72 cap 12/17/22 Lactobacillus Combination No.4 1 each PO DAILY 12 Days #12 cap 12/17/22 [Probiotic] Lancets/Blood Glucose Strips [Pogo 1 each [facility] #90 ea 12/17/22 Automatic Test Cartridge] Multivitamin W/Minerals [Theragran 1 tab PO DAILYWM #30 tab 12/17/22 M] metFORMIN [Glucophage] 500 mg PO BID #60 tab 12/17/22 - Allergies Allergies/Adverse Reactions: Allergies Allergy/AdvReac Type Severity Reaction Status Date / Time Penicillins Allergy Unknown Verified 03/23/23 15:30 - Social History Does the pt smoke?: Yes Smoking Status: Current every day smoker Does the pt drink ETOH?: No Does the pt have substance abuse?: Yes - Immunizations Immunizations are current?: No Immunizations: TDAP >10years/unknown - POLST Patient has POLST: No POLST Status: Full Code PD ED PE NORMAL - Vitals Vital signs reviewed: Yes - General General: Alert and oriented X 3, No acute distress - HEENT HEENT: Atraumatic, PERRL, Moist mucous membranes - Neck Neck: Supple, no meningeal sign - Cardiac Cardiac: RRR, Strong equal pulses - Respiratory Respiratory: No respiratory distress, Clear bilaterally - Abdomen Abdomen: Soft, Non tender, Non distended - Derm Derm: Warm and dry - Extremities Extremities: Other - Neuro Neuro: Alert and oriented X 3 - Psych Psych: Normal mood, Normal affect - Free text exam Free text exam: Obviously necrotic left foot. Foul smell. Blackened plantar area of the foot, blackened great toe and the remainder the toes are dusky and blackened as well. There appears to be necrotic tissue up to at least to the midfoot if not the ankle. There are also ulcerations on the left ankle. These are draining foul-smelling purulence. Results - Vitals Vitals: Vital Signs - 24 hr 03/23/23 03/23/23 03/23/23 15:10 15:31 15:59 Temperature 35.9 C L Heart Rate 146 H 144 H Respiratory 22 20 Rate Blood Pressure 97/35 L 102/71 O2 Saturation 93 95 If not protocol 3 2 : Oxygen Flow, liters/minute 03/23/23 03/23/23 03/23/23 16:50 19:33 20:17 Temperature Heart Rate 121 H 112 H 118 H Respiratory 20 20 20 Rate Blood Pressure 122/76 149/72 H O2 Saturation 98 100 96 If not protocol 3 3 3 : Oxygen Flow, liters/minute 03/23/23 03/23/23 21:28 22:21 Temperature 36.7 C Heart Rate 112 H 110 H Respiratory 19 21 Rate Blood Pressure 100/71 O2 Saturation 95 94 If not protocol : Oxygen Flow, liters/minute Oxygen O2 Source Room air - Labs Labs: Laboratory Tests 03/23/23 03/23/23 03/23/23 15:34 15:34 15:34 WBC 36.8 H* RBC 5.27 Hgb 13.5 L Hct 42.7 MCV 81.0 MCH 25.6 L MCHC 31.6 L RDW 14.2 Plt Count 401 MPV 10.0 Neut # (Auto) Not Reportable Lymph # (Auto) Not Reportable [place] # (Auto) Not Reportable Eos # (Auto) Not Reportable Baso # (Auto) Not Reportable Absolute Nucleated RBC Not Reportable Total Counted 100 Band Neuts % (Manual) 6 Abnorm Lymph % (Manual) 0 Nucleated RBC % Not Reportable Neutrophils # (Manual) 35.3 H Lymphocytes # (Manual) 0.7 L Monocytes # (Manual) 0.7 Eosinophils # (Manual) 0.0 Basophils # (Manual) 0.0 Differential Comment MANUAL DIFFERENTIAL WBC Morphology INTRACELL BACTERIA Platelet Estimate NORMAL (130-450,000) Platelet Morphology NORMAL APPEARANCE RBC Morph Micro Appear NORMAL APPEARANCE PT 29.7 H INR 2.9 H APTT 31.3 Sodium 135 Potassium 4.2 Chloride 95 L Carbon Dioxide 27 Anion Gap 13.0 BUN 26 H Creatinine 0.9 Estimated GFR (MDRD) 86 L Glucose 224 H Lactic Acid Calcium 8.9 Total Bilirubin 0.8 AST 14 ALT 11 Alkaline Phosphatase 161 H Total Protein 7.6 Albumin 2.8 L Globulin 4.8 H Albumin/Globulin Ratio 0.6 L Lipase 14 SARS-CoV-2 (PCR) 03/23/23 03/23/23 03/23/23 15:34 17:45 18:58 WBC RBC Hgb Hct MCV MCH MCHC RDW Plt Count MPV Neut # (Auto) Lymph # (Auto) [place] # (Auto) Eos # (Auto) Baso # (Auto) Absolute Nucleated RBC Total Counted Band Neuts % (Manual) Abnorm Lymph % (Manual) Nucleated RBC % Neutrophils # (Manual) Lymphocytes # (Manual) Monocytes # (Manual) Eosinophils # (Manual) Basophils # (Manual) Differential Comment WBC Morphology Platelet Estimate Platelet Morphology RBC Morph Micro Appear PT INR APTT Sodium Potassium Chloride Carbon Dioxide Anion Gap BUN Creatinine Estimated GFR (MDRD) Glucose Lactic Acid 3.0 H* 2.3 H Calcium Total Bilirubin AST ALT Alkaline Phosphatase Total Protein Albumin Globulin Albumin/Globulin Ratio Lipase SARS-CoV-2 (PCR) NOT DETECTED 03/23/23 22:05 WBC RBC Hgb Hct MCV MCH MCHC RDW Plt Count MPV Neut # (Auto) Lymph # (Auto) [place] # (Auto) Eos # (Auto) Baso # (Auto) Absolute Nucleated RBC Total Counted Band Neuts % (Manual) Abnorm Lymph % (Manual) Nucleated RBC % Neutrophils # (Manual) Lymphocytes # (Manual) Monocytes # (Manual) Eosinophils # (Manual) Basophils # (Manual) Differential Comment WBC Morphology Platelet Estimate Platelet Morphology RBC Morph Micro Appear PT INR APTT Sodium Potassium Chloride Carbon Dioxide Anion Gap BUN Creatinine Estimated GFR (MDRD) Glucose Lactic Acid 1.3 Calcium Total Bilirubin AST ALT Alkaline Phosphatase Total Protein Albumin Globulin Albumin/Globulin Ratio Lipase SARS-CoV-2 (PCR) - Rads (name of study) L tib fib xray Relevant Findings:: Final report received, See rad report L foot xray Relevant Findings:: Final report received, See rad report PD Medical Decision Making - ED course Complexity details: reviewed results, re-evaluated patient, considered differential, d/w patient ED course: Patient is a diabetic male, noncompliant with his antibiotic regimen at home. Has gangrenous necrosis of the left foot. He has a significantly elevated white blood cell count, elevated lactate. Labs consistent with sepsis. He is tachycardic, mildly hypotensive. Given IV fluids. He was also given IV cefepime as he is penicillin allergic and IV vancomycin. There is no ort hopedics available at this hospital for the next 1 week. Therefore the patient will need to be transferred for higher level of care. A search for transfer was started at 1630. There are no beds available anywhere in the region. [facility] was contacted and they will try to find a place for the patient. Images were also sent to the [facility]. They state that they do not have any beds available to care for the patient. Their orthopedist refuses the transfer. The patient's heart rate decreased. His blood pressure improved. Again we do not have any orthopedics here for the next 7 days. He will need amputation prior to that as he is septic from his gangrenous foot. Patient is signed out to the [facility] emergency department physician while a search for transfer is continued. This document was made in part using voice recognition software. While efforts are made to proofread this document, sound alike and grammatical errors may occur. - Critical Care Time(min): 45 Time Includes: Direct patient care, Reassess patient, Document care, Coordinate care, See progress note Data interpretation: See progress note Procedures included in critical care time: See progress note Procedures excluded from critical care time: See progress note - Sepsis Event Sepsis Onset Date: 03/23/23 Sepsis Onset Time: 16:49 Current Stage of Sepsis: Sepsis Possible source of Sepsis: Skin/soft tissue (gangrenous, necrotic foot) Mental/Cognitive Status: Alert/Oriented X3 Reason for not giving 30ml/kg crystalloid fluids: Not in septic shock, Patient has heart failure, Fluid overload potential Capillary refill: Less than 2 seconds Peripheral Pulse Strength: 1+ Faint Peripheral Pulse Location: Radial Departure - Departure Disposition: 02 Transfer Acute Care Hosp Clinical Impression: Gangrene of left foot Sepsis Qualifiers: Sepsis type: sepsis due to unspecified organism Sepsis acute organ dysfunction status: without acute organ dysfunction Qualified Code(s): A41.9 - Sepsis, unspecified organism Elevated white blood cell count Qualifiers: Leukocytosis type: unspecified Qualified Code(s): D72.829 - Elevated white blood cell count, unspecified Condition: Stable
[2023-03-23] MEDS ORDERED: CEFEPIME 2 GM in SODIUM CHLORIDE 0.9% MINIBAG 100 ML IV STA (15:23)
[2023-03-23 15:48] LABS: BASOPHILS % (AUTO) 0.4 %; HCT - HEMATOCRIT 42.7 % (42.0-52.0); HGB - HEMOGLOBIN 13.5 g/dL (14.0-18.0); LYMPHOCYTES % (AUTO) 1.1 %; MEAN CORPUSCULAR HEMOGLOBIN 25.6 pg (27.0-31.0); MEAN CORPUSCULAR HGB CONC 31.6 g/dL (32.0-36.0); MONOCYTES % (AUTO) 3.1 %; NEUTROPHILS % (AUTO) 93.3 %; PLT - PLATELET COUNT 401 10^3/uL (130-450); RED BLOOD COUNT 5.27 10^6/uL (4.70-6.10); RED CELL DISTRIBUTION WIDTH 14.2 % (12.0-15.0)
[2023-03-23 15:55] LABS: PARTIAL THROMBOPLASTIN TIME 31.3 secs (24.9-33.3); WHITE BLOOD COUNT 36.8 x10^3/uL (4.8-10.8)
[2023-03-23 15:56] LABS: ABNORMAL LYMPHS % (MANUAL) 0 %
[2023-03-23 15:59] LABS: ALBUMIN 2.8 g/dL (3.2-5.5); ALBUMIN/GLOBULIN RATIO 0.6 (1.0-2.2); BILIRUBIN,TOTAL 0.8 mg/dL (0.2-1.0); CALCIUM 8.9 mg/dL (8.5-10.3); CREATININE 0.9 mg/dL (0.6-1.3); POTASSIUM 4.2 mmol/L (3.5-4.5); TOTAL PROTEIN 7.6 g/dL (6.4-8.9)
[2023-03-23 16:00] LABS: INR 2.9 (0.8-1.2); PT - PROTHROMBIN TIME 29.7 secs (9.9-12.6)
[2023-03-23] MEDS ORDERED: SODIUM CHLORIDE 0.9% 1,000 ML IV STA ×2 (16:21→18:25)
[2023-03-23] MEDS: SODIUM CHLORIDE 0.9% 1,000 ML IV STA ×2 (16:22→16:23)
[2023-03-23 16:32] LABS: BAND NEUTROPHILS % (MANUAL) 6 %; LYMPHOCYTES # (MANUAL) 0.7 10^3/uL (1.5-3.5); LYMPHOCYTES % (MANUAL) 2 %; MONOCYTES # (MANUAL) 0.7 10^3/uL (0.0-1.0); NEUTROPHILS # (MANUAL) 35.3 10^3/uL (1.5-6.6)
[2023-03-23 16:35] LABS: PLATELET ESTIMATE, MANUAL NORMAL (130-450,000) (NORMAL); PLATELET MORPHOLOGY NORMAL APPEARANCE (NORMAL); RBC MORPHOLOGY (MULTIPLE) NORMAL APPEARANCE (NORMAL)
[2023-03-23 16:37] LABS: DIFFERENTIAL COMMENT MANUAL DIFFERENTIAL
--- NOTE | 2023-03-23 17:06 | XRAY Report ---
PROCEDURE: Foot 3 View LT INDICATIONS: Left foot necrosis TECHNIQUE: 3 views of the foot were acquired. COMPARISON: X-ray left foot, 12/13/2022. FINDINGS: Bones: No acute fractures or dislocations. Old fracture/deformity at the base of the fifth metatarsa l. No suspicious bony lesions. Soft tissues: No suspicious soft tissue calcifications or masses. Subcutaneous lucencies in the firs t toe and medial aspect of the left foot compatible with subcutaneous gas. IMPRESSION: 1. Subcutaneous gas is present in the medial aspect of the left foot consistent with soft tissue necr osis. 2. No acute bony abnormality. Radiographs are, however, not sensitive to detect early osteomyelitis. Recommend MRI with and without contrast if clinically indicated. Reviewed by: Anastasia Shi MD on 03/23/2023 5:05 PM [facility] Approved by: Anastasia Shi MD on 03/23/2023 5:05 PM [facility] Station ID: [id number]
--- NOTE | 2023-03-23 17:11 | XRAY Report ---
PROCEDURE: Tib/Fib LT INDICATIONS: necrotic foot/leg TECHNIQUE: 2 views of the tibia and fibula were acquired. COMPARISON: None. FINDINGS: Bones: No fractures or dislocations. No suspicious bony lesions. Soft tissues: No suspicious soft tissue calcifications or masses. There is a soft tissue gas collect ion in ankle. IMPRESSION: 1. Soft tissue calcification in ankle consistent with soft tissue infection. 2. No acute bony abnormality. X-ray is not sensitive to detect early osteomyelitis. If there is daniel nued clinical suspicion, consider MRI with and without contrast. Reviewed by: Anastasia Shi MD on 03/23/2023 5:09 PM PST Approved by: Anastasia Shi MD on 03/23/2023 5:09 PM PST Station ID: [id number]
[2023-03-23 19:19] LABS: LACTIC ACID, VENOUS 2.3 mmol/L (0.5-2.2)
[2023-03-23 22:42] LABS: GLUCOSE, URINE (UA) NEGATIVE (NEGATIVE); KETONES,URINE (UA) 15 mg/dL (NEGATIVE); LEUKOCYTE ESTERASE, URINE NEGATIVE (NEGATIVE); NITRITE,URINE NEGATIVE (NEGATIVE); OCCULT BLOOD,URINE TRACE-INTA (NEGATIVE); PH,URINE 5.5 PH (5.0-7.5); PROTEIN,URINE 100 mg/dL (NEGATIVE); UROBILINOGEN,URINE 1 (NORMAL) E.U./dL (NORMAL)
[2023-03-23] MEDS ORDERED: ONDANSETRON 4 MG/2 ML VIAL IVP PRN (22:44)
[2023-03-23] MEDS ORDERED: oxyCODONE 5 MG TABLET PO PRN (22:44)
[2023-03-23] MEDS ORDERED: ACETAMINOPHEN 500 MG TABLET PO PRN (22:44)
[2023-03-23 22:45] LABS: BILIRUBIN,URINE NEGATIVE (NEGATIVE); CLARITY,URINE CLEAR (CLEAR); ICTOTEST,URINE NEGATIVE
[2023-03-23 22:57] LABS: AMORPHOUS SEDIMENT,UR Rare /LPF; BACTERIA,URINE Rare /HPF (None Seen); CASTS, URINE 0-2 Hyaline Casts /LPF; RBC,URINE 0-5 /HPF (0-5); SQUAMOUS EPITHELIAL CELL,UR RARE Squamous (<= Few); WBC,URINE 0-3 /HPF (0-3)
[2023-03-23] MEDS ORDERED: VANCOMYCIN 1 GM VIAL ONE (23:00)
[2023-03-23] MEDS: VANCOMYCIN INJ 1 GM in SODIUM CHLORIDE 0.9% 250 ML IV SCH (23:04)
[2023-03-24] MEDS: CEFEPIME 2 GM in SODIUM CHLORIDE 0.9% MINIBAG 100 ML IV SCH ×2 (04:07→15:48)
[2023-03-24 05:31] LABS: BASOPHILS % (AUTO) 0.3 %; EOSINOPHILS % (AUTO) 0.1 %; HCT - HEMATOCRIT 36.2 % (42.0-52.0); HGB - HEMOGLOBIN 11.1 g/dL (14.0-18.0); MEAN CORPUSCULAR HEMOGLOBIN 25.7 pg (27.0-31.0); MEAN CORPUSCULAR HGB CONC 30.7 g/dL (32.0-36.0); MEAN CORPUSCULAR VOLUME 83.8 fL (80.0-94.0); MEAN PLATELET VOLUME 10.2 fL (7.4-11.4); MONOCYTES % (AUTO) 6.7 %; NEUTROPHILS % (AUTO) 87.9 %; PLT - PLATELET COUNT 326 10^3/uL (130-450); RED BLOOD COUNT 4.32 10^6/uL (4.70-6.10); RED CELL DISTRIBUTION WIDTH 14.2 % (12.0-15.0); WHITE BLOOD COUNT 33.4 x10^3/uL (4.8-10.8)
[2023-03-24 05:40] LABS: ABNORMAL LYMPHS % (MANUAL) 0 %
[2023-03-24 05:45] LABS: CALCIUM 7.7 mg/dL (8.5-10.3); CREATININE 0.7 mg/dL (0.6-1.3); POTASSIUM 3.7 mmol/L (3.5-4.5)
[2023-03-24 06:24] LABS: BAND NEUTROPHILS % (MANUAL) 15 %; DIFFERENTIAL COMMENT MANUAL DIFFERENTIAL; LYMPHOCYTES # (MANUAL) 3.3 10^3/uL (1.5-3.5); LYMPHOCYTES % (MANUAL) 10 %; NEUTROPHILS # (MANUAL) 29.1 10^3/uL (1.5-6.6); PLATELET ESTIMATE, MANUAL NORMAL (130-450,000) (NORMAL); RBC MORPHOLOGY (MULTIPLE) NORMAL APPEARANCE (NORMAL)
[2023-03-24] MEDS ORDERED: PANTOPRAZOLE 40 MG TABLET PO SCH (07:00)
[2023-03-24] MEDS ORDERED: CALCIUM GLUC 1,000MG/50ML-NACL 1,000 MG/50 ML BAG IV STA (07:21)
[2023-03-24] MEDS ORDERED: BUPRENORPHINE/NALOXONE 8-2 MG TAB SL STA (08:20)
--- NOTE | 2023-03-24 08:36 | ED Physician Documentation ---
ED Addendum - Addendum Addendum: 03/24/23 08:35 Patient care assumed at shift change. Patient is boarding in the emergency department awaiting transfer to facility with higher level of care. Patient is bacteremic, septic, has a gangrenous left foot. Reports feeling okay this morning Without any immediate needs. Vital signs have been stable and he is not requiring pressors. He is on vancomycin and cefepime. White blood cell count has slightly decreased today, bands are up to 15%. Calcium is 7.7 so IV replacement was ordered as patient is to be NPO.Blood cultures are positive for Enterococcus. 03/24/23 17:25 Patient remains boarding in the emergency department awaiting transfer. Most recent vitals appear stable. Patient will be signed out to oncoming provider at shift change.
[2023-03-24] MEDS: VANCOMYCIN INJ 1 GM in SODIUM CHLORIDE 0.9% 250 ML IV SCH (11:40)
--- NOTE | 2023-03-24 19:33 | ED Physician Documentation ---
ED Addendum - Addendum Addendum: I spoke with Danisha Poon, orthopedics, Dr. Serrato, he states that the patient may need vascular. We agree that the patient will likely need to be admitted to the hospitalist service for his diabetes and sepsis, will need vascular studies performed at [facility]. The patient has a cool foot on today's evaluation. I did attempt to Doppler pulses in the DP and PT areas, I did not find any pulses with Doppler. His leg is pink and warm above the ankle. The patient was maintained on vancomycin and cefepime. I spoke with Dr. Forrest Buckner, hospitalist who graciously accepts the patient in transfer. COBRA forms completed. Patient will be transferred for higher level of care to [facility]. As previously stated we do not have vascular surgery here and we do not have orthopedics here for the next week. This document was made in part using voice recognition software. While efforts are made to proofread this document, sound alike and grammatical errors may occur. Results - Vitals Vitals: Vital Signs - 24 hr 03/23/23 03/23/23 03/23/23 20:17 21:28 22:21 Temperature 36.7 C Heart Rate 118 H 112 H 110 H Respiratory 20 19 21 Rate Blood Pressure 100/71 O2 Saturation 96 95 94 If not protocol 3 : Oxygen Flow, liters/minute 03/23/23 03/24/23 03/24/23 23:16 00:25 02:21 Temperature 36.4 C L Heart Rate 100 97 88 Respiratory 20 14 25 H Rate Blood Pressure 124/62 115/74 115/61 O2 Saturation 97 94 100 If not protocol 2 2 : Oxygen Flow, liters/minute 03/24/23 03/24/23 03/24/23 03:35 04:20 05:32 Temperature 36.4 C L Heart Rate 73 77 68 Respiratory 14 13 13 Rate Blood Pressure 113/60 101/65 113/68 O2 Saturation 98 98 99 If not protocol 2 2 : Oxygen Flow, liters/minute 03/24/23 03/24/23 03/24/23 06:44 08:00 10:00 Temperature 36.6 C 36.4 C L Heart Rate 80 73 65 Respiratory 19 14 Rate Blood Pressure 114/67 123/65 117/76 O2 Saturation 98 100 100 If not protocol 2 2 2 : Oxygen Flow, liters/minute 03/24/23 03/24/23 03/24/23 11:53 14:05 16:00 Temperature 37.2 C 36.1 C L Heart Rate 80 81 83 Respiratory 16 15 13 Rate Blood Pressure 127/72 134/107 H 115/55 L O2 Saturation 95 98 99 If not protocol : Oxygen Flow, liters/minute 03/24/23 18:33 Temperature 36.3 C L Heart Rate 83 Respiratory 18 Rate Blood Pressure 129/66 O2 Saturation 97 If not protocol : Oxygen Flow, liters/minute Oxygen O2 Source Room air Oxygen Flow Rate 2 - Labs Labs: Microbiology 03/23/23 15:38 Blood Culture - Preliminary Blood - Left Arm 03/23/23 15:34 Blood Culture - Preliminary Blood - Right Arm 03/23/23 15:38 Blood Culture (PCR) - Final Blood - Left Arm Laboratory Tests 03/23/23 03/23/23 03/23/23 15:34 15:34 15:34 WBC 36.8 H* RBC 5.27 Hgb 13.5 L Hct 42.7 MCV 81.0 MCH 25.6 L MCHC 31.6 L RDW 14.2 Plt Count 401 MPV 10.0 Neut # (Auto) Not Reportable Lymph # (Auto) Not Reportable [place] # (Auto) Not Reportable Eos # (Auto) Not Reportable Baso # (Auto) Not Reportable Absolute Nucleated RBC Not Reportable Total Counted 100 Band Neuts % (Manual) 6 Abnorm Lymph % (Manual) 0 Nucleated RBC % Not Reportable Neutrophils # (Manual) 35.3 H Lymphocytes # (Manual) 0.7 L Monocytes # (Manual) 0.7 Eosinophils # (Manual) 0.0 Basophils # (Manual) 0.0 Differential Comment MANUAL DIFFERENTIAL WBC Morphology INTRACELL BACTERIA Platelet Estimate NORMAL (130-450,000) Platelet Morphology NORMAL APPEARANCE RBC Morph Micro Appear NORMAL APPEARANCE PT 29.7 H INR 2.9 H APTT 31.3 Sodium 135 Potassium 4.2 Chloride 95 L Carbon Dioxide 27 Anion Gap 13.0 BUN 26 H Creatinine 0.9 Estimated GFR (MDRD) 86 L Glucose 224 H Lactic Acid Calcium 8.9 Total Bilirubin 0.8 AST 14 ALT 11 Alkaline Phosphatase 161 H Total Protein 7.6 Albumin 2.8 L Globulin 4.8 H Albumin/Globulin Ratio 0.6 L Lipase 14 Urine Color Urine Clarity Urine pH Ur Specific [place] Urine Protein Urine Glucose (UA) Urine Ketones Urine Occult Blood Urine Nitrite Urine Bilirubin Urine Urobilinogen Ur Leukocyte Esterase Urine RBC Urine WBC Ur Squamous Epith Cells Amorphous Sediment Urine Bacteria Urine Casts Ur Microscopic Review Urine Culture Comments SARS-CoV-2 (PCR) 03/23/23 03/23/23 03/23/23 15:34 17:45 18:58 WBC RBC Hgb Hct MCV MCH MCHC RDW Plt Count MPV Neut # (Auto) Lymph # (Auto) [place] # (Auto) Eos # (Auto) Baso # (Auto) Absolute Nucleated RBC Total Counted Band Neuts % (Manual) Abnorm Lymph % (Manual) Nucleated RBC % Neutrophils # (Manual) Lymphocytes # (Manual) Monocytes # (Manual) Eosinophils # (Manual) Basophils # (Manual) Differential Comment WBC Morphology Platelet Estimate Platelet Morphology RBC Morph Micro Appear PT INR APTT Sodium Potassium Chloride Carbon Dioxide Anion Gap BUN Creatinine Estimated GFR (MDRD) Glucose Lactic Acid 3.0 H* 2.3 H Calcium Total Bilirubin AST ALT Alkaline Phosphatase Total Protein Albumin Globulin Albumin/Globulin Ratio Lipase Urine Color Urine Clarity Urine pH Ur Specific [place] Urine Protein Urine Glucose (UA) Urine Ketones Urine Occult Blood Urine Nitrite Urine Bilirubin Urine Urobilinogen Ur Leukocyte Esterase Urine RBC Urine WBC Ur Squamous Epith Cells Amorphous Sediment Urine Bacteria Urine Casts Ur Microscopic Review Urine Culture Comments SARS-CoV-2 (PCR) NOT DETECTED 03/23/23 03/23/23 03/24/23 21:50 22:05 05:22 WBC 33.4 H RBC 4.32 L Hgb 11.1 L Hct 36.2 L MCV 83.8 MCH 25.7 L MCHC 30.7 L RDW 14.2 Plt Count 326 MPV 10.2 Neut # (Auto) Not Reportable Lymph # (Auto) Not Reportable [place] # (Auto) Not Reportable Eos # (Auto) Not Reportable Baso # (Auto) Not Reportable Absolute Nucleated RBC Not Reportable Total Counted 100 Band Neuts % (Manual) 15 H Abnorm Lymph % (Manual) 0 Nucleated RBC % Not Reportable Neutrophils # (Manual) 29.1 H Lymphocytes # (Manual) 3.3 Monocytes # (Manual) 1.0 Eosinophils # (Manual) 0.0 Basophils # (Manual) 0.0 Differential Comment MANUAL DIFFERENTIAL WBC Morphology Platelet Estimate NORMAL (130-450,000) Platelet Morphology RBC Morph Micro Appear NORMAL APPEARANCE PT INR APTT Sodium Potassium Chloride Carbon Dioxide Anion Gap BUN Creatinine Estimated GFR (MDRD) Glucose Lactic Acid 1.3 Calcium Total Bilirubin AST ALT Alkaline Phosphatase Total Protein Albumin Globulin Albumin/Globulin Ratio Lipase Urine Color DARK YELLOW Urine Clarity CLEAR Urine pH 5.5 Ur Specific [place] 1.025 Urine Protein 100 H Urine Glucose (UA) NEGATIVE Urine Ketones 15 H Urine Occult Blood TRACE-INTA Urine Nitrite NEGATIVE Urine Bilirubin NEGATIVE Urine Urobilinogen 1 (NORMAL) Ur Leukocyte Esterase NEGATIVE Urine RBC 0-5 Urine WBC 0-3 Ur Squamous Epith Cells RARE Squamous Amorphous Sediment Rare Urine Bacteria Rare Urine Casts 0-2 Hyaline Casts Ur Microscopic Review INDICATED Urine Culture Comments NOT INDICATED SARS-CoV-2 (PCR) 03/24/23 05:22 WBC RBC Hgb Hct MCV MCH MCHC RDW Plt Count MPV Neut # (Auto) Lymph # (Auto) [place] # (Auto) Eos # (Auto) Baso # (Auto) Absolute Nucleated RBC Total Counted Band Neuts % (Manual) Abnorm Lymph % (Manual) Nucleated RBC % Neutrophils # (Manual) Lymphocytes # (Manual) Monocytes # (Manual) Eosinophils # (Manual) Basophils # (Manual) Differential Comment WBC Morphology Platelet Estimate Platelet Morphology RBC Morph Micro Appear PT INR APTT Sodium 136 Potassium 3.7 Chloride 102 Carbon Dioxide 28 Anion Gap 6.0 BUN 20 Creatinine 0.7 Estimated GFR (MDRD) 115 Glucose 207 H Lactic Acid Calcium 7.7 L Total Bilirubin AST ALT Alkaline Phosphatase Total Protein Albumin Globulin Albumin/Globulin Ratio Lipase Urine Color Urine Clarity Urine pH Ur Specific [place] Urine Protein Urine Glucose (UA) Urine Ketones Urine Occult Blood Urine Nitrite Urine Bilirubin Urine Urobilinogen Ur Leukocyte Esterase Urine RBC Urine WBC Ur Squamous Epith Cells Amorphous Sediment Urine Bacteria Urine Casts Ur Microscopic Review Urine Culture Comments SARS-CoV-2 (PCR) Departure - Departure Disposition: 02 Transfer Acute Care Hosp Clinical Impression: Gangrene of left foot Sepsis Qualifiers: Sepsis type: sepsis due to unspecified organism Sepsis acute organ dysfunction status: without acute organ dysfunction Qualified Code(s): A41.9 - Sepsis, unspecified organism Elevated white blood cell count Qualifiers: Leukocytosis type: unspecified Qualified Code(s): D72.829 - Elevated white blood cell count, unspecified Condition: Stable Forms: PCP List
[2023-03-24 21:59] VITALS: BP 124/66; O2SAT 98
== END 2023-03-24 22:05 | disposition short-term general hospital (02) ==
LOC: EDUNIT# → ED 15:07
DX: I96 Gangrene, not elsewhere classified (principal); E11.52 Type 2 diabetes mellitus with diabetic peripheral angiopathy with gangrene; R78.81 Bacteremia; D72.829 Elevated white blood cell count, unspecified; K52.9 Noninfective gastroenteritis and colitis, unspecified; I10 Essential (primary) hypertension; Z79.4 Long term (current) use of insulin; F17.200 Nicotine dependence, unspecified, uncomplicated
CPT/HCPCS: 36415; 73590; 73630; 80048; 80053; 81001; 83605; 83690; 85025; 85610; 85730; 87040; 87077; 87150; 87181; 87635; 96361; 96365; 96366; 96367; 99285; 99291; A9270; J3370; 81003; 87086

== ENCOUNTER 2023-04-25 08:12 | Outpatient (CLI) | payer MEDICAID ==
[2023-04-25 12:27] LABS: BASOPHILS # (AUTO) 0.1 10^3/uL (0.0-0.1); BASOPHILS % (AUTO) 0.8 %; EOSINOPHILS # (AUTO) 0.3 10^3/uL (0.0-0.7); EOSINOPHILS % (AUTO) 3.2 %; HCT - HEMATOCRIT 39.2 % (42.0-52.0); HGB - HEMOGLOBIN 12.5 g/dL (14.0-18.0); LYMPHOCYTES # (AUTO) 2.1 10^3/uL (1.5-3.5); LYMPHOCYTES % (AUTO) 25.2 %; MEAN CORPUSCULAR HGB CONC 31.9 g/dL (32.0-36.0); MEAN CORPUSCULAR VOLUME 84.7 fL (80.0-94.0); MEAN PLATELET VOLUME 10.7 fL (7.4-11.4); MONOCYTES # (AUTO) 0.8 10^3/uL (0.0-1.0); MONOCYTES % (AUTO) 9.6 %; NEUTROPHILS # (AUTO) 5.1 10^3/uL (1.5-6.6); PLT - PLATELET COUNT 329 10^3/uL (130-450); RED BLOOD COUNT 4.63 10^6/uL (4.70-6.10); RED CELL DISTRIBUTION WIDTH 15.9 % (12.0-15.0); WHITE BLOOD COUNT 8.3 x10^3/uL (4.8-10.8)
[2023-04-25 12:56] LABS: ALBUMIN 3.8 g/dL (3.2-5.5); ALBUMIN/GLOBULIN RATIO 0.8 (1.0-2.2); ALKALINE PHOSPHATASE 141 IU/L (42-121); ALT ALANINE AMINOTRANSFERASE 15 IU/L (10-60); AST ASPARTATE AMINOTRANSFERASE 14 IU/L (10-42); BILIRUBIN,TOTAL 0.4 mg/dL (0.2-1.0); BUN - BLOOD UREA NITROGEN 26 mg/dL (6-20); CALCIUM 9.7 mg/dL (8.5-10.3); CARBON DIOXIDE - CO2 28 mmol/L (21-32); CHLORIDE 100 mmol/L (101-111); CHOL/HDL RATIO 4.4 (<5.0); CHOLESTEROL 158 mg/dL; CREATININE 0.6 mg/dL (0.6-1.3); GFR - MDRD 138 (>89); GLUCOSE 130 mg/dL (74-104); HDL CHOLESTEROL 36 mg/dL; LDL CHOLESTEROL,CALCULATED 74 mg/dL; LDL/HDL RATIO 2.1 (<3.6); POTASSIUM 4.4 mmol/L (3.5-4.5); SODIUM 136 mmol/L (135-145); TOTAL PROTEIN 8.3 g/dL (6.4-8.9); TRIGLYCERIDES 239 mg/dL (48-352); VLDL CHOLESTEROL 48 mg/dL
[2023-04-25 13:03] LABS: THYROID STIMULATING HORMONE 5.47 uIU/mL (0.34-5.60)
== END 2023-04-25 08:13 | disposition home or self-care (01) ==
LOC: LAB.N 08:12
PROVIDERS: ATTEND Family Medicine
DX: E11.59 Type 2 diabetes mellitus with other circulatory complications (principal); Z89.512 Acquired absence of left leg below knee; E78.1 Pure hyperglyceridemia
CPT/HCPCS: 36415; 80050; 80061; 82043; 82570; 83721